=== PATIENT | female | born 1955 | race Hispanic/Latino ===

== ENCOUNTER 2018-01-11 13:19 | Emergency (ER) | payer BC, SELFPAY ==
[2018-01-11 14:10] LABS: #Lymphocytes 0.7 thou/uL (1.20-3.40); #Monocytes 0.1 thou/uL (0.11-0.59); #Neutrophils 6.1 thou/uL (1.40-6.50); %Basophils 0.1 % (0.0-1.0); %Eosinophils 0.3 % (0.0-10.0); %Monocytes 1.4 % (0.0-10.0); %Neutrophils 88.1 % (42.0-75.0); Hemoglobin 14.1 g/dL (12.0-16.0); Mean Corpuscular HGB CONC 35.2 g/dL (32.0-36.0); Mean Corpuscular Hemoglobin 30.8 pg (27.0-31.0); Mean Corpuscular Volume 87.4 fL (78.0-98.0); Mean Platelet Volume 8.4 fL (7.4-10.4); Platelet Count 203 thou/uL (130-400); RBC Distribution Width 12.6 % (11.5-14.5); Red Blood Cell (RBC) Count 4.57 mill/uL (4.20-5.40); White Blood Cell (WBC) Count 6.9 thou/uL (4.8-10.8)
[2018-01-11 14:34] LABS: ALT (SGPT) 25 U/L (8-55); AST (SGOT) 17 U/L (5-34); Albumin 4.3 g/dL (3.4-4.8); Alkaline Phosphatase 71 U/L (40-150); Anion Gap 16 mmol/L (10-20); BUN (Urea Nitrogen) 11 mg/dL (9.8-20.1); Bilirubin, Total 0.9 mg/dL (0.2-1.2); Calc. Creatinine Clearance 0 mL/min (70-130); Calcium 9.4 mg/dL (7.8-10.44); Carbon Dioxide 24 mmol/L (23-31); Chloride 101 mmol/L (98-107); Estimated GFR-MDRD 87; Globulin 3.3 g/dL (2.4-3.5); Glucose 214 mg/dL (80-115); Lipase Less than 4 U/L (8-78); Potassium 3.5 mmol/L (3.5-5.1); Protein, Total 7.6 g/dL (6.0-8.3); Sodium 137 mmol/L (136-145)
[2018-01-11 15:13] LABS: Bilirubin Negative (Negative); Blood, Urine Negative (Negative); Clarity CLEAR (Clear); Glucose, Urine (Dipstick) 250 mg/dL (Negative); Leukocyte Small (Negative); Nitrite Negative (Negative); Protein, Urine (Dipstick) Negative (Neg-Trace); Specific Gravity, Urine 1.017 (1.002-1.036); pH, Urine 6.5 (5.0-9.0)
[2018-01-11 15:14] LABS: Bacteria/HPF None Seen HPF (None Seen); Hyaline Casts/LPF 0-3 HYALINE CAST LPF (0-3 Hyaline); Pathc Cast-AUWi Flag 0.29 (0-2.49); RBC/HPF 0-3 HPF (0-3); Squamous Epithelial 0-3 HPF (0-3); WBC/HPF 0-3 HPF (0-3)
[2018-01-11 15:42] LABS: Troponin I Less than 0.010 ng/mL (< 0.028)
[2018-01-11] MEDS ORDERED: Ondansetron HCl/PF 4 MG/2 ML Vial ONE (15:49)
[2018-01-11] MEDS ORDERED: Morphine 4 MG/ML VIAL ONE (15:49)
--- NOTE | 2018-01-11 17:28 | CT ---
ABDOMEN CT WITHOUT CONTRAST PELVIC CT WITHOUT CONTRAST: Date: 01/11/18 COMPARISON: 08/23/16. HISTORY: Abdominal pain. Pelvic pain. TECHNIQUE: Abdomen and pelvic CT performed without contrast. Enteric contrast administered. Coronal reformatted images submitted for interpretation. FINDINGS: ABDOMEN CT: Lung bases are clear. Limited evaluation of the solid organs due to lack of IV contrast. There is hypoattenuation in the spleen, incompletely evaluated, with an attenuation coefficient of 35 Hounsfield units, measuring 2.8 x 2.5 cm. Lesion currently measures 2.5 x 2.2 cm. This area of hypoa ttenuation was present on the previous examination. Hypodensity in the right hepatic lobe is also unc hanged and has an attenuation coefficient of -1 Hounsfield units, compatible with hepatic cysts. Pancreas unremarkable. Gallbladder appears to be surgically absent. Exophytic hypodense emanating from the mid pole of the right kidney has an attenuation coefficient of 6 Hounsfield units, compatible with a 2.8 x 3.8 cm cyst. Cluster of nonobstructing calculi in the lo wer pole of the left kidney measuring 7.0 mm. Bilaterally, no obstructive uropathy. No gastrohepatic, retrocrural, or periportal lymphadenopathy. No mesenteric mass, lymphadenopathy, free air, or free fluid. Gastric mucosa, duodenum, and multiple normal caliber small bowel loops are noted. Ileocecal junction is normal. Normal caliber appendix. Scattered fecal material in a nondistended, nondilated colon. Oc casional diverticulum. No diverticulitis. PELVIC CT: Surgically absent uterus. No pelvic mass, lymphadenopathy, free air, or free fluid. Urinary bladder i s unremarkable. No lytic or blastic lesions in the osseous structures. IMPRESSION: 1. No evidence of obstructive uropathy. 2. Hypodensities in the spleen, liver, and kidneys, unchanged. 3. Hypodense lesion in the spleen has increased in size. Nonemergent abdomen MRI is recommended. CODE T. POS: [facility]
== END 2018-01-11 18:07 | disposition home or self-care (01) ==
LOC: ERS 13:19
DX: R11.2 Nausea with vomiting, unspecified (principal); R19.7 Diarrhea, unspecified; E11.9 Type 2 diabetes mellitus without complications; E78.5 Hyperlipidemia, unspecified; I10 Essential (primary) hypertension; F32.9 Major depressive disorder, single episode, unspecified; Z79.84 Long term (current) use of oral hypoglycemic drugs; Z79.899 Other long term (current) drug therapy
CPT/HCPCS: 36415; 74176; 80053; 81003; 81015; 83690; 84484; 85025; 93005; 96374; 96375; J2270; J2405

== ENCOUNTER 2018-03-26 20:47 | Emergency (ER) | payer SELFPAY ==
[2018-03-26] MEDS ORDERED: Ondansetron ODT 8 MG TAB ONE (21:03)
[2018-03-26] MEDS ORDERED: Lidocaine Viscous Sol 2% 15 ml UD Cup ONE (21:04)
[2018-03-26] MEDS ORDERED: Mag-Al 1200 mg/1200 mg/30 ML UDCUP ONE (21:04)
[2018-03-26 21:31] LABS: Bilirubin Negative (Negative); Blood, Urine Negative (Negative); Clarity CLEAR (Clear); Glucose, Urine (Dipstick) >=1000 mg/dL (Negative); Leukocyte Small (Negative); Nitrite Negative (Negative); Protein, Urine (Dipstick) Negative (Neg-Trace); Specific Gravity, Urine 1.036 (1.002-1.036); Urobilinogen 0.2 mg/dL (0.2-1.0); pH, Urine 5.5 (5.0-9.0)
[2018-03-26 21:34] LABS: Bacteria/HPF None Seen HPF (None Seen); Hyaline Casts/LPF 4-6 HYALINE CAST LPF (0-3 Hyaline); Pathc Cast-AUWi Flag 0.29 (0-2.49); Squamous Epithelial 0-3 HPF (0-3); WBC/HPF 21-50 HPF (0-3)
[2018-03-26 21:51] LABS: #Eosinphils 0.1 thou/uL (0.0-0.7); #Lymphocytes 1.1 thou/uL (1.20-3.40); #Monocytes 0.4 thou/uL (0.11-0.59); #Neutrophils 3.4 thou/uL (1.40-6.50); %Basophils 0.2 % (0.0-1.0); %Eosinophils 2.4 % (0.0-10.0); %Lymphocytes 21.8 % (21.0-51.0); %Monocytes 8.1 % (0.0-10.0); %Neutrophils 67.5 % (42.0-75.0); Hemoglobin 12.5 g/dL (12.0-16.0); Mean Corpuscular HGB CONC 33.5 g/dL (32.0-36.0); Mean Corpuscular Hemoglobin 30.2 pg (27.0-31.0); Mean Corpuscular Volume 90.2 fL (78.0-98.0); Mean Platelet Volume 9.5 fL (7.4-10.4); Platelet Count 166 thou/uL (130-400); RBC Distribution Width 12.3 % (11.5-14.5); Red Blood Cell (RBC) Count 4.15 mill/uL (4.20-5.40); White Blood Cell (WBC) Count 5.1 thou/uL (4.8-10.8)
[2018-03-26 22:16] LABS: ALT (SGPT) 21 U/L (8-55); AST (SGOT) 13 U/L (5-34); Albumin 3.6 g/dL (3.4-4.8); Alkaline Phosphatase 71 U/L (40-150); Anion Gap 12 mmol/L (10-20); BUN (Urea Nitrogen) 16 mg/dL (9.8-20.1); Bilirubin, Total 0.3 mg/dL (0.2-1.2); Calc. Creatinine Clearance 0 mL/min (70-130); Calcium 9.2 mg/dL (7.8-10.44); Carbon Dioxide 25 mmol/L (23-31); Chloride 105 mmol/L (98-107); Estimated GFR-MDRD 70; Globulin 2.7 g/dL (2.4-3.5); Glucose 327 mg/dL (80-115); Lipase 13 U/L (8-78); Potassium 3.7 mmol/L (3.5-5.1); Protein, Total 6.3 g/dL (6.0-8.3); Sodium 138 mmol/L (136-145)
== END 2018-03-26 22:25 | disposition home or self-care (01) ==
LOC: ERS 20:47
DX: N39.0 Urinary tract infection, site not specified (principal); R10.13 Epigastric pain; E78.5 Hyperlipidemia, unspecified; I10 Essential (primary) hypertension; F32.9 Major depressive disorder, single episode, unspecified; Z79.4 Long term (current) use of insulin; Z79.899 Other long term (current) drug therapy
CPT/HCPCS: 36415; 80053; 81003; 81015; 83690; 85025; 93005

== ENCOUNTER 2018-05-02 09:34 | Outpatient (CLI) | payer MEDICARE ==
--- NOTE | 2018-05-02 11:55 | MRI ---
MRI OF THE ABDOMEN WITHOUT AND WITH CONTRAST: Comparison: CT abdomen/pelvis 01-11-18, MRI abdomen 02-15-15 Technique: Multiplanar, multisequence MRI images were obtained of the abdomen without and with IV con trast. FINDINGS: There is a lobulated lesion in the spleen demonstrating high T2 signal. This measures 2.8 cm in great est dimension. After the administration of contrast, this demonstrates peripheral rim enhancement wit h eventual fill in. The delayed phase images show this lesion to be hyperintense compared to the rest of the spleen. This lesion is stable compared to the prior MRI and most likely represents a hemangio ma. There is a stable septated cyst in the right lobe of the liver measuring 2.6 cm in greatest dimension . There is a stable cyst in the right kidney measuring 3.9 cm in greatest dimension. There is a tiny subcentimeter lesion along the body of the pancreas measuring approximately 7 mm in size which could represent a small cyst emanating from the pancreas. This could also be artifactual. This was not seen on the prior examination. A small stable cyst is seen in the left kidney measuring approximately 1 c m in size. The adrenal glands are unremarkable. The gallbladder has been removed. No biliary dilatation is seen. No abdominal adenopathy is seen. Mild degenerative changes are seen in the spine. There appears to be a stable hemangioma within the L 1 vertebral body. IMPRESSION: 1. Stable splenic hemangioma. 2. Hepatic cysts. 3. Renal cysts. 4. Small hypodense region adjacent the pancreatic body may represent a small cyst. This could also be artifactual. POS: [facility]
[2018-05-02 13:04] LABS: Estimated GFR-MDRD - POC Greater than 90
== END 2018-05-02 09:35 | disposition home or self-care (01) ==
LOC: MRI 09:34
PROVIDERS: ATTEND Family Medicine
DX: R93.5 Abnormal findings on diagnostic imaging of other abdominal regions, including retroperitoneum (principal); D18.03 Hemangioma of intra-abdominal structures; K76.89 Other specified diseases of liver; N28.1 Cyst of kidney, acquired
CPT/HCPCS: 74183; 82565

== ENCOUNTER 2018-05-16 06:22 | Emergency (ER) | payer MEDICARE ==
[2018-05-16] MEDS ORDERED: Ondansetron PF 4 MG/2 ML Vial ONE (06:43)
[2018-05-16] MEDS ORDERED: Dicyclomine 20 MG TAB ONE (06:43)
[2018-05-16] MEDS ORDERED: Pantoprazole 40 MG VIAL ONE (06:43)
[2018-05-16 06:44] LABS: #Eosinphils 0.1 thou/uL (0.0-0.7); #Lymphocytes 0.8 thou/uL (1.20-3.40); #Monocytes 0.4 thou/uL (0.11-0.59); #Neutrophils 5.6 thou/uL (1.40-6.50); %Eosinophils 1.6 % (0.0-10.0); %Lymphocytes 11.9 % (21.0-51.0); %Monocytes 5.9 % (0.0-10.0); %Neutrophils 80.6 % (42.0-75.0); Hemoglobin 13.8 g/dL (12.0-16.0); Mean Corpuscular HGB CONC 34.4 g/dL (32.0-36.0); Mean Corpuscular Hemoglobin 30.2 pg (27.0-31.0); Mean Corpuscular Volume 87.7 fL (78.0-98.0); Mean Platelet Volume 9.5 fL (7.4-10.4); Platelet Count 198 thou/uL (130-400); RBC Distribution Width 12.2 % (11.5-14.5); Red Blood Cell (RBC) Count 4.59 mill/uL (4.20-5.40)
[2018-05-16 07:06] LABS: ALT (SGPT) 18 U/L (8-55); AST (SGOT) 17 U/L (5-34); Albumin 3.9 g/dL (3.4-4.8); Alkaline Phosphatase 109 U/L (40-150); Anion Gap 13 mmol/L (10-20); BUN (Urea Nitrogen) 14 mg/dL (9.8-20.1); Calc. Creatinine Clearance 0 mL/min (70-130); Calcium 9.7 mg/dL (7.8-10.44); Carbon Dioxide 26 mmol/L (23-31); Chloride 101 mmol/L (98-107); Estimated GFR-MDRD 83; Globulin 3.6 g/dL (2.4-3.5); Glucose 305 mg/dL (80-115); Lipase Less than 4 U/L (8-78); Potassium 3.2 mmol/L (3.5-5.1); Protein, Total 7.5 g/dL (6.0-8.3); Sodium 137 mmol/L (136-145)
--- NOTE | 2018-05-16 07:47 | RAD ---
PORTABLE CHEST 1 VIEW: Date: 05/16/18 Time: 0701 hours HISTORY: Chest pain. FINDINGS: The heart size is normal. The aorta is tortuous. The lungs are well expanded without focal areas of c onsolidation, pneumothoraces, or pleural effusions. IMPRESSION: No radiographic evidence of acute cardiopulmonary process. POS: [facility]
[2018-05-16] MEDS ORDERED: Ketorolac Tromethamine 30 MG/ML VIAL ONE (08:44)
[2018-05-16 10:16] LABS: Bilirubin Negative (Negative); Blood, Urine Negative (Negative); Clarity CLEAR (Clear); Glucose, Urine (Dipstick) >=1000 mg/dL (Negative); Leukocyte Negative (Negative); Nitrite Negative (Negative); Protein, Urine (Dipstick) Negative (Neg-Trace); Specific Gravity, Urine 1.031 (1.002-1.036); Urobilinogen 0.2 mg/dL (0.2-1.0); pH, Urine 6.5 (5.0-9.0)
--- NOTE | 2018-05-20 17:16 | EKG ---
Test Reason : Blood Pressure : / mmHG Vent. Rate : 085 BPM Atrial Rate : 085 BPM P-R Int : 136 ms QRS Dur : 070 ms QT Int : 370 ms P-R-T Axes : 027 -04 028 degrees QTc Int : 440 ms Normal sinus rhythm Normal ECG Confirmed by ROCÍO TATE ([id number]), editorial specialist BELÉN RAMOS ([id number]) on 05/20/2018 5:16:07 PM Referred By: BEBETO Confirmed By:ROCÍO TATE
== END 2018-05-16 10:59 | disposition home or self-care (01) ==
LOC: ERS 06:22
DX: R10.9 Unspecified abdominal pain (principal); E11.9 Type 2 diabetes mellitus without complications; Z79.4 Long term (current) use of insulin; E78.5 Hyperlipidemia, unspecified; I10 Essential (primary) hypertension; F32.9 Major depressive disorder, single episode, unspecified; Z79.899 Other long term (current) drug therapy; Z79.84 Long term (current) use of oral hypoglycemic drugs
CPT/HCPCS: 71045; 80053; 81003; 83605; 83690; 84484; 85025; 87086; 87804; 93005; 96361; 96374; 96375; C9113; J1885; J2405

== ENCOUNTER 2018-05-31 19:55 | Emergency (ER) | payer MEDICARE ==
[2018-05-31 20:46] LABS: #Eosinphils 0.1 thou/uL (0.0-0.7); #Monocytes 0.4 thou/uL (0.11-0.59); #Neutrophils 7.3 thou/uL (1.40-6.50); %Basophils 0.3 % (0.0-1.0); %Eosinophils 0.8 % (0.0-10.0); %Lymphocytes 11.4 % (21.0-51.0); %Monocytes 4.9 % (0.0-10.0); %Neutrophils 82.5 % (42.0-75.0); Hemoglobin 14.2 g/dL (12.0-16.0); Mean Corpuscular HGB CONC 33.5 g/dL (32.0-36.0); Mean Corpuscular Hemoglobin 29.5 pg (27.0-31.0); Mean Corpuscular Volume 88.1 fL (78.0-98.0); Mean Platelet Volume 9.6 fL (7.4-10.4); Platelet Count 205 thou/uL (130-400); RBC Distribution Width 12.4 % (11.5-14.5); White Blood Cell (WBC) Count 8.8 thou/uL (4.8-10.8)
[2018-05-31 21:06] LABS: ALT (SGPT) 25 U/L (8-55); AST (SGOT) 18 U/L (5-34); Albumin 4.1 g/dL (3.4-4.8); Alkaline Phosphatase 104 U/L (40-150); Anion Gap 18 mmol/L (10-20); BUN (Urea Nitrogen) 10 mg/dL (9.8-20.1); Bilirubin, Total 0.9 mg/dL (0.2-1.2); Calc. Creatinine Clearance 0 mL/min (70-130); Calcium 9.9 mg/dL (7.8-10.44); Carbon Dioxide 24 mmol/L (23-31); Chloride 98 mmol/L (98-107); Estimated GFR-MDRD 73; Globulin 3.3 g/dL (2.4-3.5); Glucose 310 mg/dL (80-115); Potassium 3.5 mmol/L (3.5-5.1); Protein, Total 7.4 g/dL (6.0-8.3); Sodium 136 mmol/L (136-145)
--- NOTE | 2018-05-31 21:51 | RAD ---
ACUTE ABDOMINAL SERIES: 05/31/18 PROVIDED CLINICAL HISTORY: Vomiting and constipation. FINDINGS: Comparison chest radiograph 05/16/18. The cardiac and mediastinal silhouette is within normal limits. Vascular calcification involves the a ortic arch. No focal consolidation, pleural fluid or pneumothorax apparent. Stable right mid lung zon e parenchymal scarring. No evidence for pneumoperitoneum. Nonspecific bowel gas pattern. Cholecystectomy clips right upper qu adrant. Inferior pole left renal calculi. IMPRESSION: 1. No evidence for an acute cardiopulmonary process. 2. Nonspecific bowel gas pattern. 3. Left renal calculi. POS: [facility]
[2018-05-31 22:33] LABS: Bilirubin Negative (Negative); Blood, Urine Negative (Negative); Glucose, Urine (Dipstick) >=1000 mg/dL (Negative); Leukocyte Negative (Negative); Nitrite Negative (Negative); Protein, Urine (Dipstick) Negative (Neg-Trace); Specific Gravity, Urine 1.015 (1.005-1.030); Urobilinogen 0.2 mg/dL (0.2-1.0)
[2018-05-31 22:34] LABS: Clarity Clear (Clear)
== END 2018-05-31 22:51 | disposition home or self-care (01) ==
LOC: ERS 19:55
DX: K59.00 Constipation, unspecified (principal); E11.9 Type 2 diabetes mellitus without complications; E78.5 Hyperlipidemia, unspecified; I10 Essential (primary) hypertension; F32.9 Major depressive disorder, single episode, unspecified; Z79.899 Other long term (current) drug therapy; Z79.84 Long term (current) use of oral hypoglycemic drugs
CPT/HCPCS: 36415; 74022; 80053; 81003; 85025

== ENCOUNTER 2018-07-03 07:16 | Outpatient (CLI) | payer MEDICARE ==
--- NOTE | 2018-07-03 13:38 | NM ---
RADIONUCLIDE GASTRIC EMPTYING SCAN: Date: 07/03/18 HISTORY: Abnormal weight loss, constipation, nausea, vomiting, and abdominal pain. RADIOPHARMACEUTICAL: 2.1 mCi technetium-99m sulfur colloid administered orally in scrambled eggs. FINDINGS: There is 22% emptying of the ingested gastric contents at 1 hour, 23% emptying at 2 hours, 28% emptyi ng at 3 hours, and 54% emptying at 4 hours. The calculated gastric emptying halftime measures 231 minutes. IMPRESSION: Delayed gastric emptying. POS: C
== END 2018-07-03 07:17 | disposition home or self-care (01) ==
LOC: NM 07:16
PROVIDERS: ATTEND Internal Medicine Gastroenterology
DX: R10.13 Epigastric pain (principal); R63.4 Abnormal weight loss
CPT/HCPCS: 78264; A9541

== ENCOUNTER 2018-07-08 06:49 | Emergency (ER) | payer MEDICARE ==
[2018-07-08] MEDS ORDERED: Ketorolac Tromethamine 30 MG/ML VIAL ONE (07:37)
== END 2018-07-08 08:02 | disposition home or self-care (01) ==
LOC: ERS 06:49
DX: M54.31 Sciatica, right side (principal); E11.9 Type 2 diabetes mellitus without complications; E78.5 Hyperlipidemia, unspecified; I10 Essential (primary) hypertension; Z79.4 Long term (current) use of insulin; Z79.899 Other long term (current) drug therapy
CPT/HCPCS: 96372; J1885

== ENCOUNTER 2018-08-27 11:44 | Emergency (ER) | payer MEDICARE ==
[2018-08-27] MEDS ORDERED: Metoclopramide HCl 10 MG/2 ML VIAL ONE (12:23)
--- NOTE | 2018-08-27 12:46 | RAD ---
FRadiograph chest one view Radiograph abdomen 2 views: 08/27/2018 HISTORY: 63-year-old female with generalized abdominal pain with nausea and vomiting. COMPARISON: 05/31/2018 FINDINGS: No pulmonary edema or consolidation. No cardiomegaly. No pneumothorax or pneumoperitoneum. Cholecyste ctomy clips. Normal bowel gas pattern. Less volume of stool currently compared to previous. No other significant interval change. Small left renal calculi, 2 adjacent to each other. IMPRESSION: 1. No acute findings. 2. Status post cholecystectomy. 3. Left nephrolithiasis.
[2018-08-27 12:55] LABS: #Lymphocytes 1.1 thou/uL (1.20-3.40); #Monocytes 0.3 thou/uL (0.11-0.59); #Neutrophils 4.8 thou/uL (1.40-6.50); %Basophils 0.2 % (0.0-1.0); %Eosinophils 0.8 % (0.0-10.0); %Lymphocytes 17.8 % (21.0-51.0); %Monocytes 4.5 % (0.0-10.0); %Neutrophils 76.7 % (42.0-75.0); Hemoglobin 13.8 g/dL (12.0-16.0); Mean Corpuscular HGB CONC 33.1 g/dL (32.0-36.0); Mean Corpuscular Hemoglobin 29.6 pg (27.0-31.0); Mean Corpuscular Volume 89.6 fL (78.0-98.0); Mean Platelet Volume 9.4 fL (7.4-10.4); Platelet Count 191 thou/uL (130-400); Red Blood Cell (RBC) Count 4.64 mill/uL (4.20-5.40); White Blood Cell (WBC) Count 6.2 thou/uL (4.8-10.8)
[2018-08-27] MEDS ORDERED: Ondansetron PF 4 MG/2 ML Vial ONE ×2 (12:58→12:59)
[2018-08-27] MEDS ORDERED: diphenhydrAMINE 50 MG/ML VIAL ONE (13:05)
[2018-08-27 13:08] LABS: ALT (SGPT) 24 U/L (8-55); AST (SGOT) 17 U/L (5-34); Albumin 4.3 g/dL (3.4-4.8); Alkaline Phosphatase 87 U/L (40-150); Anion Gap 12 mmol/L (10-20); BUN (Urea Nitrogen) 15 mg/dL (9.8-20.1); Bilirubin, Total 0.8 mg/dL (0.2-1.2); Calc. Creatinine Clearance 0 mL/min (70-130); Calcium 9.6 mg/dL (7.8-10.44); Carbon Dioxide 26 mmol/L (23-31); Chloride 101 mmol/L (98-107); Estimated GFR-MDRD 75; Glucose 336 mg/dL (80-115); Lipase 4 U/L (8-78); Potassium 3.3 mmol/L (3.5-5.1); Protein, Total 7.3 g/dL (6.0-8.3); Sodium 136 mmol/L (136-145)
== END 2018-08-27 14:11 | disposition home or self-care (01) ==
LOC: ERS 11:44
DX: E11.43 Type 2 diabetes mellitus with diabetic autonomic (poly)neuropathy (principal); K31.84 Gastroparesis; I10 Essential (primary) hypertension; Z79.4 Long term (current) use of insulin; Z79.899 Other long term (current) drug therapy
CPT/HCPCS: 74022; 80053; 83690; 84484; 85025; 93005; 96361; 96374; 96375; J1200; J2405; J2765

== ENCOUNTER 2018-08-28 03:56 | Emergency (ER) | payer MEDICARE ==
[2018-08-28] MEDS ORDERED: Haloperidol Lactate 5 MG/ML VIAL ONE (04:58)
[2018-08-28] MEDS ORDERED: Pantoprazole 40 MG VIAL ONE (04:58)
[2018-08-28] MEDS ORDERED: Dicyclomine 20 MG TAB ONE (04:58)
[2018-08-28 05:50] LABS: Bilirubin Negative (Negative); Blood, Urine Negative (Negative); Clarity CLEAR (Clear); Glucose, Urine (Dipstick) 500 mg/dL (Negative); Leukocyte Trace (Negative); Nitrite Negative (Negative); Protein, Urine (Dipstick) Negative (Neg-Trace); Specific Gravity, Urine 1.014 (1.002-1.036); Urobilinogen 0.2 mg/dL (0.2-1.0)
[2018-08-28 05:53] LABS: Bacteria/HPF None Seen HPF (None Seen); Hyaline Casts/LPF 0-3 HYALINE CAST LPF (0-3 Hyaline); Pathc Cast-AUWi Flag 0.13 (0-2.49); Squamous Epithelial 0-3 HPF (0-3); WBC/HPF 0-3 HPF (0-3)
[2018-08-28 06:06] LABS: #Eosinphils 0.1 thou/uL (0.0-0.7); #Monocytes 0.3 thou/uL (0.11-0.59); #Neutrophils 3.5 thou/uL (1.40-6.50); %Basophils 0.3 % (0.0-1.0); %Eosinophils 1.1 % (0.0-10.0); %Lymphocytes 20.8 % (21.0-51.0); %Monocytes 6.9 % (0.0-10.0); Hemoglobin 12.4 g/dL (12.0-16.0); Mean Corpuscular HGB CONC 33.2 g/dL (32.0-36.0); Mean Corpuscular Hemoglobin 29.7 pg (27.0-31.0); Mean Corpuscular Volume 89.2 fL (78.0-98.0); Mean Platelet Volume 9.3 fL (7.4-10.4); Platelet Count 165 thou/uL (130-400); Red Blood Cell (RBC) Count 4.18 mill/uL (4.20-5.40); White Blood Cell (WBC) Count 4.9 thou/uL (4.8-10.8)
[2018-08-28 06:29] LABS: ALT (SGPT) 21 U/L (8-55); AST (SGOT) 13 U/L (5-34); Albumin 3.9 g/dL (3.4-4.8); Alkaline Phosphatase 72 U/L (40-150); Anion Gap 12 mmol/L (10-20); BUN (Urea Nitrogen) 9 mg/dL (9.8-20.1); Bilirubin, Total 0.9 mg/dL (0.2-1.2); Calc. Creatinine Clearance 0 mL/min (70-130); Carbon Dioxide 23 mmol/L (23-31); Chloride 105 mmol/L (98-107); Estimated GFR-MDRD 79; Globulin 2.6 g/dL (2.4-3.5); Glucose 233 mg/dL (80-115); Lipase 4 U/L (8-78); Potassium 3.1 mmol/L (3.5-5.1); Protein, Total 6.5 g/dL (6.0-8.3); Sodium 137 mmol/L (136-145)
--- NOTE | 2018-08-28 08:35 | CT ---
CT ABDOMEN AND PELVIS WITHOUT IV CONTRAST: Date: 08/28/18 INDICATION: History of epigastric abdominal pain that is now severe since . COMPARISON: CT of the abdomen without contrast dated 01/11/18. MRI of abdomen dated 05/02/18. FINDINGS: The lack of IV contrast slightly limits image detail. Lung bases are clear. The hepatic and renal cysts are stable. Left-sided nephrolithiasis is stable. S plenic hemangioma is stable. Unopacified pancreas and adrenal glands are unremarkable appearing. Unopacified large and small bowel are within normal limits. There are multiple small calcifications within the left gonadal vein. No free fluid is evident. There is diffuse osteopenia. There is scattered degenerative and osteoarthritic change. There is a dali ny hemangioma within the right L1 vertebra. IMPRESSION: No definite acute CT abnormality. POS: [facility]
== END 2018-08-28 07:39 | disposition home or self-care (01) ==
LOC: ERS 03:56
DX: E11.43 Type 2 diabetes mellitus with diabetic autonomic (poly)neuropathy (principal); K31.84 Gastroparesis; E78.5 Hyperlipidemia, unspecified; I10 Essential (primary) hypertension; Z79.4 Long term (current) use of insulin; Z79.899 Other long term (current) drug therapy; Z79.84 Long term (current) use of oral hypoglycemic drugs
CPT/HCPCS: 36415; 74176; 80053; 81003; 81015; 83690; 85025; 93005; 96361; 96374; 96375; C9113; J1630

== ENCOUNTER 2019-01-30 07:49 | Emergency (ER) | payer MEDICARE ==
--- NOTE | 2019-01-30 09:24 | CT ---
CT LUMBAR SPINE WITHOUT CONTRAST: Date: 01/30/19 Multiplanar reconstructions. INDICATION: Back pain. Right leg pain. FINDINGS: Lumbar vertebra maintain normal height and alignment. There is no evidence of spondylolisthesis. No c ompression or fracture. Degenerative disc changes are prominent at L4-5 with vacuum phenomenon and di sc narrowing. At L1-2, no significant disc bulge. No central canal or foraminal stenosis. At L2-3, there is mild diffuse disc bulge. Mild to moderate facet hypertrophy. Mild central canal jacqueline nosis. At L3-4, mild diffuse disc bulge flattens the thecal sac. Mild to moderate facet hypertrophy. Mild ce ntral canal stenosis. At L4-5, degenerative disc changes as noted above. Mild diffuse disc bulge. Moderate facet hypertroph y. Mild to moderate central canal stenosis. Left foraminal stenosis secondary to disc bulge and hyper trophic change. At L5-S1, there is mild disc bulge. No significant central canal or foraminal stenosis. IMPRESSION: Degenerative disc changes are most prominent at the L4-5 level. See description at each level above. POS: [facility]
--- NOTE | 2019-01-30 09:27 | CT ---
CT PELVIS WITHOUT IV CONTRAST: Date: 01/30/19 INDICATION: Emergency room examination for right leg pain extending from the hip to the knee for 2-3 days with a history of sciatica. FINDINGS: There is an intramuscular lipoma involving the left iliacus extending down the anterior left leg, lydia ng the course of the tendon, measuring approximately 5.4 x 13.0 cm. There are scattered vascular calcifications. Unopacified large and small bowel are unremarkable appea ring. The reproductive structures are surgically absent. There is a normal appendix in the right lowe r quadrant. There are fat-containing inguinal hernias bilaterally. There is diffuse osteopenia. No displaced fracture is grossly evident. There is moderate degenerative change of both SI joints. There is mild degenerative change of both hips. IMPRESSION: 1. No acute displaced fracture involving the pelvis. 2. 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 3. Other chronic findings as above. POS: [facility]
[2019-01-30] MEDS ORDERED: Diazepam 5 MG TAB ONE (09:37)
== END 2019-01-30 09:50 | disposition home or self-care (01) ==
LOC: ERS 07:49
DX: M51.36 Other intervertebral disc degeneration, lumbar region (principal); E11.9 Type 2 diabetes mellitus without complications; I10 Essential (primary) hypertension; Z79.899 Other long term (current) drug therapy
CPT/HCPCS: 72131; 72192

== ENCOUNTER 2019-05-04 10:05 | Emergency (ER) | payer MEDICARE ==
[2019-05-04] MEDS ORDERED: Ondansetron ODT 8 MG TAB ONE (11:16)
[2019-05-04] MEDS ORDERED: Ondansetron PF 4 MG/2 ML Vial ONE (11:17)
[2019-05-04 11:34] LABS: #Lymphocytes 0.8 thou/uL (1.20-3.40); #Monocytes 0.4 thou/uL (0.11-0.59); #Neutrophils 6.5 thou/uL (1.40-6.50); %Basophils 0.2 % (0.0-1.0); %Eosinophils 0.1 % (0.0-10.0); %Lymphocytes 10.3 % (21.0-51.0); %Monocytes 5.6 % (0.0-10.0); %Neutrophils 83.8 % (42.0-75.0); Hemoglobin 12.6 g/dL (12.0-16.0); Mean Corpuscular HGB CONC 32.5 g/dL (32.0-36.0); Mean Corpuscular Hemoglobin 28.6 pg (27.0-31.0); Mean Corpuscular Volume 87.9 fL (78.0-98.0); Mean Platelet Volume 9.5 fL (7.4-10.4); Platelet Count 224 thou/uL (130-400); RBC Distribution Width 12.3 % (11.5-14.5); Red Blood Cell (RBC) Count 4.42 mill/uL (4.20-5.40); White Blood Cell (WBC) Count 7.7 thou/uL (4.8-10.8)
--- NOTE | 2019-05-04 11:49 | RAD ---
XR Abdomen 2 View/1 View Cxr History: Nausea and vomiting Comparison: Radiograph abdomen August 2018 Findings: Abnormal nodular density projects over the right upper lobe. Mild rightward curvature of th e thoracic spine. No pneumothorax. No effusion. Low-grade S-shaped scoliosis thoracolumbar spine. Reported surgical clips. There appear to be calcifications projecting over the left and right renal collecting systems. No dilated loops of large or small bowel. Mild degenerative disease of the SI joints. Impression: 1. Abnormal nodular density projecting over the right upper lobe for which nonemergent chest CT recom mended for further evaluation. 2. Bilateral nephrolithiasis. 3. No evidence for bowel obstruction.
[2019-05-04 11:58] LABS: ALT (SGPT) 20 U/L (8-55); AST (SGOT) 18 U/L (5-34); Albumin 4.4 g/dL (3.4-4.8); Alkaline Phosphatase 71 U/L (40-110); Anion Gap 14 mmol/L (10-20); BUN (Urea Nitrogen) 22 mg/dL (9.8-20.1); Bilirubin, Total 1.1 mg/dL (0.2-1.2); CK (CPK) 44 U/L (29-168); Calc. Creatinine Clearance 0 mL/min (70-130); Calcium 9.6 mg/dL (7.8-10.44); Carbon Dioxide 29 mmol/L (23-31); Chloride 99 mmol/L (98-107); Estimated GFR-MDRD 77; Glucose 190 mg/dL (80-115); Protein, Total 7.4 g/dL (6.0-8.3); Sodium 139 mmol/L (136-145)
[2019-05-04 12:50] LABS: Bacteria/HPF 4+ HPF (None Seen); Bilirubin Negative (Negative); Blood, Urine 1+ (Negative); Clarity Turbid (Clear); Glucose, Urine (Dipstick) Normal (Negative); Leukocyte 500 Leu/uL (Negative); Mucous/LPF 1+ LPF (<2+); Nitrite Negative (Negative); Protein, Urine (Dipstick) 50 mg/dL (Neg-Trace); Squamous Epithelial 0-3 HPF (0-3); Urobilinogen 3 mg/dL (Less than 2); WBC/HPF 21-50 HPF (0-3)
== END 2019-05-04 13:12 | disposition home or self-care (01) ==
LOC: ERS 10:05
DX: R11.2 Nausea with vomiting, unspecified (principal); R19.7 Diarrhea, unspecified; R10.9 Unspecified abdominal pain; E11.9 Type 2 diabetes mellitus without complications; E78.5 Hyperlipidemia, unspecified; E78.00 Pure hypercholesterolemia, unspecified; I10 Essential (primary) hypertension; Z79.899 Other long term (current) drug therapy; Z79.4 Long term (current) use of insulin; Z79.84 Long term (current) use of oral hypoglycemic drugs
CPT/HCPCS: 74022; 80053; 81003; 81015; 82550; 84484; 85025; 93005; 96361; 96374; J2405

== ENCOUNTER 2020-02-18 11:58 | Outpatient (CLI) | payer MEDICARE ==
--- NOTE | 2020-02-19 13:59 | MMO ---
Bilateral MAMMO Bilat Screen [facility]. CLINICAL HISTORY: Patient is 64 years old and is seen for screening. The patient has the following family history of breast cancer: sister. The patient has no personal history of cancer. The patient has a history of left needle biopsy more than 10 years ago - benign. VIEWS: The views performed were: bilateral craniocaudal with tomosynthesis and bilateral mediolateral oblique with tomosynthesis. This study has been interpreted with the assistance of computer-aided detection. MAMMOGRAM FINDINGS: There are scattered fibroglandular densities. There are benign appearing calcifications seen in both breasts. There are also vascular calcifications. There are no suspicious masses, suspicious calcifications, or new areas of architectural distortion. IMPRESSION: THERE IS NO MAMMOGRAPHIC EVIDENCE OF MALIGNANCY. A ROUTINE FOLLOW-UP MAMMOGRAM IN 1 YEAR IS RECOMMENDED. THE RESULTS OF THIS EXAM WERE SENT TO THE PATIENT. ACR BI-RADS Category 2 - Benign finding MAMMOGRAPHY NOTE: 1. A negative mammogram report should not delay a biopsy if a dominant of clinically suspicious mass is present. 2. Approximately 10% to 15% of breast cancers are not detected by mammography. 3. Adenosis and dense breasts may obscure an underlying neoplasm. Reported by: TOYA SIMMONS MD Electonically Signed: [id number]
== END 2020-02-18 11:59 | disposition home or self-care (01) ==
LOC: BICMAMMO 11:58
PROVIDERS: ATTEND Nurse Practitioner Family
DX: Z12.31 Encounter for screening mammogram for malignant neoplasm of breast (principal); Z80.3 Family history of malignant neoplasm of breast; Z91.89 Other specified personal risk factors, not elsewhere classified
CPT/HCPCS: 77063; 77067

== ENCOUNTER 2020-05-09 16:05 | Inpatient (IN) | payer MEDICARE ==
[~2020-05-09 16:05] MED LIST: Iopamidol-370 76% 500 ML 1 ML ONE
[2020-05-09 16:52] LABS: Hemoglobin 10.3 g/dL (12.0-16.0); Mean Corpuscular HGB CONC 32.9 g/dL (32.0-36.0); Mean Corpuscular Hemoglobin 26.2 pg (27.0-31.0); Mean Corpuscular Volume 79.8 fL (78.0-98.0); Mean Platelet Volume 9.9 fL (7.4-10.4); Platelet Count 162 thou/uL (130-400); RBC Distribution Width 15.1 % (11.5-14.5); Red Blood Cell (RBC) Count 3.94 mill/uL (4.20-5.40); White Blood Cell (WBC) Count 11.2 thou/uL (4.8-10.8)
--- NOTE | 2020-05-09 16:57 | RAD ---
XR Chest 1 View Portable HISTORY: Shortness of breath COMPARISON: 05/21/2019 FINDINGS: The heart size is normal. The lungs are well expanded without focal areas of consolidation, pneumothorax or pleural effusions. Nodular density in the right midlung is stable. There is scoliosis of the spine. IMPRESSION: No radiographic evidence of acute cardiopulmonary process. RECOMMENDATION: Evaluation of the right lung nodule with CT scan is recommended
[2020-05-09 17:04] LABS: ALT (SGPT) Less than 7 U/L (8-55); AST (SGOT) 8 U/L (5-34); Albumin 2.9 g/dL (3.4-4.8); Alkaline Phosphatase 138 U/L (40-110); Anion Gap 18 mmol/L (10-20); BUN (Urea Nitrogen) 19 mg/dL (9.8-20.1); Bilirubin, Total 0.8 mg/dL (0.2-1.2); Calc. Creatinine Clearance 0 mL/min (70-130); Calcium 8.1 mg/dL (7.8-10.44); Carbon Dioxide 24 mmol/L (23-31); Chloride 89 mmol/L (98-107); Globulin 3.9 g/dL (2.4-3.5); Glucose 522 mg/dL (80-115); Lipase Less than 4 U/L (8-78); Magnesium 1.6 mg/dL (1.6-2.6); Protein, Total 6.8 g/dL (6.0-8.3); Sodium 128 mmol/L (136-145)
[2020-05-09 17:08] LABS: Potassium 2.6 mmol/L (3.5-5.1)
[2020-05-09] MEDS ORDERED: methylPREDNISolone Sod Succ 40 MG VIAL ONE (17:20)
[2020-05-09] MEDS ORDERED: Famotidine/PF 20 mg/2ml Vial ONE (17:20)
[2020-05-09] MEDS ORDERED: Ondansetron PF 4 MG/2 ML Vial ONE (17:20)
[2020-05-09] MEDS ORDERED: diphenhydrAMINE 50 MG/ML VIAL ONE (17:20)
[2020-05-09] MEDS ORDERED: Promethazine HCl 25 MG/ML VIAL ONE (17:20)
[2020-05-09 17:32] LABS: Band 13 % (5-11); Large Platelets SLIGHT; Lymphocytes 2 % (21-51); MDiff Complete? YES; Monocytes 2 % (0-10); Neutrophil 83 % (42-75); Platelet Morphology Comment Appears Adequate; Polychromasia MODERATE = 3-4 cells (100X) (0-2/hpf); Schistocytes SLIGHT = 2-5 cells (100X) (0-1/hpf)
[2020-05-09 18:01] LABS: Bilirubin Negative (Negative); Blood, Urine 3+ (Negative); Clarity Turbid (Clear); Glucose, Urine (Dipstick) Greater than 1000 mg/dL (Negative); Ketone, Urine 10 mg/dL (Negative); Leukocyte 500 Leu/uL (Negative); Nitrite 2+ (Negative); Protein, Urine (Dipstick) 30 mg/dL (Neg-Trace); Specific Gravity, Urine 1.024 (1.002-1.036); Urobilinogen Normal mg/dL (Less than 2); WBC/HPF Greater than 50 HPF (0-3); pH, Urine 5.5 (5.0-9.0)
[2020-05-09 18:03] LABS: Bacteria/HPF 1+ HPF (None Seen)
[2020-05-09] MEDS ORDERED: Potassium Chloride 20 MEQ TAB ONE (18:11)
[2020-05-09] MEDS ORDERED: NS 0.9% w/ 40 MEQ KCL 1,000 ML IV SCH (18:30)
[2020-05-09] MEDS ORDERED: Insulin Regular 300 UNITS/3 ML VIAL ONE (19:06)
[2020-05-09] MEDS ORDERED: cefTRIAXone\\ROCEPHIN 1 GM VIAL ONE (19:06)
[2020-05-09 19:14] LABS: SARS-CoV-2 NAA Rapid Test Not Detected (NotDetected)
--- NOTE | 2020-05-09 19:19 | CT ---
EXAM: CT chest, abdomen, and pelvis with IV contrast: HISTORY: Hyperglycemia and abdominal pain with nausea and vomiting. COMPARISON: CT abdomen and pelvis on 01/27/2016. Patient has prior study study on 08/28/2018, the images are not avai lable for evaluation. FINDINGS: CT THORAX: Lungs: There is a spiculated right upper lobe mass measuring 2.3 cm which corresponds to the chest x- ray abnormality obtained on today's date. This is worrisome for neoplastic process. PET CT scan examination is recommended. There is linear hypodensity which extends laterally from this mass. Dependent bibasilar atelectasis is present. No additional mass is seen, and there is no pulmonary nod ule or pleural effusion. Lymph nodes: No enlarged mediastinal or hilar lymph nodes are seen by CT size criteria. Mediastinum: Vascular calcifications are seen in the coronary arteries and involving the thoracic aor ta. Interstitial very small hiatal hernia. Chest wall: No abnormalities CT ABDOMEN AND PELVIS: Liver: Calcified granuloma is present. Right hepatic lobe cyst is again noted. Gallbladder: Surgically absent.\ Pancreas: Small hypodense cystic lesion body the pancreas measuring 8 mm. Patient does have prior CT abdomen on 08/28/2018, and direct comparison with that study is recommended. This study is currently not available. Spleen:Stable hypodense lesion within the body of the spleen. This was shown to represent a hemangiom a on a prior MRI abdomen in 2016. This lesion is also stable when compared to CT abdomen in 2016. Adrenal glands: Right adrenal nodule measuring 1.4 cm. Left adrenal gland has a normal CT appearance. Kidneys: Stable Bosniak type II right renal cyst with cyst stable in size with persistent thin septat ion noted. Subcentimeter too small to characterize inferior pole left renal hypodense lesion is present which is also stable likely due to cyst. Stable inferior pole nonobstructing left renal calcu magan is noted. Urinary Bladder: Normal CT appearance but does extend just posterior to the level of the pubic symphy sis. Reproductive organs: Evidence of hysterectomy. Bowel: Scattered colonic diverticuli present. Loops of small bowel are normal in caliber. The appendi x is visualized and normal in caliber. Adenopathy:No enlarged lymph nodes are seen by CT size criteria. Peritoneum: No free fluid or fluid collection is seen. No free intraperitoneal gas is identified. Abdominal wall: There are findings likely due to prior hernia repair in the midline supraumbilical lo cation. Osseous structures: Degenerative changes are seen in the spine. No suspicious lytic or sclerotic osse ous lesions are identified. Hemangioma is seen in the L1 vertebral body. IMPRESSION: 1. Right upper lobe mass worrisome for neoplastic process. PET CT scan is recommended for further federico luation. 2. Small hypodense cystic lesion in the body the pancreas measuring 8 mm. Prior study was performed o n 08/28/2018; however, this study is not available for direct comparison at this time to evaluate for stability of this cystic pancreatic lesion. Direct comparison with prior exam is recommended. 3. Right adrenal nodule. This can also be further evaluated when prior CT abdomen becomes available f or direct comparison. 4. Additional findings as above.
[2020-05-09] MEDS ORDERED: Morphine 4 MG/ML VIAL ONE (20:36)
[2020-05-09] MEDS ORDERED: Dextrose 50% Abboject 50 ML SYRINGE SLOW IVP PRN (21:13)
[2020-05-09] MEDS ORDERED: HumaLOG 300 UNITS/3 ML VIAL SC PRN (21:13)
[2020-05-09] MEDS ORDERED: Dextrose 5% in Water 1,000 ML IV PRN (21:13)
[2020-05-09] MEDS ORDERED: Sodium Chloride 0.9% 1,000 ML IV SCH (21:15)
[2020-05-09 21:55] VITALS: BMI 25.8
[2020-05-09 22:54] LABS: Anion Gap 15 mmol/L (10-20); BUN (Urea Nitrogen) 16 mg/dL (9.8-20.1); Calc. Creatinine Clearance 75 mL/min (70-130); Calcium 7.9 mg/dL (7.8-10.44); Carbon Dioxide 24 mmol/L (23-31); Chloride 98 mmol/L (98-107); Glucose 374 mg/dL (80-115); Sodium 134 mmol/L (136-145)
[2020-05-09 22:59] LABS: Potassium 2.8 mmol/L (3.5-5.1)
[2020-05-09] MEDS ORDERED: Promethazine HCl 6.25 MG in Sodium Chloride 0.9% 50 ML IVPB PRN (23:41)
[2020-05-09] MEDS: Ondansetron PF 4 MG/2 ML Vial IVP PRN (23:44)
[2020-05-09] MEDS ORDERED: Potassium Chloride 40 MEQ in Sodium Chloride 0.9% 250 ML 250 ML IVPB SCH (23:59)
[2020-05-10] MEDS ORDERED: Insulin Glargine 15 UNITS in Pre-Filled Syringe 1 EACH SC SCH ×2 (00:15→21:00)
[2020-05-10] MEDS: Morphine 4 MG/ML VIAL SLOW IVP PRN ×5 (01:05→20:50)
--- NOTE | 2020-05-10 02:03 | HP ---
REASON FOR ADMISSION: Abdominal pain, nausea, vomiting. HISTORY OF PRESENT ILLNESS: This is a 65-year-old female patient who presented to the emergency room reporting nausea and vomiting and abdominal pain history going back to the day of her presentation. After being started on Victoza, she developed worsening of her ongoing nausea, vomiting, and abdominal pain that have been going on for the past couple of days as per her . She describes the pain as cramping in nature, localized in the upper abdominal area, mainly in the epigastric area with worsening of her heartburn. She did not have any diarrhea. No fevers. No chills. No dysuria. In the ER, she was found to have a urinary tract infection, also low sodium and low potassium level. As per , she has not been eating much for the past 3 days. PAST MEDICAL HISTORY: 1. Diabetes type 2. 2. Status post cholecystectomy. 3. High cholesterol. 4. GERD. 5. High blood pressure. SOCIAL HISTORY: She never smoked. Does not drink alcohol. FAMILY HISTORY: Negative for premature coronary artery disease. REVIEW OF SYSTEMS: All systems reviewed, except the above mentioned, found to be negative. PHYSICAL EXAMINATION: GENERAL: Awake, alert, oriented. Does report abdominal pain. Does report being nauseous. VITAL SIGNS: Her blood pressure is 168/93, pulse of 101, temperature 99.3, and saturating 100% on room air. HEENT: Head is nontraumatic and normocephalic. Pupils are equal and reactive. Extraocular movements are intact. Nonicteric sclerae. Well-injected conjunctivae. Oral mucosa normal. Nasal mucosa normal. NECK: Supple. No adenopathy. No murmur. Thyroid is not palpable. Trachea is midline. No supraclavicular lymphadenopathy. HEART: S1 and S2 regular. Faint systolic murmur heard. LUNGS: Clear to auscultation bilaterally. No wheezes, rhonchi, or crackles. ABDOMEN: Bowel sounds are positive. Tenderness on palpation of the epigastric area. Overall, the abdomen is soft. EXTREMITIES: No lower extremity edema. No cyanosis noted. NEUROLOGIC: Cranial nerves 2 through 12 within normal limits. Normal motor function. Normal sensory function. Normal reflexes. LABORATORY DATA: Blood work shows WBC of 11.2, hemoglobin of 10.3, platelets of 162, bands of 13, neutrophil count 83%. Sodium 128, potassium 2.6, bicarb 24, glucose 522, alkaline phosphatase 138, ALT less than 7. TSH 0.1731. Urinalysis shows positive nitrites, 500 leukocyte esterase, 11 to 20 rbc, greater than 50 wbc. COVID-19 negative. IMAGING: A CT of the abdomen and pelvis shows: 1. Right upper lobe mass, worrisome for neoplastic process. PET-CT scan is recommended for further evaluation. 2. Small hypodense cystic lesion in the body of the pancreas measuring 8 mm. Prior study was performed in 2019; however, this study is not available for direct comparison at this time to evaluate for stability of this cystic pancreatic lesion. Direct comparison with prior exam is recommended. 3. Right adrenal nodule. This can be further evaluated when prior CT of the abdomen becomes available for direct comparison. Additional finding as above. ASSESSMENT AND PLAN: This is a 65-year-old female patient who is presenting with abdominal pain, found to be hyponatremic, hypokalemic, most likely due to poor oral intake. Also, her diabetes is not well controlled. Her nausea and vomiting got worse after receiving her first dose of Victoza. Not sure whether she has chronic gastroparesis or peptic ulcer disease. Incidentally, she was found to have a lung mass as well as adrenal nodule. These are new findings for her. Gastrointestinal: The patient continues to be nauseous and has abdominal pain, could be peptic ulcer disease, could be gastroparesis, could be due to Victoza. For now, we will keep her n.p.o. We will provide her with IV morphine for pain control, and we will provide her with antiemetics. Hematology: The patient has new anemia. Also finding on CAT scan could indicate a neoplastic process. We will have Hematology assess her. For deep venous thrombosis prophylaxis, she will be on heparin subcutaneously. Renal system, electrolytes: The patient is hyponatremic, hypokalemic, most likely due to dehydration in the setting of poor oral intake. Her corrected sodium to her glucose would be 135. The patient will be on IV fluids. We will recheck her electrolytes later on. She did receive some potassium replacement. Endocrinology: She is diabetic. Her diabetes is uncontrolled. We will administer insulin. We will have her on Lantus. We will stop Victoza. She also has low TSH. We will check T4 and T3 in a.m. For her urinary tract infection, she will be on Rocephin. Awaiting urine culture results. The patient will be admitted to telemetry for closer monitoring. We will also have her on IV Lopressor for blood pressure control. Job ID: [id number]
[2020-05-10 05:03] LABS: ALT (SGPT) 8 U/L (8-55); AST (SGOT) 14 U/L (5-34); Alkaline Phosphatase 133 U/L (40-110); Anion Gap 19 mmol/L (10-20); BUN (Urea Nitrogen) 17 mg/dL (9.8-20.1); Bilirubin, Total 0.5 mg/dL (0.2-1.2); Calc. Creatinine Clearance 79 mL/min (70-130); Calcium 8.2 mg/dL (7.8-10.44); Carbon Dioxide 19 mmol/L (23-31); Chloride 100 mmol/L (98-107); Globulin 3.9 g/dL (2.4-3.5); Glucose 372 mg/dL (80-115); Potassium 3.7 mmol/L (3.5-5.1); Protein, Total 6.9 g/dL (6.0-8.3); Sodium 134 mmol/L (136-145)
[2020-05-10] MEDS: Metoprolol Tartrate 5 MG/5 ML VIAL IVP PRN ×2 (05:17→12:45)
[2020-05-10 05:22] LABS: Free T4 (Free Thyroxine) 1.26 ng/dL (0.70-1.48)
[2020-05-10] MEDS: Ondansetron PF 4 MG/2 ML Vial IVP PRN ×3 (07:02→20:49)
[2020-05-10] MEDS ORDERED: Sodium Chloride 0.9% 10 ML ONE (07:37)
[2020-05-10] MEDS: Pantoprazole 40 MG VIAL IVP SCH ×2 (08:05→20:50)
[2020-05-10] MEDS: Heparin 5,000 UNITS/ML VIAL SC SCH ×3 (08:16→20:50)
[2020-05-10] MEDS ORDERED: FLU VACC QS2020-21(65YR UP)/PF 240 MCG/0.7 ML SYRINGE IM ONE (09:00)
[2020-05-10] MEDS ORDERED: Insulin Glargine 5 UNITS in Pre-Filled Syringe 1 EACH SC SCH (09:00)
[2020-05-10] MEDS ORDERED: Sodium Chloride 0.9% 1,000 ML IV SCH ×2 (09:23→12:45)
[2020-05-10] MEDS ORDERED: Amlodipine 5 MG TAB PO SCH (09:30)
[2020-05-10] MEDS ORDERED: SODIUM CHLORIDE 0.9% IVPB SCH (12:45)
[2020-05-10] MEDS ORDERED: HUMULIN R IVPB SCH (12:45)
[2020-05-10] MEDS: Piperacillin/Tazobactam 3.375 GM in Sodium Chloride 0.9% 100 ML IVPB SCH ×3 (12:47→23:35)
[2020-05-10 13:26] LABS: Hemoglobin 9.9 g/dL (12.0-16.0); Mean Corpuscular HGB CONC 32.8 g/dL (32.0-36.0); Mean Corpuscular Hemoglobin 26.9 pg (27.0-31.0); Mean Platelet Volume 9.5 fL (7.4-10.4); Platelet Count 165 thou/uL (130-400); RBC Distribution Width 15.3 % (11.5-14.5); Red Blood Cell (RBC) Count 3.68 mill/uL (4.20-5.40); White Blood Cell (WBC) Count 14.1 thou/uL (4.8-10.8)
[2020-05-10] MEDS ORDERED: HUMULIN R 100 UNITS in Sodium Chloride 0.9% 100 ML IVPB SCH ×2 (13:45→16:45)
[2020-05-10 13:49] LABS: ALT (SGPT) 8 U/L (8-55); AST (SGOT) 11 U/L (5-34); Albumin 2.9 g/dL (3.4-4.8); Alkaline Phosphatase 127 U/L (40-110); Anion Gap 18 mmol/L (10-20); BUN (Urea Nitrogen) 17 mg/dL (9.8-20.1); Bilirubin, Total 0.4 mg/dL (0.2-1.2); Calc. Creatinine Clearance 82 mL/min (70-130); Calcium 7.9 mg/dL (7.8-10.44); Carbon Dioxide 22 mmol/L (23-31); Chloride 100 mmol/L (98-107); Globulin 3.2 g/dL (2.4-3.5); Glucose 323 mg/dL (80-115); Potassium 3.3 mmol/L (3.5-5.1); Protein, Total 6.1 g/dL (6.0-8.3); Sodium 137 mmol/L (136-145)
--- NOTE | 2020-05-10 14:05 | CON ---
DATE OF CONSULTATION: 05/10/2020 REASON FOR CONSULTATION: Possible lung mass. HISTORY OF PRESENT ILLNESS: Clara is a 65-year-old female, who comes to the hospital with nausea, malaise and abdominal pain going on for several days prior to presentation. She is a type 2 diabetic. As part of the workup, she had a CT of the chest, abdomen and pelvis. It showed a 2 cm right upper lobe lung nodule right along the horizontal fissure. It has a tail reaching to the pleural space. The radiologist read as spiculated, but it does not have much of a spiculated presence on my read. She knows of no abnormal x-rays in the past. She had a chest x-ray back in 2018, but I am unable to compare the films. She is a never smoker. She has no previous history of cancer. PAST MEDICAL HISTORY: 1. Type 2 diabetes mellitus, now insulin requiring. 2. Cholecystectomy. 3. Hyperlipidemia. 4. Gastroesophageal reflux. 5. Hypertension. SOCIAL HISTORY: Never smoked. Does not consume alcohol. FAMILY MEDICAL HISTORY: Unremarkable. REVIEW OF SYSTEMS: 12-point review of systems is otherwise negative including no hemoptysis. PHYSICAL EXAMINATION: VITAL SIGNS: Temperature 97.9, pulse 82, blood pressure 192/93, O2 saturation 96% on room air. HEENT: Unremarkable. NECK: No adenopathy, JVD. LUNGS: Clear. CARDIAC: S1 and S2. Regular. ABDOMEN: Soft and nontender. EXTREMITIES: No clubbing, cyanosis, or edema. LABORATORY DATA: White blood cell count 11.2, hematocrit 31.4, and platelet count 162. Sodium 134, potassium 3.7, chloride 100, CO2 of 19, BUN 17, creatinine 0.8, glucose 372. Anion gap is 15 but actually probably higher because she is hypoalbuminemic. Her urinalysis showed greater than 50 white blood cells. Beta-hydroxybutyrate is 2.5. COVID test negative. Her blood culture is growing Klebsiella pneumonia. I reviewed her CT scan in detail. ASSESSMENT: 1. Right upper lobe lung mass versus focal pneumonia versus scar. 2. DKA, which is mild. RECOMMENDATIONS: I would recommend treating this lady with antibiotics as you are doing with the Zosyn. She should have a PET scan in 3 to 4 weeks after discharge. It is important that her blood sugars be controlled prior to the PET scan as PET scans can be altered based on uncontrolled diabetes. I will get a QuantiFERON test while she is in the hospital. Job ID: [id number]
[2020-05-10] MEDS ORDERED: Potassium Chloride 10 MEQ in Premix Bag 1 BAG IVPB SCH (15:30)
[2020-05-10] MEDS ORDERED: Dextrose 50% Abboject 50 ML SYRINGE SLOW IVP PRN (16:42)
[2020-05-10] MEDS ORDERED: Insulin Regular 300 UNITS/3 ML VIAL IVP SCH (16:45)
[2020-05-10] MEDS ORDERED: Sodium Chloride 0.9% 1,000 ML IV PRN ×4 (16:45)
[2020-05-10] MEDS ORDERED: Dextrose 5 %-0.45 % NaCl 1,000 ML IV PRN (16:45)
[2020-05-10] MEDS ORDERED: NS 0.9% w/ 20 MEQ KCL 1,000 ML/1,000 ML BAG IV PRN ×2 (16:45)
[2020-05-10] MEDS ORDERED: ADD ELECTROLYTE REPLACEMENT SET TO PROFILE FS SCH (16:45)
[2020-05-10] MEDS ORDERED: Dextrose 5% in Water 1,000 ML IV PRN (16:45)
--- NOTE | 2020-05-10 17:25 | PDOC.HOSPP ---
- Subjective Encounter Date: 05/10/20 Encounter Time: 12:45 Subjective: F/u: bacteremia The patient has been having severe abdominal pain, states that it is diffuse. She has been vomiting constantly per nursing and is unable to swallow pills. She did report some dysuria The patient received lantus 15 units last night and blood sugar this am was still > 330. Repeat noon blood sugar is around 300. Repeat beta-hydroxybutyrate trending up BP was 190 this morning, not significantly improved with IV antihypertensive - Objective Vital Signs & Weight: Vital Signs (12 hours) Temp Pulse Resp BP BP Pulse Ox 05/10/20 12:48 82 192/93 H 05/10/20 08:26 97.9 F 82 18 178/86 H 96 05/10/20 08:00 96 05/10/20 06:02 183/88 H Weight Admit Weight 160 lb 4.8 oz Weight 160 lb 4.8 oz I&O: 05/09/20 05/10/20 05/11/20 06:59 06:59 06:59 Output Total 600 Balance -600 Result Diagrams: 05/10/20 13:12 05/10/20 13:12 Additional Labs: Accuchecks 05/10/20 05/10/20 05/10/20 17:05 12:25 05:58 POC Glucose 273 H 301 H 333 H 05/09/20 05/09/20 23:35 20:49 POC Glucose 313 H 387 H Hospitalist ROS - Review of Systems Constitutional: denies: fever, chills - Medication Medications: Active Medications Generic Name Dose Route Start Last Admin Trade Name Freq PRN Reason Stop Dose Admin Heparin Sodium (Porcine) 5,000 units 05/10/20 09:00 05/10/20 15:08 Heparin 5,000 Units/Ml Vial SC 5,000 units TID JOSÉ Administration Piperacillin Sod/Tazobactam 100 mls @ 200 mls/hr 05/10/20 12:00 05/10/20 12:47 Sod 3.375 gm/ Sodium Chloride IVPB 100 mls Q6HR JOSÉ Administration Metoprolol Tartrate 5 mg 05/09/20 21:36 05/10/20 12:45 Metoprolol Tartrate 5 Mg/5 Ml Vial IVP 5 mg Q6H PRN Administration SBP > 140 Morphine Sulfate 2 mg 05/09/20 23:42 05/10/20 12:40 Morphine 4 Mg/Ml Vial SLOW IVP 2 mg Q2H PRN Administration Pain Ondansetron HCl 4 mg 05/09/20 21:16 05/10/20 12:41 Ondansetron Pf 4 Mg/2 Ml Vial IVP 4 mg Q6H PRN Administration Nausea/Vomiting Pantoprazole Sodium 40 mg 05/10/20 09:00 05/10/20 08:05 Pantoprazole 40 Mg Vial IVP 40 mg Q12HR JOSÉ Administration - Exam General Appearance: NAD, awake alert General - other findings: very tearful in severe pain Eye: PERRL, anicteric sclera ENT: normocephalic atraumatic, no oropharyngeal lesions Neck: no JVD Heart: RRR, no murmur, no gallops, no rubs Respiratory: CTAB, no wheezes, no rales, no ronchi Gastrointestinal: non-distended, normal bowel sounds Gastrointestinal - other findings: diffusely tender Extremities: no cyanosis, no clubbing, no edema Skin: normal turgor, no lesions, no rashes Neurological: cranial nerve grossly intact, normal sensation to touch, no focal deficits, no new deficit Musculoskeletal: normal tone, normal strength, no muscle wasting Hosp A/P - Plan Chest Xray: right lung nodule CT abdomen/chest: RUL mass. Hypodense cystic lesion in the body of the pancreas measuring 8 mm. Right adrenal nodule This is a 65 year old female with diabetes who presented to the hospital with abdominal pain, nausea, vomiting after starting victoza DKA - patient had blood sugar 370 with corrected anion gap of 17.5, elevated BHB which is worsening, bicarb 19 and unable to tolerate oral intake - she had no significant improvement with 15 lantus, and BHB worsening, so start on insulin drip and DKA protocol, transfer to [facility] Sepsis secondary to Klebsiella bacteremia and Klebsiella/Enterobacter UTI -WBC 14.1, tachycardic was started on IV ceftriaxone, switch to IV zosyn pending cultures Abdominal pain - likely secondary to UTI and DKA - treatment as mentioned above. ALP is 133, CT abdomen shows surgically absent gallbladder so hold off on ultrasound given normal bilirubin - morphine prn for pain RUL mass spiculated - noted on chest CT. Pulmonary and oncology has been consulted . Likely needs outpatient PET - quantiferon gold test ordered Hypokalemia - potassium 3.3, will replace with potassium Macrocytic anemia - HB 9.9, check folate/B12 tomorrow. Check TSh in the morning Dispo: transfer to [facility]
[2020-05-10] MEDS ORDERED: hydrALAZINE 20 MG/ML VIAL SLOW IVP PRN (17:29)
[2020-05-10] MEDS ORDERED: cefTRIAXone\\ROCEPHIN 1 GM in Sodium Chloride 0.9% 100 ML IVPB SCH (19:00)
[2020-05-10] MEDS: D5 1/2 NS w/20 mEq KCL 1,000 ML IV PRN (20:59)
[2020-05-10] MEDS ORDERED: Insulin Glargine 20 UNITS in Pre-Filled Syringe 1 EACH SC SCH (21:00)
[2020-05-11] MEDS: D5 1/2 NS w/20 mEq KCL 1,000 ML IV PRN ×4 (01:26→11:23)
[2020-05-11 04:16] LABS: Hemoglobin 9.7 g/dL (12.0-16.0); Mean Corpuscular HGB CONC 32.7 g/dL (32.0-36.0); Mean Corpuscular Hemoglobin 26.4 pg (27.0-31.0); Mean Corpuscular Volume 80.8 fL (78.0-98.0); Mean Platelet Volume 9.4 fL (7.4-10.4); Platelet Count 174 thou/uL (130-400); RBC Distribution Width 15.3 % (11.5-14.5); Red Blood Cell (RBC) Count 3.66 mill/uL (4.20-5.40); White Blood Cell (WBC) Count 12.8 thou/uL (4.8-10.8)
[2020-05-11 04:35] LABS: ALT (SGPT) 9 U/L (8-55); AST (SGOT) 11 U/L (5-34); Albumin 2.4 g/dL (3.4-4.8); Alkaline Phosphatase 113 U/L (40-110); Anion Gap 12 mmol/L (10-20); BUN (Urea Nitrogen) 19 mg/dL (9.8-20.1); Bilirubin, Total 0.3 mg/dL (0.2-1.2); Calc. Creatinine Clearance 90 mL/min (70-130); Calcium 7.7 mg/dL (7.8-10.44); Carbon Dioxide 22 mmol/L (23-31); Chloride 103 mmol/L (98-107); Globulin 3.4 g/dL (2.4-3.5); Glucose 193 mg/dL (80-115); Potassium 3.2 mmol/L (3.5-5.1); Protein, Total 5.8 g/dL (6.0-8.3); Sodium 134 mmol/L (136-145)
[2020-05-11] MEDS: Piperacillin/Tazobactam 3.375 GM in Sodium Chloride 0.9% 100 ML IVPB SCH ×3 (05:32→17:20)
[2020-05-11] MEDS: Morphine 4 MG/ML VIAL SLOW IVP PRN ×5 (05:50→23:32)
[2020-05-11] MEDS: Ondansetron PF 4 MG/2 ML Vial IVP PRN ×2 (05:50→11:22)
[2020-05-11] MEDS: Pantoprazole 40 MG VIAL IVP SCH ×2 (09:10→20:39)
[2020-05-11] MEDS: Heparin 5,000 UNITS/ML VIAL SC SCH ×3 (09:10→20:39)
--- NOTE | 2020-05-11 09:35 | PDOC.HOSPP ---
- Subjective Encounter Date: 05/11/20 Encounter Time: 09:34 Subjective: F/u: DKA THe patient appears to be sleeping comfortably but when she wakes up reports persistent abdominal pain. She refuses to take any liquid per nursing. No episode of emesis Her abd pain has improved some. No cough or shortness of breath. At times, she seems to be exaggerating her pain some ?? - Objective Vital Signs & Weight: Vital Signs (12 hours) Temp Pulse Ox 05/11/20 08:00 100 05/11/20 07:39 97.4 F L 05/11/20 04:13 97.2 F L 05/11/20 00:15 97.2 F L Weight Admit Weight 160 lb 4.8 oz Weight 160 lb 4.8 oz Most Recent Monitor Data Heart Rate from ECG 85 NIBP 142/87 NIBP BP-Mean 105 Respiration from ECG 13 SpO2 99 I&O: 05/10/20 05/11/20 05/12/20 06:59 06:59 06:59 Intake Total 3567 Output Total 600 975 Balance -600 2592 Result Diagrams: 05/11/20 03:55 05/11/20 03:55 Additional Labs: Accuchecks 05/11/20 05/11/20 05/11/20 08:44 07:08 05:35 POC Glucose 191 H 171 H 133 H 05/11/20 05/11/20 05/10/20 03:56 01:29 23:36 POC Glucose 171 H 233 H 238 H 05/10/20 05/10/20 05/10/20 22:12 20:11 19:11 POC Glucose 251 H 296 H 299 H 05/10/20 05/10/20 05/10/20 18:05 17:05 12:25 POC Glucose 323 H 273 H 301 H Hospitalist ROS - Review of Systems Constitutional: denies: fever, chills - Medication Medications: Active Medications Generic Name Dose Route Start Last Admin Trade Name Freq PRN Reason Stop Dose Admin Heparin Sodium (Porcine) 5,000 units 05/10/20 09:00 05/11/20 09:10 Heparin 5,000 Units/Ml Vial SC 5,000 units TID JOSÉ Administration Piperacillin Sod/Tazobactam 100 mls @ 200 mls/hr 05/10/20 12:00 05/11/20 05:32 Sod 3.375 gm/ Sodium Chloride IVPB 100 mls Q6HR JOSÉ Administration Insulin Human Regular 100 101 mls @ 0 mls/hr 05/10/20 16:45 05/11/20 05:32 units/ Sodium Chloride IVPB 101 mls INF JOSÉ Administration Protocol As Directed Potassium Chloride/Dextrose/Sod Cl 1,000 mls @ 250 mls/hr 05/10/20 16:45 05/11/20 09:15 D5 1/2 Ns W/20 Meq Kcl IV 1,000 mls INF PRN Administration STEP 4: DKA PROTOCOL Protocol Metoprolol Tartrate 5 mg 05/09/20 21:36 05/10/20 12:45 Metoprolol Tartrate 5 Mg/5 Ml Vial IVP 5 mg Q6H PRN Administration SBP > 140 Morphine Sulfate 2 mg 05/09/20 23:42 05/11/20 09:08 Morphine 4 Mg/Ml Vial SLOW IVP 2 mg Q2H PRN Administration Pain Ondansetron HCl 4 mg 05/09/20 21:16 05/11/20 05:50 Ondansetron Pf 4 Mg/2 Ml Vial IVP 4 mg Q6H PRN Administration Nausea/Vomiting Pantoprazole Sodium 40 mg 05/10/20 09:00 05/11/20 09:10 Pantoprazole 40 Mg Vial IVP 40 mg Q12HR JOSÉ Administration - Exam General Appearance: NAD, awake alert Eye: PERRL, anicteric sclera ENT: normocephalic atraumatic, no oropharyngeal lesions Neck: no JVD Heart: RRR, no murmur, no gallops, no rubs Respiratory: CTAB, no wheezes, no rales, no ronchi Gastrointestinal - other findings: diffuse mild tenderness Extremities: no cyanosis, no clubbing, no edema Skin: normal turgor, no lesions, no rashes Neurological: cranial nerve grossly intact, normal sensation to touch, no weakness Musculoskeletal: normal tone, normal strength, no muscle wasting Hosp A/P - Plan Chest Xray: right lung nodule CT abdomen/chest: RUL mass. Hypodense cystic lesion in the body of the pancreas measuring 8 mm. Right adrenal nodule This is a 65 year old female with diabetes who presented to the hospital with abdominal pain, nausea, vomiting after starting victoza DKA - patient had blood sugar 370 with corrected anion gap of 17.5, elevated 2.5. Started on insulin drip. Repeat Beta hydroxybutyrate normal and anion gap normal - will start lantus 8 units, patient did have one sip of juice - currently she is still not eating adequately Sepsis secondary to Klebsiella bacteremia and Klebsiella/Enterobacter UTI -WBC improving to 12. Continue IV zosyn Abdominal pain - possibly pyelonephritis vs dehydration - DKA has appeared to resolve, but still has persistent pain. Lactic acid 2.3. Administer another bolus. Per radiology, last CT scan showed patent vessels in the abdomen - will obtain GI consult . Continue protonix. Trial of clear liquids as tolerated RUL mass spiculated - noted on chest CT. Pulmonary and oncology has been consulted . Likely needs outpatient PET - quantiferon gold test ordered Possible splenic metastases - noted on CT scan and discussed with radiology. Needs outpatient PET scan Pancreatic cyst - 8 mm, most likely benign, outpatient follow up Hypokalemia - potassium 3.2, will replace with potassium Macrocytic anemia - HB 9.9, B12 normal, folate pending, TSH okay
[2020-05-11] MEDS ORDERED: Potassium Chloride 20 MEQ in Premix Bag 1 BAG IVPB SCH (09:45)
[2020-05-11 10:06] LABS: Lactic Acid 2.3 mmol/L (0.5-2.2)
--- NOTE | 2020-05-11 11:08 | PRG ---
DATE OF SERVICE: 05/11/2020 SUBJECTIVE: Seems to be a little better today. Still, on an insulin drip. OBJECTIVE: VITAL SIGNS: Temperature 97.4, pulse 82, and blood pressure 139/82. HEENT: Unremarkable. NECK: No adenopathy or JVD. CHEST: Fairly clear. CARDIAC: S1, S2. Regular. ABDOMEN: Soft. EXTREMITIES: No edema. LABORATORY DATA: White blood cell count 12.8, hematocrit 29.6, and platelet count 174. Sodium 134, potassium 3.2, chloride 103, CO2 of 22, anion gap down to 9, BUN 19, creatinine 0.7, and glucose 193. ASSESSMENT: 1. Likely resolved diabetic ketoacidosis. 2. Right upper lobe nodule versus mass versus infiltrate. PLAN: As per my note yesterday, she will need an outpatient PET scan in 3 to 4 weeks. Her blood sugar needs to be adequately controlled before the PET scan. Job ID: [id number]
[2020-05-11] MEDS: 1/2 NS w/KCL 20 mEq 1,000 ML IV SCH ×2 (12:39→22:17)
[2020-05-11] MEDS ORDERED: Insulin Glargine 8 UNITS in Pre-Filled Syringe 1 EACH SC SCH (13:00)
[2020-05-11] MEDS ORDERED: Sodium Chloride 0.9% 500 ML IV SCH (13:00)
[2020-05-11 14:59] LABS: Base Excess-Venous 1.3 mmol/L (-2.0 to 3.0); Bicarbonate (HCO3v) 26.9 mmol/L (22.0-28.0); CO2 Tension (PvCO2) 46.1 mmHg (40.0-50.0); Calcium, Ionized 1.04 mmol/L (1.15-1.33); Chloride 90 mmol/L (98-107); Potassium 2.6 mmol/L (3.5-5.1); Sodium 129 mmol/L (138-145); T. Carbon Dioxide 28.3 mmol/L (22.0-28.0); vO2 Saturation-calc 68.3 % (60.0-85.0)
[2020-05-11 18:24] LABS: Anion Gap 12 mmol/L (10-20); BUN (Urea Nitrogen) 13 mg/dL (9.8-20.1); Calc. Creatinine Clearance 88 mL/min (70-130); Calcium 7.6 mg/dL (7.8-10.44); Carbon Dioxide 22 mmol/L (23-31); Chloride 103 mmol/L (98-107); Glucose 222 mg/dL (80-115); Potassium 4.1 mmol/L (3.5-5.1); Sodium 133 mmol/L (136-145)
--- NOTE | 2020-05-11 22:55 | CON ---
DATE OF CONSULTATION: REASON FOR CONSULTATION: Right upper lobe lung mass. HISTORY OF PRESENT ILLNESS: This is a 65-year-old female, admitted on 05/10/20 with nausea, abdominal pain, and malaise. She was found to be in mild diabetic ketoacidosis. She had a CT scan of chest, abdomen and pelvis showing 2 cm mass in right upper lobe along the horizontal fissure, raising the possibility of a neoplastic process. Additionally, there was 8 mm cystic lesion in the body of pancreas and 1.4 cm nodule in the right adrenal gland. The patient's current complaint still is abdominal pain for which she was given morphine today. She admits of weight loss. She denies of cough or hemoptysis. PAST HISTORY: Type 2 diabetes, GERD, dyslipidemia, and hypertension. PAST SURGICAL HISTORY: Cholecystectomy. PERSONAL, FAMILY, AND SOCIAL HISTORY: The patient is a never smoker and does not drink. REVIEW OF THE SYSTEMS: Ten-point system review was done and was negative except for the findings mentioned in the History of Present Illness. PHYSICAL EXAMINATION: GENERAL: The patient is alert and oriented. HEENT: Unremarkable. LYMPHATIC: Lymph nodes not palpable in cervical, supraclavicular, axillary, or inguinal area. CHEST: Clear to percussion and auscultation. HEART: Regular rhythm. S1, S2. ABDOMEN: Soft. No hepatosplenomegaly. BREASTS: Without masses or nipple retraction. EXTREMITIES: Without pedal edema. LAB: CBC shows WBC 11.2, hemoglobin 10.3, platelets 162,000. Differential shows 83% neutrophils, 13 bands, 2 lymphs, 2 monos. Chemistry profile showed serum potassium of 3.2, normal BUN and creatinine. Glucose elevated. Calcium 7.7, albumin 2.4. B12 of 6.1. ASSESSMENT AND RECOMMENDATION: The right upper lobe nodule is suggestive of a neoplastic process. I talked to Dr. Spence, who did not think that this lesion is suitable for transthoracic biopsy because of proximity to blood vessels. For now, I have asked the patient to call my office and make appointment to see me in first part of May. She might be a candidate for navigational bronchoscopic biopsy. The patient is anemic with hemoglobin between 9 and 10 g. We will also initiate workup for anemia. Thanks very much for allowing me to participate in this patient's care. Job ID: [id number] [facility]
[2020-05-11 23:26] LABS: Lactic Acid 1.9 mmol/L (0.5-2.2)
[2020-05-11 23:31] LABS: Anion Gap 12 mmol/L (10-20); BUN (Urea Nitrogen) 12 mg/dL (9.8-20.1); Calc. Creatinine Clearance 94 mL/min (70-130); Calcium 7.4 mg/dL (7.8-10.44); Carbon Dioxide 21 mmol/L (23-31); Chloride 104 mmol/L (98-107); Glucose 194 mg/dL (80-115); Iron 37 ug/dL (50-170); Iron Binding Capacity, Total 168 mcg/dL (265-497); Sodium 133 mmol/L (136-145)
[2020-05-12] MEDS: Piperacillin/Tazobactam 3.375 GM in Sodium Chloride 0.9% 100 ML IVPB SCH ×3 (00:25→12:50)
[2020-05-12 04:19] LABS: Anion Gap 10 mmol/L (10-20); BUN (Urea Nitrogen) 12 mg/dL (9.8-20.1); Calc. Creatinine Clearance 96 mL/min (70-130); Calcium 7.7 mg/dL (7.8-10.44); Carbon Dioxide 23 mmol/L (23-31); Chloride 104 mmol/L (98-107); Glucose 183 mg/dL (80-115); Potassium 4.1 mmol/L (3.5-5.1); Sodium 133 mmol/L (136-145)
[2020-05-12] MEDS: Morphine 4 MG/ML VIAL SLOW IVP PRN (05:39)
[2020-05-12] MEDS: Ondansetron PF 4 MG/2 ML Vial IVP PRN (05:39)
--- NOTE | 2020-05-12 05:46 | CON ---
DATE OF CONSULTATION: 05/11/2020 REASON FOR CONSULTATION: Abdominal pain, nausea, and vomiting. HISTORY OF PRESENT ILLNESS: Ms. Clara Olson is a very pleasant 65-year-old female, admitted to hospital with abdominal pain, nausea, and vomiting over the last 3 days. Since admission, the patient has had abdominal CAT scan and chest CAT scan. The chest CAT scan showed a right upper lobe lesion and was seen by Dr. Johnathan Gibson. Abdominal CAT scan done shows a cystic lesion in the pancreatic body. The patient is known to have diabetes mellitus type 2. She was recently started on Victoza injection. The patient had abdominal pain, nausea, vomiting for a few days before she started taking Victoza. The symptoms got worse after starting Victoza. The patient is unable to keep anything down nausea and vomiting. Abdominal pain varies from anywhere from 5 to 10 on a scale of 1 to 10. She has been getting pain relief. The patient also complained of heartburn off and on, but her symptoms actually worse over last few days since starting Victoza. The patient had seen Dr. Yonatan Linton in the past. She had an EGD and a colonoscopy in the past. She does not know the results. Apparently, an EGD was done for the same reason for abdominal pain, nausea, and vomiting. I could not find any access for the operative report in the [facility]. I believe it was probably done at [facility]. At the present time, she has had morphine and she is actually feeling better. Her nausea is also better today. However, she is not eating very well. Poor appetite. She had some liquids today. The patient has no history of diarrhea. No history of fever or chills. No history of hematochezia or any melena. She also has UTI and on antibiotics at the present time. She denies any dysphagia or odynophagia. No chest pain, dyspnea, orthopnea, or PND, etc. She had no other relevant history. ALLERGIES: IODINE. SOCIAL HISTORY: . She does not smoke or drink alcohol. MEDICAL ILLNESS: 1. Type 2 diabetes mellitus. 2. Status post cholecystectomy in the past. 3. Hyperlipidemia. 4. Chronic acid reflux. 5. Hypertension. SURGERIES: 1. Laparoscopic cholecystectomy. 2. Umbilical hernia repair in the past. FAMILY HISTORY: Strong family history of diabetes and hypertension. Both parents and siblings had diabetes and hypertension. No family history of stroke. No family history of any heart disease. Two cousins, one had throat cancer and another had stomach cancer. Both are . Apparently, this happened this year. MEDICATIONS: List reviewed. SYSTEM REVIEW: 10-point system review. CONSTITUTIONAL: No history of any chronic headache. No TIA. No syncope. HEENT: Head; no chronic headache. Eyes; no diplopia. No impaired vision. Ears; no hearing loss. Nose; no nosebleed. Throat; no sore throat. No dysphagia. NECK: No neck stiffness or any limitation of movement. BREASTS: No breast masses. LUNGS: No chronic coughing, hemoptysis, dyspnea, or fever. CARDIOVASCULAR SYSTEM: No chest pain. No palpitation. No dyspnea, orthopnea, or PND. GI: Abdominal pain, nausea, and vomiting. History of chronic reflux. : No dysuria, but she has history of frequency of urination. No hematuria. NEUROMUSCULAR: Unremarkable. PSYCHIATRY: Unremarkable. PHYSICAL EXAMINATION: GENERAL: Appears comfortable at the present time, but she has received some pain medicine before I went to see her. VITAL SIGNS: She was febrile on admission, but today she is afebrile. Today temperature has come down degrees Fahrenheit, pulse is 76, blood pressure is 160/70. HEENT: Conjunctivae are clear. NECK: Supple. No adenitis or thyromegaly noted. CARDIOVASCULAR SYSTEM: Normal heart sounds. LUNGS: Clear to auscultation. ABDOMEN: Soft. Abdomen is nondistended. Abdomen is minimally tender over the epigastric area on deep palpation. There is no rebound or guarding. No organomegaly. No masses. Bowel sounds are normal. EXTREMITIES: Reveal no edema. LABORATORY DATA: Showed WBC of 11,200, hemoglobin 10.3, platelet count 162,000, bands 13%, neutrophils 63%. Sodium 128, potassium 2.6, chloride normal, bicarb 24, alkaline phosphatase 138, AST is less than 7. TSH is high. Urinalysis shows positive nitrites, positive leukocyte esterase. Abdominal CAT scan showed a cystic lesion in the body of the pancreas. Chest CAT scan shows right upper lobe mass and was seen by Pulmonary Medicine. IMPRESSION: 1. Abdominal pain, nausea, vomiting over the last several days, worse after starting Victoza. The patient's symptoms very well could be due to Victoza. The patient has already received pain medication. 2. Urinary tract infection. 3. Previous cholecystectomy. 4. Previous hernia repair. 5. Diabetes mellitus. 6. Hyperlipidemia. 7. Hypertension. RECOMMENDATIONS: Continue pain medications as before. We will encourage the patient to drink as much as she can. The patient has seen Dr. Yonatan Linton in the past and I want partners to see her tomorrow. In the meantime, would recommend continued supportive care and symptomatic treatment. Job ID: [id number]
[2020-05-12 09:20] LABS: Hemoglobin 10.2 g/dL (12.0-16.0); Mean Corpuscular HGB CONC 32.3 g/dL (32.0-36.0); Mean Corpuscular Volume 80.7 fL (78.0-98.0); Mean Platelet Volume 10.5 fL (7.4-10.4); Platelet Count 204 thou/uL (130-400); RBC Distribution Width 15.8 % (11.5-14.5); Red Blood Cell (RBC) Count 3.92 mill/uL (4.20-5.40); White Blood Cell (WBC) Count 9.2 thou/uL (4.8-10.8)
[2020-05-12] MEDS: 1/2 NS w/KCL 20 mEq 1,000 ML IV SCH (09:32)
[2020-05-12] MEDS: Pantoprazole 40 MG VIAL IVP SCH ×2 (09:33→20:51)
[2020-05-12] MEDS: Heparin 5,000 UNITS/ML VIAL SC SCH ×3 (09:33→20:51)
--- NOTE | 2020-05-12 14:03 | PDOC.HOSPP ---
- Subjective Encounter Date: 05/12/20 Encounter Time: 12:00 Subjective: F/u: abdominal pain The patient states her pain has significantly improved and has only mild pain today. She is just drinking some clear liquid/broth but still has a diminished appetite. No nausea or vomiting She has had no bowel movement yet - Objective Vital Signs & Weight: Vital Signs (12 hours) Temp Pulse Ox 05/12/20 11:22 98.4 F 05/12/20 07:36 98 05/12/20 07:29 98.0 F 05/12/20 03:35 98.7 F Weight Admit Weight 160 lb 4.8 oz Weight 160 lb 4.8 oz Most Recent Monitor Data Heart Rate from ECG 78 NIBP 151/78 NIBP BP-Mean 102 Respiration from ECG 14 SpO2 100 I&O: 05/11/20 05/12/20 05/13/20 06:59 06:59 06:59 Intake Total 3567 3067 Output Total 975 850 Balance 2592 2217 Result Diagrams: 05/12/20 09:08 05/12/20 03:37 Additional Labs: Accuchecks 05/12/20 05/12/20 05/11/20 12:47 05:25 20:31 POC Glucose 243 H 179 H 217 H 05/11/20 05/11/20 05/10/20 17:03 16:49 21:13 POC Glucose 192 H 159 H 262 H Hospitalist ROS - Review of Systems Constitutional: denies: fever, chills - Medication Medications: Active Medications Generic Name Dose Route Start Last Admin Trade Name Freq PRN Reason Stop Dose Admin Heparin Sodium (Porcine) 5,000 units 05/10/20 09:00 05/12/20 09:33 Heparin 5,000 Units/Ml Vial SC 5,000 units TID JOSÉ Administration Metoprolol Tartrate 5 mg 05/09/20 21:36 05/10/20 12:45 Metoprolol Tartrate 5 Mg/5 Ml Vial IVP 5 mg Q6H PRN Administration SBP > 140 Morphine Sulfate 2 mg 05/09/20 23:42 05/12/20 05:39 Morphine 4 Mg/Ml Vial SLOW IVP 2 mg Q2H PRN Administration Pain Ondansetron HCl 4 mg 05/09/20 21:16 05/12/20 05:39 Ondansetron Pf 4 Mg/2 Ml Vial IVP 4 mg Q6H PRN Administration Nausea/Vomiting Pantoprazole Sodium 40 mg 05/10/20 09:00 05/12/20 09:33 Pantoprazole 40 Mg Vial IVP 40 mg Q12HR JOSÉ Administration - Exam General Appearance: NAD, awake alert Eye: PERRL, anicteric sclera ENT: normocephalic atraumatic, no oropharyngeal lesions Neck: no JVD Heart: RRR, no murmur, no gallops, no rubs Respiratory: CTAB, no wheezes, no rales, no ronchi Gastrointestinal: soft, non-tender, non-distended, normal bowel sounds Extremities: no cyanosis, no clubbing, no edema Skin: normal turgor, no lesions, no rashes Neurological: cranial nerve grossly intact, normal sensation to touch, no weakness Hosp A/P - Plan Chest Xray: right lung nodule CT abdomen/chest: RUL mass. Hypodense cystic lesion in the body of the pancreas measuring 8 mm. Right adrenal nodule This is a 65 year old female with diabetes who presented to the hospital with abdominal pain, nausea, vomiting after starting victoza DKA- resolved - off insulin drip and started on clear liquid diet She will be started on lantus 8 units daily. She was only on sliding scale at home - will advance diet to full liquid diet Abdominal pain - possibly DKA versus pyelonephritis? - pain is better today. GI was consulted and they are getting records of patient's last EGD and colonoscopy Sepsis secondary to Klebsiella bacteremia and Klebsiella/Enterobacter UTI -WBC is 9.2. Switch IV zosyn to oral augmentin RUL mass spiculated - noted on chest CT. Pulmonary and oncology has been consulted . Likely needs outpatient PET. Oncology feels she needs to be evaluated in the outpatient setting for consideration of transbronchial biopsy Possible splenic metastases - noted on CT scan and discussed with radiology. Needs outpatient PET scan Pancreatic cyst - 8 mm, most likely benign, outpatient follow up Macrocytic anemia - HB 9.9, B12 normal, folate pending, TSH okay Dispo: transfer to medical floor
[2020-05-12] MEDS ORDERED: Insulin Glargine 8 UNITS in Pre-Filled Syringe 1 EACH SC SCH (14:15)
--- NOTE | 2020-05-12 14:41 | PRG ---
DATE OF SERVICE: 05/12/2020 SUBJECTIVE: Ms. Olson is doing better. She has somewhat of an appetite returned. She is in much less pain in her stomach now had no bleeding. It turns out she had DKA. She has been seen in our office multiple times in the past for abdominal pain. She had been seen initially by Dr. Linton in 2016 showed upper and lower endoscopies. There were few polyps at that time with normal EGD. She ultimately had a CT with questionable splenic lesion and had hemangioma discovered on MRI. She also in 2019 had a gastric emptying scan that showed gastroparesis. She has had no melena, hematochezia, or hematemesis. She has no fever or chills. PRESENT MEDICATIONS: 1. Augmentin. 2. . 3. Hydralazine. 4. Metoprolol. 5. Morphine. 6. Zofran. 7. Protonix. 8. Phenergan. 9. She received some IV insulin, was offered insulin drip. PHYSICAL EXAMINATION: GENERAL: The patient is resting comfortably in bed. VITAL SIGNS: Temperature 97.2. She has been afebrile since admission. Blood pressure is 151/78, pulse of 78. LUNGS: Are clear heart is regular abdomen is. ABDOMEN: Soft and nontender. There is no rebound or guarding. EXTREMITIES: There is no clubbing, cyanosis, or edema. LABORATORY DATA: White count 9.3, hemoglobin 10.3, platelet count 204. to admission labs, hemoglobin was 12 to 14 back in 2019. Sodium 133, potassium 4.1, BUN and creatinine 12/0.65. Iron low at 37, TIBC low at 168, saturation 22, ferritin 147, B12 of 601. Liver functions normal except for alkaline phosphatase 133 on admission. Hemoglobin A1c not checked since 2017. Influenza SARS negative on this admission. ASSESSMENT: 1. Diabetic ketoacidosis, resolved. 2. Epigastric pain with nausea and vomiting likely diabetic ketoacidosis, resolved. 3. Mild chronic anemia of chronic disease with normal folate, B12 and iron stores consistent with anemia of chronic disease. 4. 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 Otherwise, negative MRI of the abdomen in 2016. Upper and lower endoscopies were normal then except for polyps. 5. Prior history of colon polyps. 6. Gastroparesis documented on gastric emptying scan recently. 7. Imaging here concerning for a mass in the right upper lung is going to need to be biopsied. Oncology is looking further into that. 8. A CT scan this admission showed lung lesion with 8 mm hyperdense cystic lesion in the body of the pancreas. RECOMMENDATIONS: 1. Agree with PPI. 2. If the patient has recurrent nausea and vomiting, Reglan. 3. We will hold off on endoscopy for now, but if symptoms return, can consider repeating that. 4. As far as prior history of colon polyps. She will be due for a followup next year. The patient admits she has had H pylori gastritis in the past, which was treated and again if the patient's nausea and vomiting returns, we can consider upper endoscopy this admission, but it seems this was related to acute exacerbation of her gastroparesis in the setting of DKA. We will follow along with you. Job ID: [id number]
[2020-05-12] MEDS: HumaLOG 300 UNITS/3 ML VIAL SC PRN ×2 (16:48→21:03)
[2020-05-12] MEDS: Amoxicillin/Potassium Clav 875 MG TAB PO SCH (20:51)
[2020-05-13 06:08] LABS: Hemoglobin 9.3 g/dL (12.0-16.0); Mean Corpuscular HGB CONC 32.5 g/dL (32.0-36.0); Mean Corpuscular Hemoglobin 25.8 pg (27.0-31.0); Mean Corpuscular Volume 79.4 fL (78.0-98.0); Mean Platelet Volume 8.9 fL (7.4-10.4); Platelet Count 158 thou/uL (130-400); RBC Distribution Width 15.3 % (11.5-14.5); White Blood Cell (WBC) Count 6.8 thou/uL (4.8-10.8)
[2020-05-13 06:28] LABS: Anion Gap 9 mmol/L (10-20); BUN (Urea Nitrogen) 5 mg/dL (9.8-20.1); Calc. Creatinine Clearance 110 mL/min (70-130); Calcium 7.6 mg/dL (7.8-10.44); Carbon Dioxide 27 mmol/L (23-31); Chloride 102 mmol/L (98-107); Glucose 176 mg/dL (80-115); Potassium 3.6 mmol/L (3.5-5.1); Sodium 134 mmol/L (136-145)
[2020-05-13] MEDS: Amoxicillin/Potassium Clav 875 MG TAB PO SCH (09:05)
[2020-05-13] MEDS: Heparin 5,000 UNITS/ML VIAL SC SCH ×2 (09:05→15:58)
[2020-05-13] MEDS: Pantoprazole 40 MG VIAL IVP SCH (10:18)
[2020-05-13] MEDS ORDERED: Lisinopril 20 MG TAB PO SCH ×2 (12:30→21:00)
[2020-05-13] MEDS: HumaLOG 300 UNITS/3 ML VIAL SC PRN ×2 (13:17→16:24)
--- NOTE | 2020-05-13 15:38 | PRG ---
DATE OF SERVICE: 05/13/2020 SUBJECTIVE: The patient feels fine without complaint. She tolerated lunch without nausea or vomiting. She denies having abdominal pain. PHYSICAL EXAMINATION: VITAL SIGNS: Temperature is 98.3, blood pressure 163/90, pulse of 87. GENERAL: She is alert without distress. HEENT: Shows anicteric sclerae. CV: Shows normal S1 and S2. Regular rate and rhythm. CHEST: Shows a breath sounds. ABDOMEN: Soft, mildly protuberant, but nontender. No distention. No tympany. She has active bowel sounds. EXTREMITIES: Show no edema. LABORATORY DATA: Electrolytes within normal range. CO2 of 27, creatinine 0.57, BUN of 5. WBC 6.8, hemoglobin 9.3, and platelet count of 158. ASSESSMENT: 1. Admitting symptoms of epigastric pain, nausea and vomiting have completely resolved. The symptoms are most likely related to her DKA, which has since resolved. 2. Anemia of chronic disease. 3. Gastroparesis. 4. Right upper lung mass. 5. Pancreatic cyst on CT. PLAN: 1. The patient can be discharged from GI standpoint. 2. Outpatient followup in GI clinic in 2 to 3 months. Given the size of the cystic lesion in the pancreas, less than a cm, the patient would likely not need any evaluation other than followup CT or MRCP in one year. 3. GI will sign off for now, please call if needed. Job ID: [id number] MTDD
[2020-05-13 16:57] VITALS: BP 137/84; TEMP 98.1
--- NOTE | 2020-05-13 17:14 | PDOC.DS.DS ---
Provider - Provider Date of Admission: 05/09/20 19:49 Date of Discharge: 05/13/20 Admitting Provider: Chalo Marroquin DO Consultations: Gastroentrology (Dr. Ascencio), Oncology (Dr. Michelle Lassiter), Pulmonary (Dr. Johnathan Gibson) Primary Care Physician: [facility] Hospital Course - Hospital Course Hospital Course: Discharge Diagnoses: 1.Sepsis secondary to Klebsiella bacteremia/pyelonephritis 2. DKA 3. Abdominal pain likelyfrom DKA 4. History of colon polyps 5. Folate deficiency anemia 6. Hyponatremia 7. Pancreatic cystic lesion 8. Splenic lesion - possibly metastases Brief HPI: This 59-year-old female presented to the emergency room with a blood sugar of 500 and feeling sick since yesterday. She also had some abdominal pain, nausea or vomiting. Patient was recently started on Victoza for her diabetes. She did have a UA that was turbid with 500 leukocyte esterase and 2+ nitrite. White blood cell count was 14.1 temp was 100.1. She was admitted for possible pyelonephritis, given IV ceftriaxone and admitted for further work-up. Hospital Course: Sepsis secondary to Klebsiella bacteremia/pyelonephritis: Patient's cultures on 05/09 tested positive for Klebsiella pneumonia. Urine cultures also grew Klebsiella pneumonia. The patient was initially started on IV Zosyn. She was eventually switched to oral Augmentin when she was able to tolerate a regular diet. She will be discharged with 10 more days of Augmentin to complete a 14- day course of antibiotics. #DKA #Abdominal pain: The patient had a blood sugar over 300 with a bicarb of 19 and a hydroxybutyrate of 1.98. She was started on Lantus 15 units, but the following morning her blood sugar increased and her beta hydroxybutyrate increased further to 2.55. She was transferred to the [facility] and started on an insulin drip. Her DKA resolved, but she did have some persistent abdominal pain and a diminished appetite, therefore GI was consulted. zdhortly afterwards, her abdominal pain improved, so GI decided to hold off on endoscopy. She was started on Lantus 8 units subcutaneous nightly. Her blood sugars were adequately controlled with this. She will be discharged with Lantus and a sliding scale. Her Victoza will be discontinued. RUL spiculated mass: This was noted on her CT scan of the chest. Oncology was consulted and recommended following up in May for possible transbronchial breast biopsy. Pulmonary was consulted performed QuantiFERON gold test which is pending. CT also showed a possible splenic metastases. The patient needs an outpatient PET scan. Folic acid deficiency anemia: Patient had hemoglobin 9.3 and MCV 79.4. Vitamin B12 was 601. Folate level was low at 5. TSH was 4.17 but free T4 was normal. The patient was discharged with folic acid supplementation. Ferritin level was normal. Hypertension: the patient's blood pressure increased to 166 and she was resumed on her home lisinopril 20 mg bid on discharge. Pertinent Studies: CT chest/abdomen/pelvis 05/09: Right upper lobe mass worrisome for neoplastic process. PET CT scan is recommended. Small hypodense cystic lesion in the body of the pancreas measuring 8 mm. Right adrenal nodule. Chest Xray 05/09: Nodular density in the right midlung. - Labs Lab Results: 05/13/20 05:50 05/13/20 05:50 Abnormal Lab Results - Last 48 hrs 05/11/20 03:55: Folate 6.30 L 05/11/20 17:55: Sodium 133 L, Carbon Dioxide 22 L, Calcium 7.6 L 05/11/20 23:00: Folate 5.10 L 05/11/20 23:01: Sodium 133 L, Carbon Dioxide 21 L, Calcium 7.4 L, Iron 37 L, TIBC 168 L 05/12/20 03:37: Sodium 133 L, Calcium 7.7 L 05/12/20 09:08: RBC 3.92 L, Hgb 10.2 L, Hct 31.6 L, MCH 26.0 L, RDW 15.8 H, MPV 10.5 H 05/13/20 05:50: Sodium 134 L, Anion Gap 9 L, BUN 5 L, Creatinine 0.57 L, Calcium 7.6 L 05/13/20 05:50: RBC 3.60 L, Hgb 9.3 L, Hct 28.6 L, MCH 25.8 L, RDW 15.3 H Microbiology - Entire Visit 05/09/20 16:50 Venous blood - Right Hand Blood Culture - Final Klebsiella pneumoniae ssp pneu 05/09/20 16:50 Venous blood - Right Arm Blood Culture - Final Klebsiella pneumoniae ssp pneu 05/09/20 17:40 Urine clean catch Urine Culture - Final Klebsiella pneumoniae ssp pneu - Physical Exam Vitals: Vital Signs (12 hours) Temp Pulse Resp BP BP Pulse Ox 05/13/20 16:20 98.1 F 98 18 137/84 05/13/20 09:00 97 05/13/20 07:37 98.3 F 87 20 163/90 H 97 05/13/20 05:47 98.7 F 87 20 166/89 H 98 Weight Admit Weight 160 lb 4.8 oz Weight 160 lb 4.8 oz Most Recent Monitor Data Heart Rate from ECG 88 NIBP 158/80 NIBP BP-Mean 106 Respiration from ECG 22 SpO2 100 Physical Exam: The patient was seen and examined on the day of discharge. General: Patient is alert regarding x3Eye: PERRL, anicteric sclera ENT: normocephalic atraumatic, no oropharyngeal lesions Neck: no JVD Heart: RRR, no murmur, no gallops, no rubs Respiratory: CTAB, no wheezes, no rales, no ronchi Gastrointestinal: soft, non-tender, non-distended, normal bowel sounds Extremities: no cyanosis, no clubbing, no edema Skin: normal turgor, no lesions, no rashes Neurological: cranial nerve grossly intact, normal sensation to touch, no weakness Problem - Discharge Plan Plan of Treatment: The patient needs outpatietn PET scan and further workup of her lung mass. Consider increasing lantus dose at discretion of PCP if blood sugars are uncont rolled. - Time spent with Patient (mins): 35 Plan - Discharge Medications Prescriptions: Amoxicillin/Potassium Clav [Augmentin] 875 mg PO Q12HR #22 tab Folic Acid 1 mg PO DAILY #30 tablet HumaLOG [HumaLOG Vial] 3 unit SC TID-WM PRN #90 vial PRN Reason: Hyperglycemia Insulin Glargine [Lantus Vial] 8 units SC HS 30 Days #1 vial Home Medications: Medication Instructions Recorded Confirmed Type Gabapentin 300 mg PO BID 05/10/20 05/10/20 History Lisinopril 20 mg PO BID 05/10/20 05/10/20 History Amoxicillin/Potassium Clav 875 mg PO Q12HR #22 tab 05/13/20 Rx [Augmentin] Folic Acid 1 mg PO DAILY #30 tablet 05/13/20 Rx HumaLOG [HumaLOG Vial] 3 unit SC TID-WM PRN #90 vial 05/13/20 Rx Insulin Glargine [Lantus Vial] 8 units SC HS 30 Days #1 vial 05/13/20 Rx Allergies: Iodinated Contrast Media [Iodinated Contrast- Oral and IV Dye] Allergy (Mild, Verified 05/09/20 22:12) Hives - Discharge Instructions Activity:: Activity as Tolerated Nourishment:: Diabetic Diet - Follow up Plan Referrals: [facility] [Primary Care Provider] - 7 Days Disposition: HOME Quality - Care Measures CORE MEASURES:: N/A
[2020-05-13] MEDS ORDERED: Insulin Glargine 8 UNITS in Pre-Filled Syringe 1 EACH SC SCH (21:00)
[2020-05-14 12:13] LABS: A/G Ratio 0.7 (0.7-1.7); Alpha 1 0.3 g/dL (0.0-0.4); Alpha 2 0.7 g/dL (0.4-1.0); Beta 0.8 g/dL (0.7-1.3); Globulin, Total 2.8 g/dL (2.2-3.9); M-Spike Not Observed g/dL (Not Observed); Protein Electrophoresis Intrp Note: (.)
[2020-05-14 18:09] LABS: QuantiFERON-TB Gold Plus Negative (Negative)
== END 2020-05-13 16:38 | disposition home or self-care (01) | DRG 871 ==
LOC: ERS 16:05 → 2NO 19:49 → IMCU/EMU 05-10 17:08 → T4-A 05-12 22:42
PROVIDERS: ADMIT Family Medicine; ATTEND Family Medicine
DX: A41.59 Other Gram-negative sepsis (principal); E11.00 Type 2 diabetes mellitus with hyperosmolarity without nonketotic hyperglycemic-hyperosmolar coma (NKHHC); N12 Tubulo-interstitial nephritis, not specified as acute or chronic; E87.1 Hypo-osmolality and hyponatremia; K86.2 Cyst of pancreas; D52.9 Folate deficiency anemia, unspecified; Z20.828 Contact with and (suspected) exposure to other viral communicable diseases; K86.9 Disease of pancreas, unspecified; E87.6 Hypokalemia; E78.00 Pure hypercholesterolemia, unspecified; E27.8 Other specified disorders of adrenal gland; E86.0 Dehydration; I10 Essential (primary) hypertension; R91.8 Other nonspecific abnormal finding of lung field; D63.8 Anemia in other chronic diseases classified elsewhere; K31.84 Gastroparesis; E11.43 Type 2 diabetes mellitus with diabetic autonomic (poly)neuropathy; Z79.4 Long term (current) use of insulin; Z90.49 Acquired absence of other specified parts of digestive tract; Z90.710 Acquired absence of both cervix and uterus; Z91.041 Radiographic dye allergy status; Z88.1 Allergy status to other antibiotic agents; Z79.899 Other long term (current) drug therapy
CPT/HCPCS: 0240U; 36415; 36416; 71045; 71260; 74177; 80048; 80053; 81003; 81015; 82010; 82330; 82607; 82728; 82746; 82803; 83540; 83550; 83605; 83690; 83735; 83930; 84165; 84439; 84443; 84481; 85025; 85027; 85046; 86480; 87040; 87077; 87086; 87149; 87186; 94760; 96365; 96366; 96367; 96368; 96375; C9113; J0696; J1200; J1644; J1815; J2270; J2405; J2543; J2550; J2920; J3480; J3490; J7050; Q9967; S0028

== ENCOUNTER 2020-09-20 11:21 | Inpatient (IN) | payer MEDICARE ==
[~2020-09-20 11:21] MED LIST changes: +Heparin 1,000 UNITS/ML VIAL ONE; -Iopamidol-370 76% 500 ML 1 ML ONE
[2020-09-20 12:18] LABS: Hemoglobin 9.1 g/dL (12.0-16.0); Mean Corpuscular HGB CONC 32.1 g/dL (32.0-36.0); Mean Corpuscular Hemoglobin 24.3 pg (27.0-31.0); Mean Corpuscular Volume 75.8 fL (78.0-98.0); Mean Platelet Volume 9.7 fL (7.4-10.4); Platelet Count 170 thou/uL (130-400); RBC Distribution Width 15.4 % (11.5-14.5); Red Blood Cell (RBC) Count 3.73 mill/uL (4.20-5.40); White Blood Cell (WBC) Count 14.5 thou/uL (4.8-10.8)
[2020-09-20 12:23] LABS: INR-International Normal Ratio 1.1; Prothrombin Time 14.8 sec (12.0-14.7)
[2020-09-20 12:38] LABS: Anisocytosis SLIGHT = 6-15 cells (100X) (0-5/hpf); Band 15 % (5-11); Hypochromia SLIGHT = 6-15 cells (100X) (0-5/hpf); Lymphocytes 2 % (21-51); MDiff Complete? YES; Microcytosis SLIGHT = 6-15 cells (100X) (0-5/hpf); Monocytes 2 % (0-10); Neutrophil 81 % (42-75); Platelet Morphology Comment Appears Adequate; Polychromasia SLIGHT = 2-3 cells (100X) (0-2/hpf)
[2020-09-20] MEDS ORDERED: cefTRIAXone\\ROCEPHIN 1 GM VIAL ONE ×2 (12:40→12:51)
[2020-09-20] MEDS ORDERED: Acetaminophen 500 MG TAB ONE ×2 (12:41→12:51)
[2020-09-20] MEDS ORDERED: Ondansetron PF 4 MG/2 ML Vial ONE (12:41)
[2020-09-20] MEDS ORDERED: Azithromycin 500 MG VIAL ONE (12:51)
[2020-09-20 13:53] LABS: ALT (SGPT) 8 U/L (8-55); AST (SGOT) 13 U/L (5-34); Albumin 3.2 g/dL (3.4-4.8); Alkaline Phosphatase 118 U/L (40-110); Anion Gap 14 mmol/L (10-20); BUN (Urea Nitrogen) 18 mg/dL (9.8-20.1); Bilirubin, Total 0.9 mg/dL (0.2-1.2); Calc. Creatinine Clearance 0 mL/min (70-130); Calcium 8.2 mg/dL (7.8-10.44); Carbon Dioxide 23 mmol/L (23-31); Chloride 102 mmol/L (98-107); Globulin 3.7 g/dL (2.4-3.5); Glucose 152 mg/dL (80-115); Potassium 3.2 mmol/L (3.5-5.1); Protein, Total 6.9 g/dL (5.8-8.1); Sodium 136 mmol/L (136-145)
[2020-09-20] MEDS ORDERED: Ondansetron ODT 4 MG TAB SL PRN (17:15)
[2020-09-20] MEDS: Acetaminophen 325 MG TAB PO PRN ×2 (17:23→21:59)
[2020-09-20] MEDS: Ondansetron PF 4 MG/2 ML Vial IVP PRN (20:02)
[2020-09-20] MEDS ORDERED: Morphine 4 MG/ML VIAL SLOW IVP SCH (20:15)
[2020-09-20 22:22] LABS: Actual Bicarbonate (HCO3a) 20.7 mEq/L (22-28); Base Excess (BEa) -2.4 mEq/L (-2.0 to +3.0); CO2 Tension 29.3 mmHg (35.0-45.0); Calcium, Ionized (arterial) 1.06 mmol/L (1.12-1.30); Carboxyhemoglobin (COHb) 0.2 gm% (0.0-3.0); Hemoglobin (Hb) 9.7 g/dL (12.0-16.0); Potassium - ABG Lab 3.68 mmol/L (3.70-5.30); pH, Arterial 7.47 (7.35-7.45)
[2020-09-20 22:42] LABS: #Monocytes 0.9 thou/uL (0.11-0.59); #Neutrophils 14.6 thou/uL (1.40-6.50); %Basophils 0.2 % (0.0-1.0); %Eosinophils 0.1 % (0.0-10.0); %Lymphocytes 5.9 % (21.0-51.0); %Monocytes 5.6 % (0.0-10.0); %Neutrophils 88.3 % (42.0-75.0); Hemoglobin 8.8 g/dL (12.0-16.0); Mean Corpuscular HGB CONC 32.2 g/dL (32.0-36.0); Mean Corpuscular Hemoglobin 24.5 pg (27.0-31.0); Mean Corpuscular Volume 76.1 fL (78.0-98.0); Mean Platelet Volume 9.7 fL (7.4-10.4); Platelet Count 155 thou/uL (130-400); RBC Distribution Width 15.6 % (11.5-14.5); Red Blood Cell (RBC) Count 3.59 mill/uL (4.20-5.40); White Blood Cell (WBC) Count 16.5 thou/uL (4.8-10.8)
[2020-09-20 22:58] LABS: Lactic Acid 2.9 mmol/L (0.5-2.2)
[2020-09-20] MEDS ORDERED: Cefepime 2 GM in Sodium Chloride 0.9% 100 ML IVPB SCH (23:00)
[2020-09-20 23:03] LABS: ALT (SGPT) 8 U/L (8-55); AST (SGOT) 15 U/L (5-34); Albumin 3.1 g/dL (3.4-4.8); Alkaline Phosphatase 119 U/L (40-110); Anion Gap 16 mmol/L (10-20); BUN (Urea Nitrogen) 17 mg/dL (9.8-20.1); Bilirubin, Total 0.8 mg/dL (0.2-1.2); Calc. Creatinine Clearance 80 mL/min (70-130); Calcium 8.3 mg/dL (7.8-10.44); Carbon Dioxide 19 mmol/L (23-31); Chloride 102 mmol/L (98-107); Globulin 4.1 g/dL (2.4-3.5); Glucose 172 mg/dL (80-115); Potassium 3.6 mmol/L (3.5-5.1); Protein, Total 7.2 g/dL (5.8-8.1); Sodium 133 mmol/L (136-145)
[2020-09-20] MEDS ORDERED: Vancomycin HCl 1.5 GM in Sodium Chloride 0.9% 250 ML 300 ML IVPB SCH (23:15)
[2020-09-20] MEDS: Piperacillin/Tazobactam 3.375 GM in Sodium Chloride 0.9% 100 ML IVPB SCH (23:26)
[2020-09-20 23:31] LABS: CKMB 1.2 ng/mL (0-6.6)
[2020-09-20] MEDS ORDERED: Sodium Chloride 0.9% 500 ML IVPB SCH (23:45)
[2020-09-21 00:49] LABS: Bacteria/HPF 3+ HPF (None Seen); Bilirubin Negative (Negative); Blood, Urine 3+ (Negative); Clarity Turbid (Clear); Glucose, Urine (Dipstick) Normal (Negative); Ketone, Urine Negative (Negative); Leukocyte 500 Leu/uL (Negative); Nitrite 1+ (Negative); Protein, Urine (Dipstick) 100 mg/dL (Neg-Trace); Specific Gravity, Urine 1.018 (1.002-1.036); Squamous Epithelial None Seen HPF (0-3); WBC/HPF Greater than 50 HPF (0-3)
[2020-09-21 00:50] LABS: Urine Culture Reflex Yes Yes
[2020-09-21 01:45] LABS: SARS-CoV-2 NAA Rapid Test DETECTED (NotDetected)
[2020-09-21 02:24] LABS: #Lymphocytes 0.7 thou/uL (1.20-3.40); #Monocytes 0.8 thou/uL (0.11-0.59); #Neutrophils 14.6 thou/uL (1.40-6.50); %Eosinophils 0.1 % (0.0-10.0); %Lymphocytes 4.3 % (21.0-51.0); %Neutrophils 90.6 % (42.0-75.0); Hemoglobin 7.7 g/dL (12.0-16.0); Mean Corpuscular HGB CONC 32.2 g/dL (32.0-36.0); Mean Corpuscular Hemoglobin 24.4 pg (27.0-31.0); Mean Corpuscular Volume 75.8 fL (78.0-98.0); Mean Platelet Volume 9.5 fL (7.4-10.4); Platelet Count 151 thou/uL (130-400); RBC Distribution Width 15.5 % (11.5-14.5); Red Blood Cell (RBC) Count 3.18 mill/uL (4.20-5.40); White Blood Cell (WBC) Count 16.1 thou/uL (4.8-10.8)
[2020-09-21 02:48] LABS: Troponin I 0.801 ng/mL (< 0.028)
[2020-09-21 02:49] LABS: Anion Gap 11 mmol/L (10-20); BUN (Urea Nitrogen) 19 mg/dL (9.8-20.1); Calc. Creatinine Clearance 81 mL/min (70-130); Calcium 7.8 mg/dL (7.8-10.44); Carbon Dioxide 23 mmol/L (23-31); Chloride 104 mmol/L (98-107); Glucose 151 mg/dL (80-115); Potassium 3.1 mmol/L (3.5-5.1); Sodium 135 mmol/L (136-145)
[2020-09-21] MEDS: Acetaminophen 325 MG TAB PO PRN ×2 (03:25→11:36)
[2020-09-21] MEDS: Piperacillin/Tazobactam 3.375 GM in Sodium Chloride 0.9% 100 ML IVPB SCH ×4 (05:30→23:43)
[2020-09-21 05:58] LABS: Critical Call Chem Troponin I RESULT DECREASING; Troponin I 0.597 ng/mL (< 0.028)
[2020-09-21] MEDS ORDERED: Enoxaparin Sodium 40 MG/0.4 ML SYRINGE SC SCH ×3 (09:00→21:00)
[2020-09-21] MEDS ORDERED: Potassium Chloride 20 MEQ TAB PO SCH (09:45)
[2020-09-21] MEDS ORDERED: Dexamethasone 4 mg/ml Vial SLOW IVP SCH (10:00)
[2020-09-21] MEDS: Vancomycin 1 GM in Premix Bag 1 BAG IVPB SCH ×2 (10:09→20:58)
[2020-09-21] MEDS: Ondansetron PF 4 MG/2 ML Vial IVP PRN ×2 (10:15→20:58)
[2020-09-21] MEDS ORDERED: Fioricet 325/50/40 mg Tablet PO PRN (11:30)
[2020-09-21] MEDS ORDERED: Dextrose 5% in Water 1,000 ML IV PRN (11:31)
[2020-09-21] MEDS ORDERED: Dextrose 50% Abboject 50 ML SYRINGE SLOW IVP PRN (11:31)
[2020-09-21] MEDS ORDERED: Azithromycin 500 MG in Sodium Chloride 0.9% 250 ML 250 ML IVPB SCH (13:00)
[2020-09-21] MEDS: Scopolamine 1.5 mg/72 hour Patch TD SCH (13:13)
[2020-09-21] MEDS ORDERED: cefTRIAXone\\ROCEPHIN 2 GM in Sodium Chloride 0.9% 100 ML IVPB SCH (14:00)
[2020-09-21] MEDS ORDERED: Promethazine HCl 12.5 MG in Sodium Chloride 0.9% 50 ML IVPB SCH ×2 (17:15→22:30)
[2020-09-21] MEDS: Enoxaparin Sodium 60 MG/0.6 ML SYRINGE SC SCH (20:59)
[2020-09-22] MEDS: Piperacillin/Tazobactam 3.375 GM in Sodium Chloride 0.9% 100 ML IVPB SCH ×4 (05:12→22:23)
[2020-09-22] MEDS: Ondansetron PF 4 MG/2 ML Vial IVP PRN (05:45)
[2020-09-22 06:05] LABS: #Lymphocytes 1.1 thou/uL (1.20-3.40); #Monocytes 1.3 thou/uL (0.11-0.59); #Neutrophils 16.1 thou/uL (1.40-6.50); %Eosinophils 0.1 % (0.0-10.0); %Lymphocytes 5.7 % (21.0-51.0); %Neutrophils 87.2 % (42.0-75.0); Hemoglobin 9.2 g/dL (12.0-16.0); Mean Corpuscular HGB CONC 31.5 g/dL (32.0-36.0); Mean Corpuscular Hemoglobin 24.4 pg (27.0-31.0); Mean Corpuscular Volume 77.3 fL (78.0-98.0); Mean Platelet Volume 9.2 fL (7.4-10.4); Platelet Count 173 thou/uL (130-400); Red Blood Cell (RBC) Count 3.77 mill/uL (4.20-5.40); White Blood Cell (WBC) Count 18.5 thou/uL (4.8-10.8)
[2020-09-22 06:24] LABS: Anion Gap 10 mmol/L (10-20); BUN (Urea Nitrogen) 20 mg/dL (9.8-20.1); Calc. Creatinine Clearance 88 mL/min (70-130); Calcium 8.4 mg/dL (7.8-10.44); Carbon Dioxide 25 mmol/L (23-31); Chloride 100 mmol/L (98-107); Glucose 191 mg/dL (80-115); Potassium 3.4 mmol/L (3.5-5.1); Sodium 132 mmol/L (136-145)
[2020-09-22] MEDS: Dexamethasone 4 mg/ml Vial SLOW IVP SCH (07:46)
[2020-09-22] MEDS: Enoxaparin Sodium 60 MG/0.6 ML SYRINGE SC SCH ×2 (07:48→20:06)
[2020-09-22] MEDS ORDERED: Dexamethasone 20 MG/5 ML VIAL SLOW IVP SCH (09:00)
[2020-09-22] MEDS ORDERED: Nitroglycerin 0.4 MG TAB (25 Tab Bottle) ONE (09:11)
[2020-09-22 09:40] LABS: Vancomycin, Trough 13.8 ug/mL
[2020-09-22] MEDS ORDERED: Ketorolac Tromethamine 30 MG/ML VIAL IVP SCH (09:45)
[2020-09-22] MEDS ORDERED: Pantoprazole 40 MG VIAL IVP SCH ×2 (10:00)
[2020-09-22] MEDS: Pantoprazole 40 MG VIAL IVP SCH ×2 (10:58→20:07)
[2020-09-22 11:00] LABS: Puncture Site RRA
[2020-09-22] MEDS: Promethazine HCl 12.5 MG in Sodium Chloride 0.9% 50 ML IVPB PRN (13:10)
[2020-09-22] MEDS ORDERED: Nitroglycerin 0.4 MG TAB (25 Tab Bottle) SL PRN (15:58)
[2020-09-22] MEDS: HumaLOG 300 UNITS/3 ML VIAL SC PRN (17:59)
[2020-09-22] MEDS: Sodium Chloride 0.9% 1,000 ML IV SCH (18:44)
[2020-09-22] MEDS: Acetaminophen 325 MG TAB PO PRN (20:39)
[2020-09-23] MEDS: Acetaminophen 325 MG TAB PO PRN (02:42)
[2020-09-23] MEDS: Piperacillin/Tazobactam 3.375 GM in Sodium Chloride 0.9% 100 ML IVPB SCH ×4 (04:05→23:00)
[2020-09-23] MEDS: hydrALAZINE 20 MG/ML VIAL SLOW IVP PRN (04:05)
[2020-09-23] MEDS ORDERED: Morphine 4 MG/ML VIAL SLOW IVP SCH (05:00)
[2020-09-23 05:28] LABS: #Eosinphils 0.1 thou/uL (0.0-0.7); #Lymphocytes 1.3 thou/uL (1.20-3.40); #Monocytes 1.2 thou/uL (0.11-0.59); #Neutrophils 11.5 thou/uL (1.40-6.50); %Eosinophils 0.5 % (0.0-10.0); %Lymphocytes 9.5 % (21.0-51.0); %Monocytes 8.2 % (0.0-10.0); %Neutrophils 81.9 % (42.0-75.0); Hemoglobin 10.2 g/dL (12.0-16.0); Mean Corpuscular HGB CONC 32.1 g/dL (32.0-36.0); Mean Corpuscular Hemoglobin 25.1 pg (27.0-31.0); Mean Platelet Volume 9.6 fL (7.4-10.4); Platelet Count 236 thou/uL (130-400); Red Blood Cell (RBC) Count 4.07 mill/uL (4.20-5.40); White Blood Cell (WBC) Count 14.1 thou/uL (4.8-10.8)
[2020-09-23 05:49] LABS: Anion Gap 15 mmol/L (10-20); BUN (Urea Nitrogen) 22 mg/dL (9.8-20.1); Calc. Creatinine Clearance 91 mL/min (70-130); Calcium 8.6 mg/dL (7.8-10.44); Carbon Dioxide 21 mmol/L (23-31); Chloride 101 mmol/L (98-107); Glucose 149 mg/dL (80-115); Potassium 3.7 mmol/L (3.5-5.1); Sodium 133 mmol/L (136-145)
[2020-09-23] MEDS: Pantoprazole 40 MG VIAL IVP SCH ×2 (07:52→21:02)
[2020-09-23] MEDS: Enoxaparin Sodium 60 MG/0.6 ML SYRINGE SC SCH (07:52)
[2020-09-23] MEDS: Dexamethasone 4 mg/ml Vial SLOW IVP SCH (07:54)
[2020-09-23] MEDS: Sodium Chloride 0.9% 1,000 ML IV SCH ×2 (07:56→23:00)
[2020-09-23] MEDS ORDERED: Diltiazem 125 MG in Sodium Chloride 0.9% 100 ML IVPB SCH (10:00)
[2020-09-23] MEDS: Promethazine HCl 12.5 MG in Sodium Chloride 0.9% 50 ML IVPB PRN ×2 (11:43→23:31)
[2020-09-23] MEDS: Morphine 4 MG/ML VIAL SLOW IVP PRN (17:34)
[2020-09-23] MEDS: HumaLOG 300 UNITS/3 ML VIAL SC PRN (18:47)
[2020-09-23] MEDS: Enoxaparin Sodium 80 MG/0.8 ML SYRINGE SC SCH (21:02)
[2020-09-23] MEDS: Metoprolol Tartrate 25 MG TAB PO SCH (21:02)
[2020-09-24] MEDS: Morphine 4 MG/ML VIAL SLOW IVP PRN ×3 (03:00→19:52)
[2020-09-24] MEDS: hydrALAZINE 20 MG/ML VIAL SLOW IVP PRN ×2 (03:55→11:15)
[2020-09-24] MEDS: Piperacillin/Tazobactam 3.375 GM in Sodium Chloride 0.9% 100 ML IVPB SCH ×4 (03:56→22:45)
[2020-09-24 05:00] LABS: #Eosinphils 0.1 thou/uL (0.0-0.7); #Monocytes 0.9 thou/uL (0.11-0.59); #Neutrophils 7.8 thou/uL (1.40-6.50); %Basophils 0.3 % (0.0-1.0); %Eosinophils 1.3 % (0.0-10.0); %Lymphocytes 10.4 % (21.0-51.0); %Monocytes 8.7 % (0.0-10.0); %Neutrophils 79.4 % (42.0-75.0); Hemoglobin 9.8 g/dL (12.0-16.0); Mean Corpuscular HGB CONC 30.9 g/dL (32.0-36.0); Mean Corpuscular Hemoglobin 24.2 pg (27.0-31.0); Mean Corpuscular Volume 78.3 fL (78.0-98.0); Mean Platelet Volume 9.4 fL (7.4-10.4); Platelet Count 247 thou/uL (130-400); RBC Distribution Width 17.7 % (11.5-14.5); Red Blood Cell (RBC) Count 4.03 mill/uL (4.20-5.40); White Blood Cell (WBC) Count 9.8 thou/uL (4.8-10.8)
[2020-09-24 05:43] LABS: Anion Gap 10 mmol/L (10-20); BUN (Urea Nitrogen) 21 mg/dL (9.8-20.1); Calc. Creatinine Clearance 97 mL/min (70-130); Calcium 8.3 mg/dL (7.8-10.44); Carbon Dioxide 24 mmol/L (23-31); Chloride 103 mmol/L (98-107); Glucose 167 mg/dL (80-115); Potassium 3.5 mmol/L (3.5-5.1); Sodium 133 mmol/L (136-145)
[2020-09-24] MEDS ORDERED: Heparin 10,000 UNITS/ 10 ML VIAL ONE (06:46)
[2020-09-24] MEDS ORDERED: Isoproterenol 0.2 MG/1 ML AMP ONE (06:46)
[2020-09-24] MEDS ORDERED: Heparin 0 ML ONE (06:46)
[2020-09-24] MEDS ORDERED: Heparin 25,000 units/D5W 0 ML ONE (06:47)
[2020-09-24] MEDS: Enoxaparin Sodium 80 MG/0.8 ML SYRINGE SC SCH ×2 (09:14→19:51)
[2020-09-24] MEDS: Pantoprazole 40 MG VIAL IVP SCH ×2 (09:14→19:52)
[2020-09-24] MEDS: Metoprolol Tartrate 25 MG TAB PO SCH (09:15)
[2020-09-24] MEDS: Promethazine HCl 12.5 MG in Sodium Chloride 0.9% 50 ML IVPB PRN (09:15)
[2020-09-24] MEDS: Scopolamine 1.5 mg/72 hour Patch TD SCH (11:15)
[2020-09-24] MEDS ORDERED: Metoprolol Tartrate 25 MG TAB PO SCH (14:15)
[2020-09-24] MEDS: Sodium Chloride 0.9% 1,000 ML IV SCH (15:35)
[2020-09-24] MEDS: Acetaminophen 325 MG TAB PO PRN (16:33)
[2020-09-24] MEDS: Metoprolol Tartrate 50 MG TAB PO SCH (19:52)
[2020-09-24] MEDS: HumaLOG 300 UNITS/3 ML VIAL SC PRN (20:02)
[2020-09-25] MEDS ORDERED: predniSONE 50 MG TAB PO SCH (02:30)
[2020-09-25] MEDS: Morphine 4 MG/ML VIAL SLOW IVP PRN ×2 (03:36→09:41)
[2020-09-25] MEDS: Piperacillin/Tazobactam 3.375 GM in Sodium Chloride 0.9% 100 ML IVPB SCH ×4 (04:39→23:53)
[2020-09-25] MEDS: Promethazine HCl 12.5 MG in Sodium Chloride 0.9% 50 ML IVPB PRN (05:12)
[2020-09-25] MEDS: HumaLOG 300 UNITS/3 ML VIAL SC PRN ×4 (06:39→20:46)
[2020-09-25] MEDS: Enoxaparin Sodium 80 MG/0.8 ML SYRINGE SC SCH ×2 (08:32→20:41)
[2020-09-25] MEDS: Metoprolol Tartrate 50 MG TAB PO SCH ×2 (08:32→20:43)
[2020-09-25] MEDS: Sodium Chloride 0.9% 1,000 ML IV SCH ×2 (08:32→17:14)
[2020-09-25] MEDS: predniSONE 50 MG TAB PO SCH ×2 (08:32→14:28)
[2020-09-25] MEDS: Pantoprazole 40 MG VIAL IVP SCH ×2 (08:32→20:44)
[2020-09-25] MEDS ORDERED: Amlodipine 10 MG TAB PO SCH (10:15)
[2020-09-25] MEDS ORDERED: Iopamidol-370 76% 500 ML 1 ML ONE (11:27)
[2020-09-25] MEDS: hydrALAZINE 20 MG/ML VIAL SLOW IVP PRN (11:47)
[2020-09-25] MEDS ORDERED: diphenhydrAMINE 50 MG CAP PO SCH ×2 (13:30→14:30)
[2020-09-25] MEDS ORDERED: Metoprolol Tartrate 25 MG TAB PO SCH (14:30)
[2020-09-25] MEDS: Gabapentin 300 MG CAP PO SCH (20:42)
[2020-09-26] MEDS: Piperacillin/Tazobactam 3.375 GM in Sodium Chloride 0.9% 100 ML IVPB SCH ×4 (05:25→23:40)
[2020-09-26 05:56] LABS: #Eosinphils 0.1 thou/uL (0.0-0.7); #Lymphocytes 0.8 thou/uL (1.20-3.40); #Monocytes 0.5 thou/uL (0.11-0.59); #Neutrophils 5.7 thou/uL (1.40-6.50); %Basophils 0.1 % (0.0-1.0); %Eosinophils 1.1 % (0.0-10.0); %Lymphocytes 10.8 % (21.0-51.0); %Monocytes 7.7 % (0.0-10.0); %Neutrophils 80.3 % (42.0-75.0); Hemoglobin 8.8 g/dL (12.0-16.0); Mean Corpuscular HGB CONC 31.4 g/dL (32.0-36.0); Mean Corpuscular Hemoglobin 24.6 pg (27.0-31.0); Mean Corpuscular Volume 78.4 fL (78.0-98.0); Mean Platelet Volume 9.5 fL (7.4-10.4); Platelet Count 226 thou/uL (130-400); Red Blood Cell (RBC) Count 3.59 mill/uL (4.20-5.40); White Blood Cell (WBC) Count 7.1 thou/uL (4.8-10.8)
[2020-09-26 06:14] LABS: Anion Gap 9 mmol/L (10-20); BUN (Urea Nitrogen) 19 mg/dL (9.8-20.1); Calc. Creatinine Clearance 88 mL/min (70-130); Calcium 8.2 mg/dL (7.8-10.44); Carbon Dioxide 23 mmol/L (23-31); Chloride 105 mmol/L (98-107); Glucose 208 mg/dL (80-115); Potassium 3.2 mmol/L (3.5-5.1); Sodium 134 mmol/L (136-145)
[2020-09-26] MEDS: HumaLOG 300 UNITS/3 ML VIAL SC PRN ×4 (06:26→21:49)
[2020-09-26] MEDS: Sodium Chloride 0.9% 1,000 ML IV SCH ×2 (09:02→23:41)
[2020-09-26] MEDS: Pantoprazole 40 MG VIAL IVP SCH ×2 (09:03→21:43)
[2020-09-26] MEDS: Enoxaparin Sodium 80 MG/0.8 ML SYRINGE SC SCH ×2 (09:03→21:42)
[2020-09-26] MEDS: Metoprolol Tartrate 50 MG TAB PO SCH ×2 (09:04→21:41)
[2020-09-26] MEDS: Gabapentin 300 MG CAP PO SCH ×2 (09:04→21:41)
[2020-09-26] MEDS: Amlodipine 10 MG TAB PO SCH (09:04)
[2020-09-26] MEDS: Promethazine HCl 12.5 MG in Sodium Chloride 0.9% 50 ML IVPB PRN ×2 (09:15→16:22)
[2020-09-26] MEDS: Morphine 4 MG/ML VIAL SLOW IVP PRN (09:16)
[2020-09-26] MEDS ORDERED: Potassium Chloride 20 MEQ TAB PO SCH (11:00)
[2020-09-27 04:47] LABS: #Eosinphils 0.3 thou/uL (0.0-0.7); #Lymphocytes 1.2 thou/uL (1.20-3.40); #Monocytes 0.6 thou/uL (0.11-0.59); #Neutrophils 6.6 thou/uL (1.40-6.50); %Basophils 0.1 % (0.0-1.0); %Eosinophils 3.1 % (0.0-10.0); %Lymphocytes 13.2 % (21.0-51.0); %Monocytes 7.1 % (0.0-10.0); %Neutrophils 76.5 % (42.0-75.0); Hemoglobin 8.9 g/dL (12.0-16.0); Mean Corpuscular HGB CONC 30.9 g/dL (32.0-36.0); Mean Corpuscular Hemoglobin 24.4 pg (27.0-31.0); Mean Corpuscular Volume 79.2 fL (78.0-98.0); Mean Platelet Volume 9.7 fL (7.4-10.4); Platelet Count 234 thou/uL (130-400); RBC Distribution Width 18.5 % (11.5-14.5); Red Blood Cell (RBC) Count 3.65 mill/uL (4.20-5.40); White Blood Cell (WBC) Count 8.7 thou/uL (4.8-10.8)
[2020-09-27 05:00] LABS: Anion Gap 10 mmol/L (10-20); BUN (Urea Nitrogen) 20 mg/dL (9.8-20.1); Calc. Creatinine Clearance 80 mL/min (70-130); Calcium 8.5 mg/dL (7.8-10.44); Carbon Dioxide 25 mmol/L (23-31); Chloride 105 mmol/L (98-107); Glucose 239 mg/dL (80-115); Potassium 3.6 mmol/L (3.5-5.1); Sodium 136 mmol/L (136-145)
[2020-09-27] MEDS: Piperacillin/Tazobactam 3.375 GM in Sodium Chloride 0.9% 100 ML IVPB SCH ×4 (05:09→22:38)
[2020-09-27] MEDS: HumaLOG 300 UNITS/3 ML VIAL SC PRN ×4 (05:56→22:39)
[2020-09-27] MEDS ORDERED: Furosemide 40 MG/4 ML VIAL SLOW IVP SCH (08:30)
[2020-09-27] MEDS: Metoprolol Tartrate 50 MG TAB PO SCH ×2 (09:46→20:24)
[2020-09-27] MEDS: Gabapentin 300 MG CAP PO SCH ×2 (09:47→20:26)
[2020-09-27] MEDS: Enoxaparin Sodium 80 MG/0.8 ML SYRINGE SC SCH ×2 (09:47→20:27)
[2020-09-27] MEDS: Amlodipine 10 MG TAB PO SCH (09:47)
[2020-09-27] MEDS: Pantoprazole 40 MG VIAL IVP SCH ×2 (09:48→20:28)
[2020-09-27] MEDS: Morphine 4 MG/ML VIAL SLOW IVP PRN (10:03)
[2020-09-27] MEDS: Scopolamine 1.5 mg/72 hour Patch TD SCH (12:06)
[2020-09-27] MEDS ORDERED: Lantus 1000 UNITS/10 ML VIAL SC SCH (21:00)
[2020-09-28] MEDS: Loperamide HCl 2 MG CAP PO PRN (00:11)
[2020-09-28 04:48] LABS: #Eosinphils 0.2 thou/uL (0.0-0.7); #Monocytes 0.6 thou/uL (0.11-0.59); #Neutrophils 9.3 thou/uL (1.40-6.50); %Basophils 0.2 % (0.0-1.0); %Eosinophils 1.4 % (0.0-10.0); %Monocytes 5.7 % (0.0-10.0); %Neutrophils 83.7 % (42.0-75.0); Hemoglobin 8.1 g/dL (12.0-16.0); Mean Corpuscular HGB CONC 30.8 g/dL (32.0-36.0); Mean Corpuscular Hemoglobin 24.4 pg (27.0-31.0); Mean Corpuscular Volume 79.1 fL (78.0-98.0); Mean Platelet Volume 9.9 fL (7.4-10.4); Platelet Count 185 thou/uL (130-400); Red Blood Cell (RBC) Count 3.32 mill/uL (4.20-5.40); White Blood Cell (WBC) Count 11.1 thou/uL (4.8-10.8)
[2020-09-28 05:01] LABS: Anion Gap 9 mmol/L (10-20); BUN (Urea Nitrogen) 16 mg/dL (9.8-20.1); Calc. Creatinine Clearance 78 mL/min (70-130); Calcium 7.9 mg/dL (7.8-10.44); Carbon Dioxide 24 mmol/L (23-31); Chloride 104 mmol/L (98-107); Glucose 308 mg/dL (80-115); Potassium 3.4 mmol/L (3.5-5.1); Sodium 134 mmol/L (136-145)
[2020-09-28] MEDS: Piperacillin/Tazobactam 3.375 GM in Sodium Chloride 0.9% 100 ML IVPB SCH ×3 (05:13→21:22)
[2020-09-28] MEDS: HumaLOG 300 UNITS/3 ML VIAL SC PRN ×4 (05:14→21:24)
[2020-09-28] MEDS: Metoprolol Tartrate 50 MG TAB PO SCH ×2 (07:52→21:22)
[2020-09-28] MEDS: Amlodipine 10 MG TAB PO SCH (07:53)
[2020-09-28] MEDS: Gabapentin 300 MG CAP PO SCH ×2 (07:53→21:23)
[2020-09-28] MEDS: Pantoprazole 40 MG VIAL IVP SCH ×2 (07:56→21:23)
[2020-09-28] MEDS: Enoxaparin Sodium 80 MG/0.8 ML SYRINGE SC SCH ×2 (07:56→21:22)
[2020-09-28] MEDS ORDERED: Dexamethasone 4 mg/ml Vial SLOW IVP SCH (09:00)
[2020-09-28] MEDS ORDERED: Magnevist 469MG/ML 20 ML VIAL ONE (09:01)
[2020-09-28] MEDS ORDERED: HumaLOG 300 UNITS/3 ML VIAL SC SCH (17:15)
[2020-09-28] MEDS: Lantus 1000 UNITS/10 ML VIAL SC SCH (18:13)
[2020-09-28] MEDS ORDERED: Amoxicillin/Potassium Clav 875 MG TAB PO SCH (21:00)
[2020-09-28] MEDS ORDERED: Lantus 1000 UNITS/10 ML VIAL SC SCH (21:00)
[2020-09-29] MEDS: Piperacillin/Tazobactam 3.375 GM in Sodium Chloride 0.9% 100 ML IVPB SCH ×3 (03:57→15:22)
[2020-09-29 05:13] LABS: #Eosinphils 0.1 thou/uL (0.0-0.7); #Monocytes 0.5 thou/uL (0.11-0.59); #Neutrophils 6.5 thou/uL (1.40-6.50); %Eosinophils 1.4 % (0.0-10.0); %Monocytes 5.8 % (0.0-10.0); %Neutrophils 80.7 % (42.0-75.0); Hemoglobin 7.9 g/dL (12.0-16.0); Mean Corpuscular HGB CONC 31.4 g/dL (32.0-36.0); Mean Corpuscular Volume 79.6 fL (78.0-98.0); Mean Platelet Volume 10.4 fL (7.4-10.4); Platelet Count 178 thou/uL (130-400); RBC Distribution Width 19.7 % (11.5-14.5); Red Blood Cell (RBC) Count 3.16 mill/uL (4.20-5.40)
[2020-09-29 05:39] LABS: Anion Gap 11 mmol/L (10-20); BUN (Urea Nitrogen) 14 mg/dL (9.8-20.1); Calc. Creatinine Clearance 70 mL/min (70-130); Calcium 8.1 mg/dL (7.8-10.44); Carbon Dioxide 25 mmol/L (23-31); Chloride 103 mmol/L (98-107); Glucose 366 mg/dL (80-115); Potassium 3.8 mmol/L (3.5-5.1); Sodium 135 mmol/L (136-145)
[2020-09-29] MEDS: HumaLOG 300 UNITS/3 ML VIAL SC PRN ×3 (06:04→19:42)
[2020-09-29] MEDS ORDERED: Dexamethasone 4 MG TAB PO SCH (08:00)
[2020-09-29] MEDS: Amlodipine 10 MG TAB PO SCH (08:01)
[2020-09-29] MEDS: Gabapentin 300 MG CAP PO SCH ×2 (08:04→19:58)
[2020-09-29] MEDS: Metoprolol Tartrate 50 MG TAB PO SCH ×2 (08:05→19:59)
[2020-09-29] MEDS: Pantoprazole 40 MG VIAL IVP SCH ×2 (08:08→19:59)
[2020-09-29] MEDS: Lantus 1000 UNITS/10 ML VIAL SC SCH (08:11)
[2020-09-29] MEDS: Enoxaparin Sodium 80 MG/0.8 ML SYRINGE SC SCH ×2 (13:24→19:57)
[2020-09-29] MEDS ORDERED: cefTRIAXone\\ROCEPHIN 2 GM in Sodium Chloride 0.9% 100 ML IVPB SCH (16:00)
[2020-09-29] MEDS: cefTRIAXone\\ROCEPHIN 2 GM in Sodium Chloride 0.9% 100 ML IVPB SCH (19:57)
[2020-09-29] MEDS: Acetaminophen 325 MG TAB PO PRN (19:58)
[2020-09-29] MEDS ORDERED: Lantus 1000 UNITS/10 ML VIAL SC SCH (21:00)
[2020-09-29] MEDS: Morphine 4 MG/ML VIAL SLOW IVP PRN (22:30)
[2020-09-30] MEDS: Acetaminophen 325 MG TAB PO PRN (03:42)
[2020-09-30] MEDS: Morphine 4 MG/ML VIAL SLOW IVP PRN ×2 (04:27→10:47)
[2020-09-30 05:32] LABS: #Eosinphils 0.2 thou/uL (0.0-0.7); #Monocytes 0.5 thou/uL (0.11-0.59); #Neutrophils 6.8 thou/uL (1.40-6.50); %Eosinophils 2.2 % (0.0-10.0); %Lymphocytes 11.3 % (21.0-51.0); %Monocytes 5.8 % (0.0-10.0); %Neutrophils 80.8 % (42.0-75.0); Hemoglobin 8.2 g/dL (12.0-16.0); Mean Corpuscular Hemoglobin 24.9 pg (27.0-31.0); Mean Corpuscular Volume 80.2 fL (78.0-98.0); Mean Platelet Volume 10.4 fL (7.4-10.4); Platelet Count 200 thou/uL (130-400); RBC Distribution Width 19.8 % (11.5-14.5); Red Blood Cell (RBC) Count 3.28 mill/uL (4.20-5.40); White Blood Cell (WBC) Count 8.4 thou/uL (4.8-10.8)
[2020-09-30 05:55] LABS: Anion Gap 10 mmol/L (10-20); BUN (Urea Nitrogen) 15 mg/dL (9.8-20.1); Calc. Creatinine Clearance 75 mL/min (70-130); Calcium 8.1 mg/dL (7.8-10.44); Carbon Dioxide 25 mmol/L (23-31); Chloride 102 mmol/L (98-107); Glucose 299 mg/dL (80-115); Potassium 3.5 mmol/L (3.5-5.1); Sodium 133 mmol/L (136-145)
[2020-09-30] MEDS ORDERED: Morphine 4 MG/ML VIAL ONE (10:38)
[2020-09-30] MEDS ORDERED: Fentanyl 100 MCG/2 ML VIAL ONE (11:09)
[2020-09-30] MEDS ORDERED: PROPOFOL 200 MG/20 ML VIAL ONE (11:39)
[2020-09-30] MEDS ORDERED: Ketamine 50 MG/ML (10ML VIAL) ONE (11:57)
[2020-09-30] MEDS ORDERED: Lidocaine 4% PF 5 ML AMP NEB SCH (12:15)
[2020-09-30] MEDS: Metoprolol Tartrate 50 MG TAB PO SCH ×2 (17:39→21:16)
[2020-09-30] MEDS: Pantoprazole 40 MG VIAL IVP SCH ×2 (17:39→21:18)
[2020-09-30] MEDS: Amlodipine 10 MG TAB PO SCH (17:55)
[2020-09-30] MEDS: Enoxaparin Sodium 80 MG/0.8 ML SYRINGE SC SCH ×2 (17:55→21:12)
[2020-09-30] MEDS: Gabapentin 300 MG CAP PO SCH ×2 (17:55→21:14)
[2020-09-30] MEDS: cefTRIAXone\\ROCEPHIN 2 GM in Sodium Chloride 0.9% 100 ML IVPB SCH (17:57)
[2020-09-30] MEDS: Scopolamine 1.5 mg/72 hour Patch TD SCH (17:58)
[2020-09-30] MEDS: HumaLOG 300 UNITS/3 ML VIAL SC PRN ×2 (18:00→21:34)
[2020-09-30] MEDS: Lantus 1000 UNITS/10 ML VIAL SC SCH (18:16)
[2020-09-30] MEDS ORDERED: oxyCODONE/Acetaminophen 5 mg/325 mg Tablet PO PRN (19:32)
[2020-09-30] MEDS ORDERED: Lantus 1000 UNITS/10 ML VIAL SC SCH (21:00)
[2020-09-30] MEDS: HYDROcodone/Acetaminophen 5/325 mg Tablet PO PRN (21:18)
[2020-09-30] MEDS: Fentanyl 100 MCG/2 ML VIAL SLOW IVP PRN (21:19)
[2020-09-30] MEDS ORDERED: Sodium Chloride 0.9% 500 ML IV SCH ×2 (22:45→23:59)
[2020-10-01] MEDS ORDERED: Sodium Chloride 0.9% 1,000 ML IV SCH ×3 (01:30→11:00)
[2020-10-01] MEDS ORDERED: Piperacillin/Tazobactam 4.5 GM in Sodium Chloride 0.9% 100 ML IVPB SCH (03:00)
[2020-10-01] MEDS ORDERED: Vancomycin 1.5 GRAM/300 ML BAG 1.5 GM in Premix Bag 1 BAG IVPB SCH ×2 (03:30→15:00)
[2020-10-01 03:36] LABS: ALT (SGPT) 9 U/L (8-55); AST (SGOT) 10 U/L (5-34); Alkaline Phosphatase 46 U/L (40-110); Anion Gap 13 mmol/L (10-20); BUN (Urea Nitrogen) 14 mg/dL (9.8-20.1); Bilirubin, Total 0.4 mg/dL (0.2-1.2); Calc. Creatinine Clearance 83 mL/min (70-130); Calcium 7.1 mg/dL (7.8-10.44); Carbon Dioxide 21 mmol/L (23-31); Chloride 106 mmol/L (98-107); Globulin 2.3 g/dL (2.4-3.5); Glucose 222 mg/dL (80-115); Potassium 3.8 mmol/L (3.5-5.1); Protein, Total 4.3 g/dL (5.8-8.1); Sodium 136 mmol/L (136-145)
[2020-10-01 04:47] LABS: Mean Corpuscular HGB CONC 31.1 g/dL (32.0-36.0); Mean Corpuscular Hemoglobin 25.4 pg (27.0-31.0); Mean Corpuscular Volume 81.6 fL (78.0-98.0); Mean Platelet Volume 9.8 fL (7.4-10.4); Platelet Count 235 thou/uL (130-400); RBC Distribution Width 20.9 % (11.5-14.5); Red Blood Cell (RBC) Count 1.99 mill/uL (4.20-5.40); White Blood Cell (WBC) Count 22.6 thou/uL (4.8-10.8)
[2020-10-01 04:56] LABS: MDiff Complete? YES
[2020-10-01 04:57] LABS: Anisocytosis SLIGHT = 6-15 cells (100X) (0-5/hpf); Band 4 % (5-11); Lymphocytes 6 % (21-51); Microcytosis SLIGHT = 6-15 cells (100X) (0-5/hpf); Monocytes 3 % (0-10); Myelocyte 1 % (0-0); Neutrophil 86 % (42-75); Polychromasia SLIGHT = 2-3 cells (100X) (0-2/hpf)
[2020-10-01] MEDS: HumaLOG 300 UNITS/3 ML VIAL SC PRN ×4 (06:35→21:05)
[2020-10-01 06:40] LABS: INR-International Normal Ratio 1.4; PTT 43.4 sec (22.9-36.1); Prothrombin Time 17.3 sec (12.0-14.7)
[2020-10-01 06:58] LABS: Hemoglobin 5.8 g/dL (12.0-16.0)
[2020-10-01 07:38] LABS: Lactic Acid 4.7 mmol/L (0.5-2.2)
[2020-10-01] MEDS: Morphine 4 MG/ML VIAL SLOW IVP PRN ×3 (09:09→19:20)
[2020-10-01] MEDS: Pantoprazole 40 MG VIAL IVP SCH ×2 (09:10→21:04)
[2020-10-01] MEDS: Lantus 1000 UNITS/10 ML VIAL SC SCH ×2 (09:25→21:16)
[2020-10-01] MEDS: Gabapentin 300 MG CAP PO SCH ×2 (09:26→21:04)
[2020-10-01 09:57] LABS: Mean Corpuscular HGB CONC 32.5 g/dL (32.0-36.0); Mean Corpuscular Hemoglobin 28.1 pg (27.0-31.0); Mean Corpuscular Volume 86.6 fL (78.0-98.0); Mean Platelet Volume 9.7 fL (7.4-10.4); Platelet Count 213 thou/uL (130-400); RBC Distribution Width 18.4 % (11.5-14.5); Red Blood Cell (RBC) Count 2.86 mill/uL (4.20-5.40); White Blood Cell (WBC) Count 27.4 thou/uL (4.8-10.8)
[2020-10-01 10:24] LABS: Band 12 % (5-11); Lymphocytes 7 % (21-51); MDiff Complete? YES; Monocytes 1 % (0-10); Neutrophil 80 % (42-75)
[2020-10-01 10:28] LABS: Lactic Acid 5.9 mmol/L (0.5-2.2)
[2020-10-01] MEDS: Piperacillin/Tazobactam 4.5 GM in Sodium Chloride 0.9% 100 ML IVPB SCH ×2 (11:05→19:48)
[2020-10-01] MEDS: Norepinephrine 8 MG/0.9% NS 250 ML IVPB SCH ×2 (11:06→17:58)
[2020-10-01] MEDS ORDERED: Dextrose 5% in Water 1,000 ML IV PRN (14:14)
[2020-10-01] MEDS ORDERED: Dextrose 50% Abboject 50 ML SYRINGE SLOW IVP PRN (14:14)
[2020-10-01 14:33] LABS: Actual Bicarbonate (HCO3a) 14.6 mEq/L (22-28); Base Excess (BEa) -8.6 mEq/L (-2.0 to +3.0); Calcium, Ionized (arterial) 0.96 mmol/L (1.12-1.30); Carboxyhemoglobin (COHb) 0.7 gm% (0.0-3.0); Hemoglobin (Hb) 10.7 g/dL (12.0-16.0); O2 Tension (PaO2), arterial 74.8 mmHg (> 80.0)
[2020-10-01 14:36] LABS: ALV-art Gradient 45.055 mmHg (0-20); CO2 Tension 23.9 mmHg (35.0-45.0); Puncture Site RBA
[2020-10-01 16:39] LABS: Mean Corpuscular HGB CONC 32.6 g/dL (32.0-36.0); Mean Corpuscular Hemoglobin 28.9 pg (27.0-31.0); Mean Corpuscular Volume 88.6 fL (78.0-98.0); Mean Platelet Volume 9.4 fL (7.4-10.4); Platelet Count 139 thou/uL (130-400); Red Blood Cell (RBC) Count 2.77 mill/uL (4.20-5.40)
[2020-10-01 16:58] LABS: Lactic Acid 5.8 mmol/L (0.5-2.2)
[2020-10-01] MEDS: cefTRIAXone\\ROCEPHIN 2 GM in Sodium Chloride 0.9% 100 ML IVPB SCH (17:52)
[2020-10-01] MEDS: Ondansetron PF 4 MG/2 ML Vial IVP PRN (18:36)
[2020-10-02] MEDS: Morphine 4 MG/ML VIAL SLOW IVP PRN (04:34)
[2020-10-02 05:42] LABS: Hemoglobin 8.9 g/dL (12.0-16.0); Mean Corpuscular HGB CONC 32.9 g/dL (32.0-36.0); Mean Corpuscular Hemoglobin 28.7 pg (27.0-31.0); Mean Corpuscular Volume 87.2 fL (78.0-98.0); Mean Platelet Volume 9.4 fL (7.4-10.4); Platelet Count 143 thou/uL (130-400); RBC Distribution Width 16.1 % (11.5-14.5); Red Blood Cell (RBC) Count 3.09 mill/uL (4.20-5.40); White Blood Cell (WBC) Count 20.4 thou/uL (4.8-10.8)
[2020-10-02] MEDS: Norepinephrine 8 MG/0.9% NS 250 ML IVPB SCH (07:04)
[2020-10-02 09:05] LABS: Hemoglobin 8.3 g/dL (12.0-16.0); Mean Corpuscular HGB CONC 33.9 g/dL (32.0-36.0); Mean Corpuscular Hemoglobin 29.3 pg (27.0-31.0); Mean Corpuscular Volume 86.3 fL (78.0-98.0); Platelet Count 123 thou/uL (130-400); RBC Distribution Width 16.3 % (11.5-14.5); Red Blood Cell (RBC) Count 2.83 mill/uL (4.20-5.40); White Blood Cell (WBC) Count 19.7 thou/uL (4.8-10.8)
[2020-10-02] MEDS: Gabapentin 300 MG CAP PO SCH ×2 (09:12→23:38)
[2020-10-02] MEDS: Pantoprazole 40 MG VIAL IVP SCH ×2 (09:13→22:01)
[2020-10-02 09:23] LABS: Lactic Acid 0.8 mmol/L (0.5-2.2)
[2020-10-02 09:37] LABS: Anion Gap 15 mmol/L (10-20); BUN (Urea Nitrogen) 23 mg/dL (9.8-20.1); Calc. Creatinine Clearance 65 mL/min (70-130); Calcium 7.3 mg/dL (7.8-10.44); Carbon Dioxide 19 mmol/L (23-31); Chloride 106 mmol/L (98-107); Glucose 244 mg/dL (80-115); Potassium 3.7 mmol/L (3.5-5.1); Sodium 136 mmol/L (136-145)
[2020-10-02] MEDS: Lantus 1000 UNITS/10 ML VIAL SC SCH ×2 (09:57)
[2020-10-02] MEDS: HumaLOG 300 UNITS/3 ML VIAL SC PRN ×2 (11:13→16:02)
[2020-10-02] MEDS: HYDROcodone/Acetaminophen 5/325 mg Tablet PO PRN (12:29)
[2020-10-02] MEDS: Fentanyl 100 MCG/2 ML VIAL SLOW IVP PRN ×3 (13:06→21:20)
[2020-10-02] MEDS ORDERED: Iopamidol-370 76% 500 ML 1 ML ONE (15:05)
[2020-10-02 18:01] LABS: Hemoglobin 7.3 g/dL (12.0-16.0); Mean Corpuscular HGB CONC 34.1 g/dL (32.0-36.0); Mean Corpuscular Hemoglobin 29.7 pg (27.0-31.0); Mean Corpuscular Volume 87.1 fL (78.0-98.0); Mean Platelet Volume 9.1 fL (7.4-10.4); Platelet Count 97 thou/uL (130-400); RBC Distribution Width 16.6 % (11.5-14.5); Red Blood Cell (RBC) Count 2.45 mill/uL (4.20-5.40); White Blood Cell (WBC) Count 13.6 thou/uL (4.8-10.8)
[2020-10-02] MEDS: Sodium Chloride 0.9% 1,000 ML IV SCH (18:09)
[2020-10-02] MEDS: cefTRIAXone\\ROCEPHIN 2 GM in Sodium Chloride 0.9% 100 ML IVPB SCH (18:11)
[2020-10-02 18:27] LABS: Anion Gap 10 mmol/L (10-20); BUN (Urea Nitrogen) 22 mg/dL (9.8-20.1); Calc. Creatinine Clearance 76 mL/min (70-130); Calcium 7.4 mg/dL (7.8-10.44); Carbon Dioxide 23 mmol/L (23-31); Chloride 105 mmol/L (98-107); Glucose 222 mg/dL (80-115); Potassium 3.4 mmol/L (3.5-5.1); Sodium 135 mmol/L (136-145)
[2020-10-02] MEDS ORDERED: predniSONE 50 MG TAB PO SCH (19:00)
[2020-10-02] MEDS ORDERED: Potassium Chloride 20 MEQ TAB PO SCH (19:15)
[2020-10-02] MEDS ORDERED: Electrolyte Replacement Protocol FS PRN (19:15)
[2020-10-02] MEDS ORDERED: diphenhydrAMINE 50 MG/ML VIAL IVP SCH (21:30)
[2020-10-02] MEDS ORDERED: methylPREDNISolone Sod Succ/PF 125 MG/2 ML VIAL IVP SCH (21:30)
[2020-10-02] MEDS ORDERED: Famotidine/PF 20 mg/2ml Vial IVPB SCH (21:30)
[2020-10-03] MEDS: Lantus 1000 UNITS/10 ML VIAL SC SCH ×3 (00:32→20:33)
[2020-10-03] MEDS ORDERED: predniSONE 50 MG TAB PO SCH ×2 (01:00→07:00)
[2020-10-03 04:41] LABS: Anion Gap 10 mmol/L (10-20); BUN (Urea Nitrogen) 19 mg/dL (9.8-20.1); Calc. Creatinine Clearance 99 mL/min (70-130); Calcium 7.8 mg/dL (7.8-10.44); Carbon Dioxide 24 mmol/L (23-31); Chloride 106 mmol/L (98-107); Glucose 199 mg/dL (80-115); Potassium 3.9 mmol/L (3.5-5.1); Sodium 136 mmol/L (136-145)
[2020-10-03 04:51] LABS: #Lymphocytes 0.5 thou/uL (1.20-3.40); #Monocytes 0.2 thou/uL (0.11-0.59); #Neutrophils 14.8 thou/uL (1.40-6.50); %Basophils 0.1 % (0.0-1.0); %Eosinophils 0.3 % (0.0-10.0); %Monocytes 1.4 % (0.0-10.0); %Neutrophils 95.2 % (42.0-75.0); Hemoglobin 9.4 g/dL (12.0-16.0); Mean Corpuscular HGB CONC 33.7 g/dL (32.0-36.0); Mean Corpuscular Hemoglobin 30.1 pg (27.0-31.0); Mean Corpuscular Volume 89.5 fL (78.0-98.0); Mean Platelet Volume 9.3 fL (7.4-10.4); Platelet Count 104 thou/uL (130-400); RBC Distribution Width 17.2 % (11.5-14.5); White Blood Cell (WBC) Count 15.5 thou/uL (4.8-10.8)
[2020-10-03] MEDS: Fentanyl 100 MCG/2 ML VIAL SLOW IVP PRN ×2 (05:33→15:10)
[2020-10-03] MEDS: HumaLOG 300 UNITS/3 ML VIAL SC PRN ×4 (06:42→20:32)
[2020-10-03] MEDS ORDERED: diphenhydrAMINE 50 MG/ML VIAL IVP SCH (07:00)
[2020-10-03] MEDS: Sodium Chloride 0.9% 1,000 ML IV SCH ×2 (08:00→23:21)
[2020-10-03] MEDS: HYDROcodone/Acetaminophen 5/325 mg Tablet PO PRN (09:09)
[2020-10-03] MEDS: Pantoprazole 40 MG VIAL IVP SCH ×2 (09:10→20:08)
[2020-10-03] MEDS: Metoprolol Tartrate 25 MG TAB PO SCH ×2 (09:10→20:07)
[2020-10-03] MEDS: Gabapentin 300 MG CAP PO SCH ×2 (09:10→20:07)
[2020-10-03] MEDS: cefTRIAXone\\ROCEPHIN 2 GM in Sodium Chloride 0.9% 100 ML IVPB SCH (17:36)
[2020-10-04 04:38] LABS: #Lymphocytes 0.8 thou/uL (1.20-3.40); #Neutrophils 10.6 thou/uL (1.40-6.50); %Basophils 0.2 % (0.0-1.0); %Eosinophils 0.3 % (0.0-10.0); %Lymphocytes 6.6 % (21.0-51.0); %Monocytes 8.3 % (0.0-10.0); %Neutrophils 84.7 % (42.0-75.0); Hemoglobin 8.9 g/dL (12.0-16.0); Mean Corpuscular HGB CONC 32.4 g/dL (32.0-36.0); Mean Corpuscular Hemoglobin 29.5 pg (27.0-31.0); Mean Corpuscular Volume 90.9 fL (78.0-98.0); Mean Platelet Volume 8.5 fL (7.4-10.4); Platelet Count 128 thou/uL (130-400); RBC Distribution Width 17.7 % (11.5-14.5); Red Blood Cell (RBC) Count 3.01 mill/uL (4.20-5.40); White Blood Cell (WBC) Count 12.5 thou/uL (4.8-10.8)
[2020-10-04 05:04] LABS: Anion Gap 11 mmol/L (10-20); BUN (Urea Nitrogen) 18 mg/dL (9.8-20.1); Calc. Creatinine Clearance 109 mL/min (70-130); Calcium 7.7 mg/dL (7.8-10.44); Carbon Dioxide 23 mmol/L (23-31); Chloride 107 mmol/L (98-107); Glucose 162 mg/dL (80-115); Sodium 137 mmol/L (136-145)
[2020-10-04] MEDS: HYDROcodone/Acetaminophen 5/325 mg Tablet PO PRN ×2 (06:19→14:49)
[2020-10-04] MEDS: Gabapentin 300 MG CAP PO SCH ×2 (09:27→20:16)
[2020-10-04] MEDS: Metoprolol Tartrate 25 MG TAB PO SCH (09:27)
[2020-10-04] MEDS: Lantus 1000 UNITS/10 ML VIAL SC SCH ×2 (09:27→20:05)
[2020-10-04] MEDS: Sodium Chloride 0.9% 1,000 ML IV SCH (09:27)
[2020-10-04] MEDS: Pantoprazole 40 MG VIAL IVP SCH (09:28)
[2020-10-04] MEDS: HumaLOG 300 UNITS/3 ML VIAL SC PRN ×2 (11:16→17:14)
[2020-10-04] MEDS: cefTRIAXone\\ROCEPHIN 2 GM in Sodium Chloride 0.9% 100 ML IVPB SCH (17:15)
[2020-10-04] MEDS ORDERED: Furosemide 20 MG/2 ML VIAL SLOW IVP SCH (18:00)
[2020-10-04] MEDS: Metoprolol Tartrate 50 MG TAB PO SCH (20:16)
[2020-10-05] MEDS: HYDROcodone/Acetaminophen 5/325 mg Tablet PO PRN ×3 (00:41→21:15)
[2020-10-05 04:47] LABS: #Basophils 0.1 thou/uL (0.0-0.2); #Eosinphils 0.3 thou/uL (0.0-0.7); #Monocytes 0.7 thou/uL (0.11-0.59); #Neutrophils 8.4 thou/uL (1.40-6.50); %Basophils 0.5 % (0.0-1.0); %Eosinophils 3.1 % (0.0-10.0); %Lymphocytes 9.4 % (21.0-51.0); %Monocytes 6.9 % (0.0-10.0); %Neutrophils 80.1 % (42.0-75.0); Hemoglobin 9.2 g/dL (12.0-16.0); Mean Corpuscular HGB CONC 32.8 g/dL (32.0-36.0); Mean Corpuscular Volume 91.3 fL (78.0-98.0); Mean Platelet Volume 8.3 fL (7.4-10.4); Platelet Count 149 thou/uL (130-400); RBC Distribution Width 17.9 % (11.5-14.5); Red Blood Cell (RBC) Count 3.07 mill/uL (4.20-5.40); White Blood Cell (WBC) Count 10.5 thou/uL (4.8-10.8)
[2020-10-05 05:06] LABS: Anion Gap 9 mmol/L (10-20); BUN (Urea Nitrogen) 15 mg/dL (9.8-20.1); Calc. Creatinine Clearance 125 mL/min (70-130); Calcium 7.7 mg/dL (7.8-10.44); Carbon Dioxide 25 mmol/L (23-31); Chloride 106 mmol/L (98-107); Glucose 123 mg/dL (80-115); Potassium 3.8 mmol/L (3.5-5.1); Sodium 136 mmol/L (136-145)
[2020-10-05] MEDS: Gabapentin 300 MG CAP PO SCH ×2 (09:29→21:16)
[2020-10-05] MEDS: Metoprolol Tartrate 50 MG TAB PO SCH ×2 (09:29→21:16)
[2020-10-05] MEDS: Lantus 1000 UNITS/10 ML VIAL SC SCH ×2 (09:29→21:13)
[2020-10-05] MEDS ORDERED: Furosemide 20 MG/2 ML VIAL SLOW IVP SCH (10:00)
[2020-10-05] MEDS ORDERED: Potassium Chloride 20 MEQ TAB PO SCH (10:00)
[2020-10-05] MEDS: Senokot S 8.6-50 MG TAB PO SCH ×3 (12:39→21:16)
[2020-10-05] MEDS ORDERED: Ketorolac Tromethamine 30 MG/ML VIAL IVP SCH (14:00)
[2020-10-05] MEDS: cefTRIAXone\\ROCEPHIN 2 GM in Sodium Chloride 0.9% 100 ML IVPB SCH (17:36)
[2020-10-05] MEDS: HumaLOG 300 UNITS/3 ML VIAL SC PRN (17:36)
[2020-10-06 05:09] LABS: #Eosinphils 0.3 thou/uL (0.0-0.7); #Lymphocytes 0.9 thou/uL (1.20-3.40); #Monocytes 0.7 thou/uL (0.11-0.59); #Neutrophils 6.5 thou/uL (1.40-6.50); %Basophils 0.2 % (0.0-1.0); %Eosinophils 4.1 % (0.0-10.0); %Lymphocytes 10.1 % (21.0-51.0); %Monocytes 8.7 % (0.0-10.0); Hemoglobin 9.5 g/dL (12.0-16.0); Mean Corpuscular HGB CONC 33.3 g/dL (32.0-36.0); Mean Corpuscular Hemoglobin 30.8 pg (27.0-31.0); Mean Corpuscular Volume 92.4 fL (78.0-98.0); Mean Platelet Volume 8.2 fL (7.4-10.4); Platelet Count 150 thou/uL (130-400); RBC Distribution Width 17.8 % (11.5-14.5); Red Blood Cell (RBC) Count 3.08 mill/uL (4.20-5.40); White Blood Cell (WBC) Count 8.5 thou/uL (4.8-10.8)
[2020-10-06 05:26] LABS: Anion Gap 8 mmol/L (10-20); BUN (Urea Nitrogen) 13 mg/dL (9.8-20.1); Calc. Creatinine Clearance 119 mL/min (70-130); Calcium 7.8 mg/dL (7.8-10.44); Carbon Dioxide 28 mmol/L (23-31); Chloride 105 mmol/L (98-107); Glucose 139 mg/dL (80-115); Potassium 3.9 mmol/L (3.5-5.1); Sodium 137 mmol/L (136-145)
[2020-10-06] MEDS: HYDROcodone/Acetaminophen 5/325 mg Tablet PO PRN ×2 (08:04→20:16)
[2020-10-06] MEDS: Lantus 1000 UNITS/10 ML VIAL SC SCH ×2 (08:05→20:41)
[2020-10-06] MEDS: Senokot S 8.6-50 MG TAB PO SCH ×2 (08:05→20:12)
[2020-10-06] MEDS: Furosemide 20 MG TAB PO SCH (08:05)
[2020-10-06] MEDS: Metoprolol Tartrate 50 MG TAB PO SCH ×2 (08:05→20:14)
[2020-10-06] MEDS: Gabapentin 300 MG CAP PO SCH ×2 (08:05→20:13)
[2020-10-06] MEDS: HumaLOG 300 UNITS/3 ML VIAL SC PRN (11:14)
[2020-10-06] MEDS ORDERED: Nystatin Powder 15 GM BOT TOP SCH (13:45)
[2020-10-06 15:11] VITALS: BMI 36.1
[2020-10-06] MEDS: cefTRIAXone\\ROCEPHIN 2 GM in Sodium Chloride 0.9% 100 ML IVPB SCH (17:13)
[2020-10-06] MEDS: Fentanyl 100 MCG/2 ML VIAL SLOW IVP PRN (20:39)
[2020-10-07] MEDS: HYDROcodone/Acetaminophen 5/325 mg Tablet PO PRN ×3 (01:45→18:06)
[2020-10-07 05:03] LABS: #Eosinphils 0.3 thou/uL (0.0-0.7); #Lymphocytes 0.8 thou/uL (1.20-3.40); #Monocytes 0.7 thou/uL (0.11-0.59); #Neutrophils 9.5 thou/uL (1.40-6.50); %Eosinophils 2.4 % (0.0-10.0); %Lymphocytes 7.3 % (21.0-51.0); %Monocytes 6.2 % (0.0-10.0); %Neutrophils 84.1 % (42.0-75.0); Mean Corpuscular Hemoglobin 29.6 pg (27.0-31.0); Mean Corpuscular Volume 92.3 fL (78.0-98.0); Mean Platelet Volume 8.1 fL (7.4-10.4); Platelet Count 165 thou/uL (130-400); RBC Distribution Width 18.1 % (11.5-14.5); White Blood Cell (WBC) Count 11.3 thou/uL (4.8-10.8)
[2020-10-07 05:24] LABS: Anion Gap 11 mmol/L (10-20); BUN (Urea Nitrogen) 11 mg/dL (9.8-20.1); Calc. Creatinine Clearance 144 mL/min (70-130); Calcium 8.1 mg/dL (7.8-10.44); Carbon Dioxide 27 mmol/L (23-31); Chloride 102 mmol/L (98-107); Glucose 79 mg/dL (80-115); Potassium 3.9 mmol/L (3.5-5.1); Sodium 136 mmol/L (136-145)
[2020-10-07] MEDS: Metoprolol Tartrate 50 MG TAB PO SCH ×2 (09:27→20:48)
[2020-10-07] MEDS: Furosemide 20 MG TAB PO SCH (09:27)
[2020-10-07] MEDS: Senokot S 8.6-50 MG TAB PO SCH ×2 (09:28→20:50)
[2020-10-07] MEDS: Gabapentin 300 MG CAP PO SCH ×2 (09:28→20:49)
[2020-10-07] MEDS: Nystatin Powder 15 GM BOT TOP SCH (09:29)
[2020-10-07] MEDS ORDERED: Potassium Chloride 10 MEQ TAB PO SCH (09:30)
[2020-10-07] MEDS ORDERED: Furosemide 20 MG TAB PO SCH (09:30)
[2020-10-07] MEDS: Lantus 1000 UNITS/10 ML VIAL SC SCH ×2 (09:30→20:47)
[2020-10-07] MEDS: Loperamide HCl 2 MG CAP PO PRN (16:28)
[2020-10-07] MEDS: cefTRIAXone\\ROCEPHIN 2 GM in Sodium Chloride 0.9% 100 ML IVPB SCH (18:06)
[2020-10-07] MEDS: Fentanyl 100 MCG/2 ML VIAL SLOW IVP PRN (20:47)
[2020-10-08] MEDS: HYDROcodone/Acetaminophen 5/325 mg Tablet PO PRN ×4 (03:08→22:05)
[2020-10-08 04:31] LABS: #Eosinphils 0.4 thou/uL (0.0-0.7); #Monocytes 0.6 thou/uL (0.11-0.59); #Neutrophils 8.6 thou/uL (1.40-6.50); %Eosinophils 3.4 % (0.0-10.0); %Lymphocytes 9.7 % (21.0-51.0); %Monocytes 5.7 % (0.0-10.0); %Neutrophils 81.2 % (42.0-75.0); Hemoglobin 9.7 g/dL (12.0-16.0); Mean Corpuscular HGB CONC 30.3 g/dL (32.0-36.0); Mean Corpuscular Hemoglobin 28.1 pg (27.0-31.0); Mean Corpuscular Volume 92.8 fL (78.0-98.0); Mean Platelet Volume 8.2 fL (7.4-10.4); Platelet Count 180 thou/uL (130-400); RBC Distribution Width 18.3 % (11.5-14.5); Red Blood Cell (RBC) Count 3.44 mill/uL (4.20-5.40); White Blood Cell (WBC) Count 10.6 thou/uL (4.8-10.8)
[2020-10-08 04:52] LABS: Anion Gap 10 mmol/L (10-20); BUN (Urea Nitrogen) 14 mg/dL (9.8-20.1); Calc. Creatinine Clearance 121 mL/min (70-130); Calcium 8.3 mg/dL (7.8-10.44); Carbon Dioxide 30 mmol/L (23-31); Chloride 101 mmol/L (98-107); Glucose 99 mg/dL (80-115); Sodium 137 mmol/L (136-145)
[2020-10-08] MEDS ORDERED: Fentanyl 100 MCG/2 ML VIAL ONE ×2 (06:39→07:29)
[2020-10-08] MEDS ORDERED: Propofol 1,000 MG/100 ML VIAL IV ONE (06:39)
[2020-10-08] MEDS ORDERED: Lidocaine 1% (PF) 30 ML VIAL ONE (06:39)
[2020-10-08] MEDS ORDERED: EPINEPHrine 1 MG/ML AMP ONE (06:53)
[2020-10-08] MEDS ORDERED: PHENYLEPHRINE-NS 100 MCG/ML 10 ML SYRINGE ONE (07:49)
[2020-10-08] MEDS ORDERED: Lidocaine 1% PF 5 ML VIAL ONE (07:49)
[2020-10-08] MEDS ORDERED: Dexamethasone 20 MG/5 ML VIAL ONE (07:49)
[2020-10-08] MEDS ORDERED: Rocuronium Bromide 10 MG/ML (10ML VIAL) ONE (07:49)
[2020-10-08] MEDS ORDERED: Glycopyrrolate 0.2 MG/ML 5 ML SYRINGE ONE (07:49)
[2020-10-08] MEDS ORDERED: Ondansetron PF 4 MG/2 ML Vial ONE (07:49)
[2020-10-08] MEDS ORDERED: ePHEDrine Sulfate 50 MG/10 ML VIAL ONE (07:49)
[2020-10-08] MEDS ORDERED: PROPOFOL 200 MG/20 ML VIAL ONE (07:49)
[2020-10-08] MEDS: Furosemide 40 MG TAB PO SCH (09:47)
[2020-10-08] MEDS: Potassium Chloride 10 MEQ TAB PO SCH (09:47)
[2020-10-08] MEDS: Metoprolol Tartrate 50 MG TAB PO SCH ×2 (09:48→22:05)
[2020-10-08] MEDS: Gabapentin 300 MG CAP PO SCH ×2 (09:48→22:06)
[2020-10-08] MEDS: Senokot S 8.6-50 MG TAB PO SCH ×2 (09:49→22:06)
[2020-10-08] MEDS: Nystatin Powder 15 GM BOT TOP SCH (09:49)
[2020-10-08] MEDS: Lantus 1000 UNITS/10 ML VIAL SC SCH ×2 (09:49→22:11)
[2020-10-08] MEDS: HumaLOG 300 UNITS/3 ML VIAL SC PRN ×3 (12:22→22:13)
[2020-10-08] MEDS: Acetaminophen 325 MG TAB PO PRN (12:29)
[2020-10-08] MEDS: cefTRIAXone\\ROCEPHIN 2 GM in Sodium Chloride 0.9% 100 ML IVPB SCH (17:01)
[2020-10-09] MEDS: Ondansetron PF 4 MG/2 ML Vial IVP PRN (01:28)
[2020-10-09 04:39] LABS: #Eosinphils 0.1 thou/uL (0.0-0.7); #Lymphocytes 0.7 thou/uL (1.20-3.40); #Monocytes 0.6 thou/uL (0.11-0.59); #Neutrophils 7.1 thou/uL (1.40-6.50); %Basophils 0.1 % (0.0-1.0); %Eosinophils 0.7 % (0.0-10.0); %Lymphocytes 8.1 % (21.0-51.0); %Monocytes 6.6 % (0.0-10.0); %Neutrophils 84.5 % (42.0-75.0); Hemoglobin 9.2 g/dL (12.0-16.0); Mean Corpuscular HGB CONC 31.6 g/dL (32.0-36.0); Mean Corpuscular Hemoglobin 29.2 pg (27.0-31.0); Mean Corpuscular Volume 92.5 fL (78.0-98.0); Mean Platelet Volume 7.9 fL (7.4-10.4); Platelet Count 188 thou/uL (130-400); Red Blood Cell (RBC) Count 3.16 mill/uL (4.20-5.40); White Blood Cell (WBC) Count 8.5 thou/uL (4.8-10.8)
[2020-10-09 05:01] LABS: Anion Gap 8 mmol/L (10-20); BUN (Urea Nitrogen) 17 mg/dL (9.8-20.1); Calc. Creatinine Clearance 118 mL/min (70-130); Calcium 8.2 mg/dL (7.8-10.44); Carbon Dioxide 31 mmol/L (23-31); Chloride 100 mmol/L (98-107); Glucose 170 mg/dL (80-115); Potassium 4.2 mmol/L (3.5-5.1); Sodium 135 mmol/L (136-145)
[2020-10-09] MEDS: HYDROcodone/Acetaminophen 5/325 mg Tablet PO PRN ×2 (05:39→16:40)
[2020-10-09] MEDS: Gabapentin 300 MG CAP PO SCH ×2 (08:53→20:09)
[2020-10-09] MEDS: Potassium Chloride 10 MEQ TAB PO SCH (08:53)
[2020-10-09] MEDS: Metoprolol Tartrate 50 MG TAB PO SCH ×2 (08:54→20:09)
[2020-10-09] MEDS: Furosemide 40 MG TAB PO SCH (08:54)
[2020-10-09] MEDS: Lantus 1000 UNITS/10 ML VIAL SC SCH ×2 (08:55→20:53)
[2020-10-09] MEDS: Senokot S 8.6-50 MG TAB PO SCH ×2 (08:57→20:09)
[2020-10-09] MEDS: Nystatin Powder 15 GM BOT TOP SCH (08:57)
[2020-10-09] MEDS: cefTRIAXone\\ROCEPHIN 2 GM in Sodium Chloride 0.9% 100 ML IVPB SCH (16:50)
[2020-10-09] MEDS: Fentanyl 100 MCG/2 ML VIAL SLOW IVP PRN (20:08)
[2020-10-10] MEDS: Fentanyl 100 MCG/2 ML VIAL SLOW IVP PRN ×2 (03:08→08:59)
[2020-10-10] MEDS: Senokot S 8.6-50 MG TAB PO SCH (08:56)
[2020-10-10] MEDS: Furosemide 40 MG TAB PO SCH (08:56)
[2020-10-10] MEDS: Potassium Chloride 10 MEQ TAB PO SCH (08:56)
[2020-10-10] MEDS: Metoprolol Tartrate 50 MG TAB PO SCH (08:57)
[2020-10-10] MEDS: Gabapentin 300 MG CAP PO SCH (08:57)
[2020-10-10] MEDS: Nystatin Powder 15 GM BOT TOP SCH (08:59)
[2020-10-10] MEDS: Lantus 1000 UNITS/10 ML VIAL SC SCH (09:02)
[2020-10-10] MEDS ORDERED: Saccharomyces boulardii 250 MG CAP PO SCH (11:45)
[2020-10-10] MEDS: HYDROcodone/Acetaminophen 5/325 mg Tablet PO PRN (11:54)
[2020-10-10] MEDS: HumaLOG 300 UNITS/3 ML VIAL SC PRN ×2 (11:55→16:48)
[2020-10-10 15:25] VITALS: TEMP 98.8
[2020-10-10 15:47] VITALS: BP 144/69
[2020-10-10] MEDS ORDERED: Fentanyl 100 MCG/2 ML VIAL SLOW IVP PRN (17:49)
[2020-10-10] MEDS ORDERED: cefTRIAXone\\ROCEPHIN 2 GM in Sodium Chloride 0.9% 100 ML IVPB SCH (18:00)
[2020-10-11] MEDS ORDERED: Saccharomyces boulardii 250 MG CAP PO SCH (09:00)
== END 2020-10-10 19:40 | disposition home health service (06) | DRG 853 ==
LOC: ERS 11:21 → T4-A 14:49 → 2NO 23:30 → 2SW 09-21 03:19 → CCU 10-01 04:01 → 2NO 10-03 09:01
PROVIDERS: ADMIT Family Medicine; ATTEND Family Medicine
PROC: 02HV33Z Insertion of Infusion Device into Superior Vena Cava, Percutaneous Approach (ICD-10-PCS; principal; 2020-09-20)
PROC: 8E0ZXY6 Isolation (ICD-10-PCS; 2020-09-20)
PROC: 30233N1 Transfusion of Nonautologous Red Blood Cells into Peripheral Vein, Percutaneous Approach (ICD-10-PCS; 2020-09-21)
PROC: B24BZZ4 Ultrasonography of Heart with Aorta, Transesophageal (ICD-10-PCS; 2020-09-30)
PROC: 30233K1 Transfusion of Nonautologous Frozen Plasma into Peripheral Vein, Percutaneous Approach (ICD-10-PCS; 2020-10-01)
PROC: 3E033XZ Introduction of Vasopressor into Peripheral Vein, Percutaneous Approach (ICD-10-PCS; 2020-10-01)
PROC: 02HV33Z Insertion of Infusion Device into Superior Vena Cava, Percutaneous Approach (ICD-10-PCS; 2020-10-06)
PROC: 0BBC8ZX Excision of Right Upper Lung Lobe, Via Natural or Artificial Opening Endoscopic, Diagnostic (ICD-10-PCS; 2020-10-08)
PROC: 0BDC8ZX Extraction of Right Upper Lung Lobe, Via Natural or Artificial Opening Endoscopic, Diagnostic (ICD-10-PCS; 2020-10-08)
PROC: 0B9C8ZZ Drainage of Right Upper Lung Lobe, Via Natural or Artificial Opening Endoscopic (ICD-10-PCS; 2020-10-08)
DX: A40.1 Sepsis due to streptococcus, group B (principal); K66.1 Hemoperitoneum; J96.01 Acute respiratory failure with hypoxia; U07.1 COVID-19; J12.82 Pneumonia due to coronavirus disease 2019; R57.8 Other shock; I33.0 Acute and subacute infective endocarditis; D62 Acute posthemorrhagic anemia; N39.0 Urinary tract infection, site not specified; I47.1 Supraventricular tachycardia; N17.9 Acute kidney failure, unspecified; K86.2 Cyst of pancreas; C34.11 Malignant neoplasm of upper lobe, right bronchus or lung; Z51.5 Encounter for palliative care; B96.1 Klebsiella pneumoniae [K. pneumoniae] as the cause of diseases classified elsewhere; I10 Essential (primary) hypertension; I48.0 Paroxysmal atrial fibrillation; E87.6 Hypokalemia; E11.65 Type 2 diabetes mellitus with hyperglycemia; D18.09 Hemangioma of other sites; K76.89 Other specified diseases of liver; N28.1 Cyst of kidney, acquired; E27.9 Disorder of adrenal gland, unspecified; I08.1 Rheumatic disorders of both mitral and tricuspid valves; E78.5 Hyperlipidemia, unspecified; Z79.4 Long term (current) use of insulin; Z91.041 Radiographic dye allergy status; Z90.49 Acquired absence of other specified parts of digestive tract
CPT/HCPCS: 36415; 36416; 36430; 36569; 36600; 70450; 71045; 71260; 74018; 74176; 74177; 74183; 76000; 80048; 80053; 80202; 81001; 82553; 82805; 83605; 83880; 84145; 84484; 85025; 85027; 85610; 85730; 86140; 86850; 86900; 86901; 87040; 87077; 87086; 87149; 87186; 88112; 88305; 93005; 93010; 93306; 93312; 94640; 96365; 96375; A9579; C1751; C9113; J0171; J0360; J0456; J0696; J1100; J1200; J1644; J1650; J1815; J1885; J1940; J2001; J2270; J2405; J2543; J2550; J2704; J2930; J3010; J3370; J3490; J7030; J7050; J7512; J7620; J8540; P9016; P9059; Q9967; S0028; U0002

== ENCOUNTER 2020-11-02 11:09 | Emergency (ER) | payer MEDICARE ==
[2020-11-02] MEDS ORDERED: Fentanyl 100 MCG/2 ML VIAL ONE (12:49)
== END 2020-11-02 14:37 | disposition home or self-care (01) ==
LOC: ERS 11:09
DX: B02.9 Zoster without complications (principal); Z79.899 Other long term (current) drug therapy; Z79.4 Long term (current) use of insulin; E11.9 Type 2 diabetes mellitus without complications; E78.5 Hyperlipidemia, unspecified; E78.00 Pure hypercholesterolemia, unspecified; I10 Essential (primary) hypertension
CPT/HCPCS: 94760; 96374; J3010

== ENCOUNTER 2020-11-06 07:44 | Outpatient (CLI) | payer MEDICARE | END 2020-11-06 07:45 | disposition home or self-care (01) | LOC: PET 07:44 | PROVIDERS: ATTEND Internal Medicine Hematology & Oncology | DX: C34.11 Malignant neoplasm of upper lobe, right bronchus or lung (principal); C79.31 Secondary malignant neoplasm of brain; K66.1 Hemoperitoneum; R91.8 Other nonspecific abnormal finding of lung field | CPT/HCPCS: 70553; 78815; A9552 ==

== ENCOUNTER 2021-01-28 12:29 | Emergency (ER) | payer MEDICARE ==
[2021-01-28 13:29] LABS: #Eosinphils 0.1 thou/uL (0.0-0.7); #Lymphocytes 0.9 thou/uL (1.20-3.40); #Monocytes 0.7 thou/uL (0.11-0.59); #Neutrophils 7.3 thou/uL (1.40-6.50); %Eosinophils 0.8 % (0.0-10.0); %Lymphocytes 9.6 % (21.0-51.0); %Neutrophils 81.7 % (42.0-75.0); Mean Corpuscular HGB CONC 33.8 g/dL (32.0-36.0); Mean Corpuscular Hemoglobin 31.2 pg (27.0-31.0); Mean Corpuscular Volume 92.3 fL (78.0-98.0); Mean Platelet Volume 8.4 fL (7.4-10.4); Platelet Count 157 thou/uL (130-400); Red Blood Cell (RBC) Count 3.84 mill/uL (4.20-5.40); White Blood Cell (WBC) Count 8.9 thou/uL (4.8-10.8)
[2021-01-28] MEDS ORDERED: Atropine Sulfate 1 mg/10 ml Syringe ONE (13:43)
[2021-01-28 14:08] LABS: ALT (SGPT) 7 U/L (8-55); AST (SGOT) 9 U/L (5-34); Albumin 3.7 g/dL (3.4-4.8); Alkaline Phosphatase 70 U/L (40-110); Anion Gap 9 mmol/L (10-20); BUN (Urea Nitrogen) 13 mg/dL (9.8-20.1); Bilirubin, Total 1.2 mg/dL (0.2-1.2); Calc. Creatinine Clearance 0 mL/min (70-130); Calcium 9.4 mg/dL (7.8-10.44); Carbon Dioxide 28 mmol/L (23-31); Chloride 99 mmol/L (98-107); Globulin 3.1 g/dL (2.4-3.5); Glucose 145 mg/dL (80-115); Lipase 9 U/L (8-78); Potassium 4.1 mmol/L (3.5-5.1); Protein, Total 6.8 g/dL (5.8-8.1); Sodium 132 mmol/L (136-145)
[2021-01-28] MEDS ORDERED: Ondansetron PF 4 MG/2 ML Vial ONE (14:08)
[2021-01-28] MEDS ORDERED: traMADol HCl 50 MG TAB ONE (14:08)
[2021-01-28] MEDS ORDERED: cefTRIAXone\\ROCEPHIN 1 GM VIAL ONE (14:08)
[2021-01-28 14:38] LABS: Bilirubin Negative (Negative); Blood, Urine 1+ (Negative); Clarity Clear (Clear); Glucose, Urine (Dipstick) Normal (Negative); Ketone, Urine Negative (Negative); Leukocyte 500 Leu/uL (Negative); Nitrite Negative (Negative); Protein, Urine (Dipstick) 30 mg/dL (Neg-Trace); Specific Gravity, Urine 1.014 (1.002-1.036); Squamous Epithelial 0-3 HPF (0-3); pH, Urine 7.5 (5.0-9.0)
[2021-01-28 14:54] LABS: Bacteria/HPF Rare-Few HPF (None Seen); Transitional Epithelial 0-3 HPF (None Seen)
[2021-01-28] MEDS ORDERED: Metoclopramide HCl 10 MG/2 ML VIAL ONE (15:13)
== END 2021-01-28 17:41 | disposition home or self-care (01) ==
LOC: ERS 12:29
DX: N39.0 Urinary tract infection, site not specified (principal); M89.9 Disorder of bone, unspecified; E11.9 Type 2 diabetes mellitus without complications; E78.5 Hyperlipidemia, unspecified; E78.00 Pure hypercholesterolemia, unspecified; I10 Essential (primary) hypertension
CPT/HCPCS: 36415; 74176; 80053; 81003; 81015; 83690; 84484; 85025; 87040; 87086; 93005; 96365; 96367; 96375; J0461; J0696; J2405; J2765

== ENCOUNTER 2021-02-19 13:31 | Emergency (ER) | payer MEDICARE ==
[2021-02-19] MEDS ORDERED: Morphine 4 MG/ML VIAL ONE (14:22)
[2021-02-19] MEDS ORDERED: Ondansetron PF 4 MG/2 ML Vial ONE (14:22)
[2021-02-19 14:39] LABS: #Eosinphils 0.1 thou/uL (0.0-0.7); #Lymphocytes 0.9 thou/uL (1.20-3.40); #Monocytes 0.4 thou/uL (0.11-0.59); #Neutrophils 5.7 thou/uL (1.40-6.50); %Basophils 0.1 % (0.0-1.0); %Eosinophils 1.3 % (0.0-10.0); %Lymphocytes 12.5 % (21.0-51.0); %Monocytes 6.1 % (0.0-10.0); Hemoglobin 11.3 g/dL (12.0-16.0); Mean Corpuscular HGB CONC 32.9 g/dL (32.0-36.0); Mean Corpuscular Hemoglobin 30.5 pg (27.0-31.0); Mean Corpuscular Volume 92.6 fL (78.0-98.0); Mean Platelet Volume 8.3 fL (7.4-10.4); Platelet Count 117 thou/uL (130-400); RBC Distribution Width 13.3 % (11.5-14.5); White Blood Cell (WBC) Count 7.1 thou/uL (4.8-10.8)
[2021-02-19 14:58] LABS: ALT (SGPT) 10 U/L (8-55); AST (SGOT) 12 U/L (5-34); Albumin 3.4 g/dL (3.4-4.8); Alkaline Phosphatase 55 U/L (40-110); Anion Gap 12 mmol/L (10-20); BUN (Urea Nitrogen) 13 mg/dL (9.8-20.1); Bilirubin, Total 0.9 mg/dL (0.2-1.2); CRP (Inflammatory) Less than 0.50 mg/dL (= or < 0.5); Calc. Creatinine Clearance 0 mL/min (70-130); Calcium 8.7 mg/dL (7.8-10.44); Carbon Dioxide 31 mmol/L (23-31); Chloride 97 mmol/L (98-107); Globulin 2.6 g/dL (2.4-3.5); Glucose 107 mg/dL (80-115); Sodium 137 mmol/L (136-145)
[2021-02-19 15:05] LABS: Platelet Morphology Comment Appears Decreased; RBC Morphology Normal
[2021-02-19 15:12] LABS: Potassium 2.8 mmol/L (3.5-5.1)
[2021-02-19] MEDS ORDERED: Potassium Chloride 20 MEQ TAB ONE (15:18)
[2021-02-19] MEDS ORDERED: Famotidine/PF 20 mg/2ml Vial ONE (15:18)
[2021-02-19] MEDS ORDERED: diphenhydrAMINE 50 MG/ML VIAL ONE (15:18)
[2021-02-19] MEDS ORDERED: methylPREDNISolone Sod Succ/PF 125 MG/2 ML VIAL ONE (15:18)
[2021-02-19 16:34] LABS: Bilirubin Negative (Negative); Blood, Urine Negative (Negative); Clarity Clear (Clear); Glucose, Urine (Dipstick) Normal (Negative); Ketone, Urine Negative (Negative); Leukocyte Negative Leu/uL (Negative); Nitrite Negative (Negative); Protein, Urine (Dipstick) Negative (Neg-Trace); Specific Gravity, Urine 1.006 (1.002-1.036); Urobilinogen Normal mg/dL (Less than 2)
== END 2021-02-19 17:41 | disposition home or self-care (01) ==
LOC: ERS 13:31
DX: R07.89 Other chest pain (principal); E11.9 Type 2 diabetes mellitus without complications; Z79.4 Long term (current) use of insulin; E78.5 Hyperlipidemia, unspecified; E78.00 Pure hypercholesterolemia, unspecified; I10 Essential (primary) hypertension; R10.9 Unspecified abdominal pain
CPT/HCPCS: 36415; 51701; 71045; 71260; 74177; 80053; 81003; 83880; 84484; 85025; 86140; 93005; 96374; 96375; J1200; J2270; J2405; J2930; S0028

== ENCOUNTER 2021-03-08 13:58 | Emergency (ER) | payer MEDICARE ==
[~2021-03-08 13:58] MED LIST changes: -Heparin 1,000 UNITS/ML VIAL ONE; +Iopamidol-370 76% 500 ML 1 ML ONE
[2021-03-08 15:10] LABS: #Lymphocytes 0.8 thou/uL (1.20-3.40); #Monocytes 0.3 thou/uL (0.11-0.59); #Neutrophils 5.3 thou/uL (1.40-6.50); %Basophils 0.4 % (0.0-1.0); %Eosinophils 0.4 % (0.0-10.0); %Lymphocytes 12.8 % (21.0-51.0); %Monocytes 5.3 % (0.0-10.0); %Neutrophils 81.2 % (42.0-75.0); Mean Corpuscular HGB CONC 34.4 g/dL (32.0-36.0); Mean Corpuscular Hemoglobin 31.8 pg (27.0-31.0); Mean Corpuscular Volume 92.2 fL (78.0-98.0); Mean Platelet Volume 7.7 fL (7.4-10.4); Platelet Count 140 thou/uL (130-400); RBC Distribution Width 13.9 % (11.5-14.5); Red Blood Cell (RBC) Count 3.78 mill/uL (4.20-5.40); White Blood Cell (WBC) Count 6.5 thou/uL (4.8-10.8)
[2021-03-08] MEDS ORDERED: Ondansetron PF 4 MG/2 ML Vial ONE (15:14)
[2021-03-08] MEDS ORDERED: Morphine 4 MG/ML VIAL ONE ×2 (15:15→16:33)
[2021-03-08 15:30] LABS: ALT (SGPT) 15 U/L (8-55); AST (SGOT) 11 U/L (5-34); Albumin 3.8 g/dL (3.4-4.8); Alkaline Phosphatase 76 U/L (40-110); Anion Gap 15 mmol/L (10-20); BUN (Urea Nitrogen) 10 mg/dL (9.8-20.1); Calc. Creatinine Clearance 0 mL/min (70-130); Calcium 9.5 mg/dL (7.8-10.44); Carbon Dioxide 27 mmol/L (23-31); Chloride 100 mmol/L (98-107); Globulin 2.9 g/dL (2.4-3.5); Glucose 157 mg/dL (80-115); Potassium 3.1 mmol/L (3.5-5.1); Protein, Total 6.7 g/dL (5.8-8.1); Sodium 139 mmol/L (136-145)
[2021-03-08] MEDS ORDERED: methylPREDNISolone Sod Succ/PF 125 MG/2 ML VIAL ONE (16:23)
[2021-03-08] MEDS ORDERED: diphenhydrAMINE 50 MG/ML VIAL ONE (16:24)
[2021-03-08] MEDS ORDERED: Famotidine/PF 20 mg/2ml Vial ONE (16:25)
== END 2021-03-08 18:30 | disposition home or self-care (01) ==
LOC: ERS 13:58
DX: K29.70 Gastritis, unspecified, without bleeding (principal); Z79.899 Other long term (current) drug therapy; Z79.891 Long term (current) use of opiate analgesic; Z79.84 Long term (current) use of oral hypoglycemic drugs; E11.9 Type 2 diabetes mellitus without complications; E78.5 Hyperlipidemia, unspecified; E78.00 Pure hypercholesterolemia, unspecified; I10 Essential (primary) hypertension
CPT/HCPCS: 71260; 74177; 80053; 85025; 96374; 96375; 96376; J1200; J2270; J2405; J2930; Q9967; S0028

== ENCOUNTER 2021-03-19 11:08 | Outpatient (CLI) | payer MEDICARE | END 2021-03-19 11:09 | disposition home or self-care (01) | LOC: PET 11:08 | PROVIDERS: ATTEND Internal Medicine Hematology & Oncology | DX: C34.11 Malignant neoplasm of upper lobe, right bronchus or lung (principal) | CPT/HCPCS: 78815; A9552 ==

== ENCOUNTER 2021-06-18 08:45 | Outpatient (CLI) | payer MEDICARE | END 2021-06-18 08:46 | disposition home or self-care (01) | LOC: PET 08:45 | PROVIDERS: ATTEND Internal Medicine Hematology & Oncology | DX: C34.11 Malignant neoplasm of upper lobe, right bronchus or lung (principal) | CPT/HCPCS: 78815; A9552 ==

== ENCOUNTER 2021-07-22 10:35 | Outpatient (CLI) | payer MEDICARE ==
[~2021-07-22 10:35] MED LIST changes: -Iopamidol-370 76% 500 ML 1 ML ONE; +Magnevist 469MG/ML 20 ML VIAL ONE
== END 2021-07-22 10:36 | disposition home or self-care (01) ==
LOC: MRI 10:35
PROVIDERS: ATTEND Radiology Radiation Oncology
DX: C79.31 Secondary malignant neoplasm of brain (principal); H74.8X3 Other specified disorders of middle ear and mastoid, bilateral; Z92.3 Personal history of irradiation
CPT/HCPCS: 70553; A9579

== ENCOUNTER 2021-10-06 10:15 | Outpatient (CLI) | payer MEDICARE | END 2021-10-06 10:16 | disposition home or self-care (01) | LOC: PET 10:15 | PROVIDERS: ATTEND Internal Medicine Hematology & Oncology | DX: C34.11 Malignant neoplasm of upper lobe, right bronchus or lung (principal) | CPT/HCPCS: 78815; A9552 ==

== ENCOUNTER 2021-11-24 09:41 | Outpatient (CLI) | payer MEDICARE | END 2021-11-24 09:42 | disposition home or self-care (01) | LOC: SCSMRI 09:41 | PROVIDERS: ATTEND Radiology Radiation Oncology | DX: C34.90 Malignant neoplasm of unspecified part of unspecified bronchus or lung (principal); C79.31 Secondary malignant neoplasm of brain | CPT/HCPCS: 70553 ==

== ENCOUNTER 2021-11-30 19:27 | Emergency (ER) | payer MEDICARE ==
[~2021-11-30 19:27] MED LIST changes: +Iopamidol-370 76% 500 ML 1 ML ONE; -Magnevist 469MG/ML 20 ML VIAL ONE
[2021-11-30 19:58] LABS: Hemoglobin 11.1 g/dL (12.0-16.0); Mean Corpuscular Hemoglobin 30.8 pg (27.0-31.0); Mean Corpuscular Volume 93.4 fL (78.0-98.0); Red Blood Cell (RBC) Count 3.59 mill/uL (4.20-5.40); White Blood Cell (WBC) Count 4.3 thou/uL (4.8-10.8)
[2021-11-30] MEDS ORDERED: Morphine 4 MG/ML VIAL ONE (20:20)
[2021-11-30 20:21] LABS: ALT (SGPT) 8 U/L (8-55); AST (SGOT) 14 U/L (5-34); Alkaline Phosphatase 60 U/L (40-110); Anion Gap 18 mmol/L (10-20); BUN (Urea Nitrogen) 18 mg/dL (9.8-20.1); Bilirubin, Total 1.3 mg/dL (0.2-1.2); Calc. Creatinine Clearance 0 mL/min (70-130); Calcium 9.4 mg/dL (7.8-10.44); Carbon Dioxide 22 mmol/L (23-31); Chloride 100 mmol/L (98-107); Estimated GFR 94; Globulin 2.7 g/dL (2.4-3.5); Glucose 119 mg/dL (80-115); Lipase Less than 4 U/L (8-78); Potassium 3.1 mmol/L (3.5-5.1); Protein, Total 6.7 g/dL (5.8-8.1); Sodium 137 mmol/L (136-145)
[2021-11-30 20:34] LABS: #Lymphocytes 0.4 thou/uL (1.20-3.40); #Monocytes 0.2 thou/uL (0.11-0.59); #Neutrophils 3.7 thou/uL (1.40-6.50); %Eosinophils 0.1 % (0.0-10.0); %Lymphocytes 9.6 % (21.0-51.0); %Monocytes 4.7 % (0.0-10.0); %Neutrophils 85.6 % (42.0-75.0); Mean Platelet Volume 9.4 fL (7.4-10.4); Platelet Count 77 thou/uL (130-400); Platelet Morphology Comment Appears Decreased; RBC Morphology Normal
[2021-11-30] MEDS ORDERED: diphenhydrAMINE 50 MG/ML VIAL ONE (21:05)
[2021-11-30] MEDS ORDERED: Famotidine/PF 20 mg/2ml Vial ONE (21:05)
[2021-11-30] MEDS ORDERED: methylPREDNISolone Sod Succ/PF 125 MG/2 ML VIAL ONE (21:05)
[2021-11-30 23:29] LABS: Bilirubin Negative (Negative); Blood, Urine 3+ (Negative); Clarity Turbid (Clear); Glucose, Urine (Dipstick) Normal (Negative); Ketone, Urine 40 mg/dL (Negative); Leukocyte 500 Leu/uL (Negative); Nitrite Negative (Negative); Protein, Urine (Dipstick) 30 mg/dL (Neg-Trace); Specific Gravity, Urine 1.012 (1.002-1.036); Urobilinogen Normal mg/dL (Less than 2); pH, Urine 6.5 (5.0-9.0)
[2021-11-30 23:36] LABS: Bacteria/HPF 1+ HPF (None Seen)
[2021-12-01] MEDS ORDERED: Lidocaine Viscous Sol 2% 15 ml UD Cup ONE (00:44)
[2021-12-01] MEDS ORDERED: Mag-Al 1200 mg/1200 mg/30 ML UDCUP ONE (00:44)
== END 2021-12-01 03:28 | disposition home or self-care (01) ==
LOC: ERS 19:27
DX: N13.2 Hydronephrosis with renal and ureteral calculous obstruction (principal); E11.9 Type 2 diabetes mellitus without complications; E78.5 Hyperlipidemia, unspecified; I10 Essential (primary) hypertension; Z79.899 Other long term (current) drug therapy; C34.11 Malignant neoplasm of upper lobe, right bronchus or lung
CPT/HCPCS: 36415; 71045; 71275; 74174; 80053; 81003; 81015; 82550; 83605; 83690; 83880; 84484; 85025; 93005; 96374; 96375; J1200; J2270; J2930; Q9967; S0028

== ENCOUNTER 2022-03-13 12:49 | Inpatient (IN) | payer MEDICARE ==
[2022-03-13] MEDS ORDERED: Morphine 4 MG/ML VIAL ONE (13:26)
[2022-03-13] MEDS ORDERED: Ondansetron PF 4 MG/2 ML Vial ONE (13:26)
[2022-03-13 13:40] LABS: #Eosinphils 0.1 thou/uL (0.0-0.7); #Lymphocytes 0.6 thou/uL (1.20-3.40); #Monocytes 0.5 thou/uL (0.11-0.59); #Neutrophils 6.4 thou/uL (1.40-6.50); %Basophils 0.4 % (0.0-1.0); %Eosinophils 1.2 % (0.0-10.0); %Lymphocytes 8.3 % (21.0-51.0); %Monocytes 6.1 % (0.0-10.0); Hemoglobin 11.4 g/dL (12.0-16.0); Mean Corpuscular HGB CONC 31.7 g/dL (32.0-36.0); Mean Corpuscular Hemoglobin 30.7 pg (27.0-31.0); Mean Corpuscular Volume 96.8 fL (78.0-98.0); Mean Platelet Volume 9.9 fL (7.4-10.4); Platelet Count 68 thou/uL (130-400); RBC Distribution Width 12.9 % (11.5-14.5); White Blood Cell (WBC) Count 7.6 thou/uL (4.8-10.8)
[2022-03-13 14:00] LABS: ALT (SGPT) 19 U/L (8-55); AST (SGOT) 14 U/L (5-34); Albumin 3.9 g/dL (3.4-4.8); Alkaline Phosphatase 107 U/L (40-110); Anion Gap 12 mmol/L (10-20); BUN (Urea Nitrogen) 14 mg/dL (9.8-20.1); Bilirubin, Total 0.7 mg/dL (0.2-1.2); CK (CPK) 77 U/L (29-168); Calc. Creatinine Clearance 0 mL/min (70-130); Calcium 9.1 mg/dL (7.8-10.44); Carbon Dioxide 24 mmol/L (23-31); Chloride 104 mmol/L (98-107); Estimated GFR 64; Globulin 2.4 g/dL (2.4-3.5); Glucose 188 mg/dL (80-115); Lipase 10 U/L (8-78); Potassium 3.3 mmol/L (3.5-5.1); Protein, Total 6.3 g/dL (5.8-8.1); Sodium 137 mmol/L (136-145)
[2022-03-13 14:08] LABS: INR-International Normal Ratio 1.2; PTT 29.1 sec (22.9-36.1); Prothrombin Time 14.8 sec (12.0-14.7)
[2022-03-13] MEDS ORDERED: TETANUS, DIPHTHERIA TOX,ADULT (TDVAX) 0.5 ML VIAL IM ONE (16:28)
[2022-03-13] MEDS ORDERED: hydrALAZINE 20 MG/ML VIAL SLOW IVP PRN (16:28)
[2022-03-13] MEDS ORDERED: Ondansetron PF 4 MG/2 ML Vial IVP PRN (16:28)
[2022-03-13] MEDS ORDERED: traMADol HCl 50 MG TAB PO PRN (16:32)
[2022-03-13] MEDS ORDERED: Acetaminophen 500 MG TAB ONE (16:51)
[2022-03-13 16:56] LABS: Magnesium 1.8 mg/dL (1.6-2.6); Phosphorus 3.2 mg/dL (2.3-4.7)
[2022-03-13] MEDS ORDERED: Dextrose 5% in Water 1,000 ML IV PRN (17:04)
[2022-03-13] MEDS ORDERED: Dextrose 50% Abboject 50 ML SYRINGE SLOW IVP PRN (17:04)
[2022-03-13] MEDS ORDERED: Morphine 4 MG/ML VIAL SLOW IVP PRN (17:06)
[2022-03-13] MEDS ORDERED: Magnesium 2 GM/50 ML(in water) 2 GM in Premix Bag 1 BAG IVPB SCH (17:15)
[2022-03-13] MEDS ORDERED: Potassium Phosphate 30 MMOL in Sodium Chloride 0.9% 250 ML 250 ML IVPB SCH (17:15)
[2022-03-13] MEDS: traMADol HCl 50 MG TAB PO SCH (18:49)
[2022-03-13] MEDS: Senokot S 8.6-50 MG TAB PO SCH (21:10)
[2022-03-13] MEDS: Gabapentin 300 MG CAP PO SCH (21:10)
[2022-03-13] MEDS: Famotidine/PF 20 mg/2ml Vial SLOW IVP SCH (21:11)
[2022-03-14] MEDS: Acetaminophen 500 MG TAB PO SCH ×4 (00:01→17:56)
[2022-03-14] MEDS: traMADol HCl 50 MG TAB PO SCH ×4 (00:02→17:56)
[2022-03-14 01:57] LABS: Bacteria/HPF 1+ HPF (None Seen); Bilirubin Negative (Negative); Blood, Urine Negative (Negative); Clarity Clear (Clear); Glucose, Urine (Dipstick) Normal (Negative); Ketone, Urine Negative (Negative); Leukocyte Negative Leu/uL (Negative); Nitrite Negative (Negative); Protein, Urine (Dipstick) Negative (Neg-Trace); RBC/HPF 0-3 HPF (0-3); Specific Gravity, Urine 1.013 (1.002-1.036); Squamous Epithelial None Seen HPF (0-3); Urobilinogen Normal mg/dL (Less than 2); WBC/HPF 0-3 HPF (0-3)
[2022-03-14 04:58] LABS: SARS-CoV-2 NAA Rapid Test Not Detected (NotDetected)
[2022-03-14 06:25] LABS: #Eosinphils 0.2 thou/uL (0.0-0.7); #Lymphocytes 0.5 thou/uL (1.20-3.40); #Monocytes 0.4 thou/uL (0.11-0.59); #Neutrophils 3.9 thou/uL (1.40-6.50); %Basophils 0.2 % (0.0-1.0); %Eosinophils 3.2 % (0.0-10.0); %Lymphocytes 10.8 % (21.0-51.0); %Monocytes 7.4 % (0.0-10.0); %Neutrophils 78.5 % (42.0-75.0); Hemoglobin 10.2 g/dL (12.0-16.0); Mean Corpuscular Volume 96.9 fL (78.0-98.0); Mean Platelet Volume 9.4 fL (7.4-10.4); Platelet Count 56 thou/uL (130-400); RBC Distribution Width 12.8 % (11.5-14.5); Red Blood Cell (RBC) Count 3.28 mill/uL (4.20-5.40)
[2022-03-14 06:49] LABS: Anion Gap 11 mmol/L (10-20); BUN (Urea Nitrogen) 13 mg/dL (9.8-20.1); Calc. Creatinine Clearance 0 mL/min (70-130); Calcium 8.6 mg/dL (7.8-10.44); Carbon Dioxide 25 mmol/L (23-31); Chloride 107 mmol/L (98-107); Estimated GFR 90; Glucose 101 mg/dL (80-115); Magnesium 2.3 mg/dL (1.6-2.6); Phosphorus 4.7 mg/dL (2.3-4.7); Potassium 4.1 mmol/L (3.5-5.1); Sodium 139 mmol/L (136-145)
[2022-03-14] MEDS ORDERED: FLU VACC QS2022-23(65YR UP)/PF 240 MCG/0.7 ML SYRINGE IM ONE (09:00)
[2022-03-14] MEDS: Famotidine/PF 20 mg/2ml Vial SLOW IVP SCH (09:08)
[2022-03-14] MEDS: Gabapentin 300 MG CAP PO SCH ×3 (09:08→20:58)
[2022-03-14] MEDS: Polyethylene Glycol 3350 17 GM Packet PO SCH (09:08)
[2022-03-14] MEDS: Senokot S 8.6-50 MG TAB PO SCH ×2 (09:08→20:57)
[2022-03-14] MEDS ORDERED: Metoprolol Tartrate 25 MG TAB PO SCH ×2 (10:00→11:00)
[2022-03-14] MEDS ORDERED: Boostrix 0.5 ML (Tdap) VIAL (>/=7 yrs of age) IM ONE (10:00)
[2022-03-14] MEDS: TAGRISSO PO SCH (17:44)
[2022-03-14] MEDS: HumaLOG 300 UNITS/3 ML VIAL SC PRN (18:04)
[2022-03-14] MEDS: Metoprolol Tartrate 25 MG TAB PO SCH (20:58)
[2022-03-14] MEDS ORDERED: Enoxaparin Sodium 40 MG/0.4 ML SYRINGE SC SCH (21:00)
[2022-03-15] MEDS: Acetaminophen 500 MG TAB PO SCH ×5 (06:02→23:50)
[2022-03-15] MEDS: Furosemide 40 MG TAB PO SCH (06:03)
[2022-03-15] MEDS: traMADol HCl 50 MG TAB PO SCH ×5 (06:03→23:49)
[2022-03-15] MEDS: Potassium Chloride 10 MEQ TAB PO SCH (06:03)
[2022-03-15 06:15] LABS: #Eosinphils 0.2 thou/uL (0.0-0.7); #Lymphocytes 0.7 thou/uL (1.20-3.40); #Monocytes 0.5 thou/uL (0.11-0.59); #Neutrophils 3.5 thou/uL (1.40-6.50); %Basophils 0.1 % (0.0-1.0); %Eosinophils 3.6 % (0.0-10.0); %Lymphocytes 13.8 % (21.0-51.0); %Neutrophils 72.5 % (42.0-75.0); Mean Corpuscular HGB CONC 31.6 g/dL (32.0-36.0); Mean Corpuscular Volume 98.3 fL (78.0-98.0); Platelet Count 55 thou/uL (130-400); RBC Distribution Width 12.8 % (11.5-14.5); Red Blood Cell (RBC) Count 3.21 mill/uL (4.20-5.40); White Blood Cell (WBC) Count 4.8 thou/uL (4.8-10.8)
[2022-03-15] MEDS: Polyethylene Glycol 3350 17 GM Packet PO SCH (09:00)
[2022-03-15] MEDS: Senokot S 8.6-50 MG TAB PO SCH ×2 (09:00→21:14)
[2022-03-15] MEDS: Metoprolol Tartrate 25 MG TAB PO SCH ×2 (09:01→21:15)
[2022-03-15] MEDS: Gabapentin 300 MG CAP PO SCH ×3 (09:01→21:13)
[2022-03-15] MEDS ORDERED: FLU VACC QS2022-23(65YR UP)/PF 240 MCG/0.7 ML SYRINGE IM ONE (09:45)
[2022-03-15 12:10] VITALS: BMI 29.0
[2022-03-15] MEDS: HumaLOG 300 UNITS/3 ML VIAL SC PRN (12:36)
[2022-03-15] MEDS: TAGRISSO PO SCH (17:37)
[2022-03-15] MEDS: Enoxaparin Sodium 30 MG/0.3 ML SYRINGE SC SCH (21:17)
[2022-03-16] MEDS: Acetaminophen 500 MG TAB PO SCH ×3 (05:30→18:04)
[2022-03-16] MEDS: traMADol HCl 50 MG TAB PO SCH ×3 (05:31→18:04)
[2022-03-16] MEDS: Polyethylene Glycol 3350 17 GM Packet PO SCH (08:21)
[2022-03-16] MEDS: Metoprolol Tartrate 25 MG TAB PO SCH ×2 (08:22→21:05)
[2022-03-16] MEDS: Senokot S 8.6-50 MG TAB PO SCH ×2 (08:22→21:04)
[2022-03-16] MEDS: Potassium Chloride 10 MEQ TAB PO SCH (08:22)
[2022-03-16] MEDS: Gabapentin 300 MG CAP PO SCH ×3 (08:22→21:04)
[2022-03-16] MEDS: Furosemide 40 MG TAB PO SCH (08:23)
[2022-03-16 08:25] LABS: #Eosinphils 0.1 thou/uL (0.0-0.7); #Lymphocytes 0.5 thou/uL (1.20-3.40); #Monocytes 0.3 thou/uL (0.11-0.59); %Eosinophils 2.8 % (0.0-10.0); %Lymphocytes 10.1 % (21.0-51.0); %Monocytes 5.6 % (0.0-10.0); %Neutrophils 81.5 % (42.0-75.0); Hemoglobin 10.9 g/dL (12.0-16.0); Mean Corpuscular HGB CONC 31.3 g/dL (32.0-36.0); Mean Corpuscular Hemoglobin 30.7 pg (27.0-31.0); Mean Platelet Volume 10.3 fL (7.4-10.4); Platelet Count 67 thou/uL (130-400); RBC Distribution Width 12.8 % (11.5-14.5); Red Blood Cell (RBC) Count 3.56 mill/uL (4.20-5.40); White Blood Cell (WBC) Count 4.9 thou/uL (4.8-10.8)
[2022-03-16] MEDS ORDERED: Ibuprofen 200 MG TAB PO PRN (11:19)
[2022-03-16] MEDS: HumaLOG 300 UNITS/3 ML VIAL SC PRN (12:17)
[2022-03-16] MEDS: TAGRISSO PO SCH (18:05)
[2022-03-16] MEDS: Enoxaparin Sodium 30 MG/0.3 ML SYRINGE SC SCH (21:04)
[2022-03-17] MEDS: Acetaminophen 500 MG TAB PO SCH ×3 (00:03→11:59)
[2022-03-17] MEDS: traMADol HCl 50 MG TAB PO SCH ×3 (00:04→11:59)
[2022-03-17] MEDS: Furosemide 40 MG TAB PO SCH (05:33)
[2022-03-17 08:00] LABS: #Eosinphils 0.2 thou/uL (0.0-0.7); #Lymphocytes 0.6 thou/uL (1.20-3.40); #Monocytes 0.4 thou/uL (0.11-0.59); #Neutrophils 3.2 thou/uL (1.40-6.50); %Eosinophils 3.6 % (0.0-10.0); %Lymphocytes 13.1 % (21.0-51.0); %Neutrophils 73.4 % (42.0-75.0); Hemoglobin 9.7 g/dL (12.0-16.0); Mean Corpuscular HGB CONC 31.5 g/dL (32.0-36.0); Mean Corpuscular Hemoglobin 31.1 pg (27.0-31.0); Mean Corpuscular Volume 98.7 fl (78.0-98.0); Mean Platelet Volume 9.7 fL (7.4-10.4); Platelet Count 71 thou/uL (130-400); RBC Distribution Width 12.9 % (11.5-14.5); Red Blood Cell (RBC) Count 3.12 mill/uL (4.20-5.40); White Blood Cell (WBC) Count 4.4 thou/uL (4.8-10.8)
[2022-03-17] MEDS ORDERED: Ferrous Sulfate 325 MG TAB PO SCH (09:00)
[2022-03-17] MEDS ORDERED: Ascorbic Acid 500 mg Chewable Tablet PO SCH (09:00)
[2022-03-17] MEDS: Metoprolol Tartrate 25 MG TAB PO SCH (09:03)
[2022-03-17] MEDS: Gabapentin 300 MG CAP PO SCH (09:03)
[2022-03-17] MEDS: Potassium Chloride 10 MEQ TAB PO SCH (09:03)
[2022-03-17] MEDS: Senokot S 8.6-50 MG TAB PO SCH (09:03)
[2022-03-17] MEDS: Polyethylene Glycol 3350 17 GM Packet PO SCH (09:03)
[2022-03-17 10:16] VITALS: TEMP 98.2
[2022-03-17 13:42] VITALS: BP 156/87
== END 2022-03-17 14:15 | DRG 536 ==
LOC: ERS 12:49 → SURG A 16:28
PROVIDERS: ADMIT Specialist; ATTEND Specialist
DX: S32.592A Other specified fracture of left pubis, initial encounter for closed fracture (principal); C34.11 Malignant neoplasm of upper lobe, right bronchus or lung; Z20.822 Contact with and (suspected) exposure to COVID-19; E11.9 Type 2 diabetes mellitus without complications; E78.00 Pure hypercholesterolemia, unspecified; I10 Essential (primary) hypertension; W18.30XA Fall on same level, unspecified, initial encounter; S00.03XA Contusion of scalp, initial encounter; Z90.49 Acquired absence of other specified parts of digestive tract; Z91.041 Radiographic dye allergy status; Z88.1 Allergy status to other antibiotic agents; Z90.710 Acquired absence of both cervix and uterus; Z79.899 Other long term (current) drug therapy
CPT/HCPCS: 36415; 36416; 70450; 71045; 72125; 72170; 80048; 80053; 81001; 82550; 83690; 83735; 83880; 84100; 85025; 85610; 85730; 90471; 90662; 90715; 90732; 93005; 96361; 96374; 96375; G0008; G0009; G0390; J1650; J1815; J2270; J2405; J3475; J7050; S0028; U0002

== ENCOUNTER 2022-05-01 03:08 | Observation (INO) | payer MEDICARE ==
[2022-05-01 04:16] LABS: #Basophils 0.1 thou/uL (0.0-0.2); #Lymphocytes 0.4 thou/uL (1.20-3.40); #Monocytes 0.5 thou/uL (0.11-0.59); #Neutrophils 6.8 thou/uL (1.40-6.50); %Basophils 0.7 % (0.0-1.0); %Eosinophils 0.1 % (0.0-10.0); %Lymphocytes 4.5 % (21.0-51.0); %Monocytes 6.5 % (0.0-10.0); %Neutrophils 88.3 % (42.0-75.0); Hemoglobin 10.9 g/dL (12.0-16.0); Mean Corpuscular HGB CONC 32.6 g/dL (32.0-36.0); Mean Corpuscular Hemoglobin 30.8 pg (27.0-31.0); Mean Corpuscular Volume 94.3 fl (78.0-98.0); Mean Platelet Volume 9.9 fL (7.4-10.4); Platelet Count 106 10x3/uL (130-400); RBC Distribution Width 13.3 % (11.5-14.5); Red Blood Cell (RBC) Count 3.56 mill/uL (4.20-5.40); White Blood Cell (WBC) Count 7.7 10x3/uL (4.8-10.8)
[2022-05-01 04:34] LABS: ALT (SGPT) 7 U/L (8-55); AST (SGOT) 14 U/L (5-34); Albumin 4.2 g/dL (3.4-4.8); Alkaline Phosphatase 310 U/L (40-110); Anion Gap 16 mmol/L (10-20); BUN (Urea Nitrogen) 20 mg/dL (9.8-20.1); Bilirubin, Total 1.4 mg/dL (0.2-1.2); Calc. Creatinine Clearance 0 mL/min (70-130); Calcium 9.6 mg/dL (7.8-10.44); Carbon Dioxide 27 mmol/L (23-31); Chloride 95 mmol/L (98-107); Estimated GFR 79; Globulin 2.7 g/dL (2.4-3.5); Glucose 231 mg/dL (80-115); Lipase 5 U/L (8-78); Potassium 3.5 mmol/L (3.5-5.1); Protein, Total 6.9 g/dL (5.8-8.1); Sodium 134 mmol/L (136-145)
[2022-05-01] MEDS ORDERED: Famotidine/PF 20 mg/2ml Vial ONE (07:15)
[2022-05-01] MEDS ORDERED: methylPREDNISolone Sod Succ 40 MG VIAL ONE (07:15)
[2022-05-01] MEDS ORDERED: diphenhydrAMINE 50 MG/ML VIAL ONE (07:15)
[2022-05-01] MEDS ORDERED: Ondansetron PF 4 MG/2 ML Vial ONE (07:15)
[2022-05-01 10:29] LABS: Bacteria/HPF None Seen HPF (None Seen); Bilirubin Negative (Negative); Blood, Urine 1+ (Negative); Clarity Clear (Clear); Glucose, Urine (Dipstick) 100 mg/dL (Negative); Ketone, Urine 20 mg/dL (Negative); Leukocyte 250 Leu/uL (Negative); Nitrite Negative (Negative); Protein, Urine (Dipstick) 30 mg/dL (Neg-Trace); RBC/HPF 0-3 HPF (0-3); Specific Gravity, Urine 1.017 (1.002-1.036); Squamous Epithelial 0-3 HPF (0-3); Urobilinogen Normal mg/dL (Less than 2); WBC/HPF 0-3 HPF (0-3)
[2022-05-01] MEDS ORDERED: Iopamidol-370 76% 500 ML 1 ML ONE (13:17)
[2022-05-01 14:58] VITALS: BMI 22.2
[2022-05-01] MEDS: cefTRIAXone\\ROCEPHIN 1 GM in Sodium Chloride 0.9% 100 ML IVPB SCH (15:35)
[2022-05-01] MEDS: traMADol HCl 50 MG TAB PO PRN ×2 (16:32→22:01)
[2022-05-01] MEDS ORDERED: Acetaminophen 325 MG TAB PO PRN (18:52)
[2022-05-01] MEDS ORDERED: HYDROcodone/Acetaminophen 5/325 mg Tablet PO PRN (18:52)
[2022-05-01] MEDS ORDERED: HumaLOG 300 UNITS/3 ML VIAL SC PRN (18:52)
[2022-05-01] MEDS ORDERED: Dextrose 5% in Water 1,000 ML IV PRN (18:52)
[2022-05-01] MEDS ORDERED: Dextrose 50% Abboject 50 ML SYRINGE SLOW IVP PRN (18:52)
[2022-05-01] MEDS ORDERED: Bisacodyl 5 MG TAB PO PRN (18:52)
[2022-05-01] MEDS: Morphine 4 MG/ML VIAL SLOW IVP PRN (19:15)
[2022-05-01] MEDS: Sodium Chloride 0.9% 1,000 ML IV SCH (19:19)
[2022-05-01] MEDS: Lisinopril 20 MG TAB PO SCH (22:01)
[2022-05-01] MEDS: Gabapentin 300 MG CAP PO SCH (22:02)
[2022-05-01] MEDS: metFORMIN 500 MG TAB PO SCH (22:02)
[2022-05-02 05:13] LABS: #Basophils 0.1 thou/uL (0.0-0.2); #Lymphocytes 0.6 thou/uL (1.20-3.40); #Monocytes 0.6 thou/uL (0.11-0.59); #Neutrophils 5.2 thou/uL (1.40-6.50); %Basophils 1.4 % (0.0-1.0); %Eosinophils 0.5 % (0.0-10.0); %Lymphocytes 8.8 % (21.0-51.0); %Monocytes 9.7 % (0.0-10.0); %Neutrophils 79.6 % (42.0-75.0); Hemoglobin 10.7 g/dL (12.0-16.0); Mean Corpuscular HGB CONC 31.9 g/dL (32.0-36.0); Mean Corpuscular Hemoglobin 30.3 pg (27.0-31.0); Mean Platelet Volume 10.5 fL (7.4-10.4); Platelet Count 108 10x3/uL (130-400); RBC Distribution Width 13.5 % (11.5-14.5); Red Blood Cell (RBC) Count 3.53 mill/uL (4.20-5.40); White Blood Cell (WBC) Count 6.6 10x3/uL (4.8-10.8)
[2022-05-02 05:30] LABS: Anion Gap 16 mmol/L (10-20); BUN (Urea Nitrogen) 20 mg/dL (9.8-20.1); Calc. Creatinine Clearance 76 mL/min (70-130); Calcium 9.2 mg/dL (7.8-10.44); Carbon Dioxide 21 mmol/L (23-31); Chloride 99 mmol/L (98-107); Estimated GFR 94; Glucose 163 mg/dL (80-115); Potassium 3.7 mmol/L (3.5-5.1); Sodium 132 mmol/L (136-145)
[2022-05-02] MEDS: Sodium Chloride 0.9% 1,000 ML IV SCH ×2 (08:15→23:02)
[2022-05-02] MEDS: Ondansetron PF 4 MG/2 ML Vial IVP PRN ×3 (08:17→23:45)
[2022-05-02] MEDS: Gabapentin 300 MG CAP PO SCH ×2 (08:29→20:18)
[2022-05-02] MEDS: Amlodipine 5 MG TAB PO SCH (08:29)
[2022-05-02] MEDS: Enoxaparin Sodium 40 MG/0.4 ML SYRINGE SC SCH (08:29)
[2022-05-02] MEDS: Lisinopril 20 MG TAB PO SCH ×2 (08:30→20:19)
[2022-05-02] MEDS: metFORMIN 500 MG TAB PO SCH ×2 (08:31→20:20)
[2022-05-02] MEDS ORDERED: Osimertinib Mesylate [Tagrisso] 80 MG Tablet PO SCH (09:00)
[2022-05-02] MEDS: cefTRIAXone\\ROCEPHIN 1 GM in Sodium Chloride 0.9% 100 ML IVPB SCH (14:47)
[2022-05-02] MEDS: Prochlorperazine Maleate 5 MG TAB PO PRN (20:20)
[2022-05-02] MEDS: HYDROcodone/Acetaminophen 5/325 mg Tablet PO PRN (23:44)
[2022-05-03] MEDS ORDERED: Calcium Carbonate 500 MG ChewTAB PO PRN (00:08)
[2022-05-03] MEDS: Morphine 4 MG/ML VIAL SLOW IVP PRN (00:39)
[2022-05-03 05:23] LABS: #Lymphocytes 0.4 thou/uL (1.20-3.40); #Monocytes 0.8 thou/uL (0.11-0.59); #Neutrophils 9.3 thou/uL (1.40-6.50); %Basophils 0.1 % (0.0-1.0); %Eosinophils 0.2 % (0.0-10.0); %Lymphocytes 4.2 % (21.0-51.0); %Monocytes 7.1 % (0.0-10.0); %Neutrophils 88.5 % (42.0-75.0); Hemoglobin 10.8 g/dL (12.0-16.0); Mean Corpuscular HGB CONC 32.7 g/dL (32.0-36.0); Mean Corpuscular Hemoglobin 30.3 pg (27.0-31.0); Mean Corpuscular Volume 92.7 fl (78.0-98.0); Mean Platelet Volume 9.6 fL (7.4-10.4); Platelet Count 121 10x3/uL (130-400); RBC Distribution Width 13.3 % (11.5-14.5); Red Blood Cell (RBC) Count 3.56 mill/uL (4.20-5.40); White Blood Cell (WBC) Count 10.6 10x3/uL (4.8-10.8)
[2022-05-03 05:41] LABS: Anion Gap 13 mmol/L (10-20); BUN (Urea Nitrogen) 22 mg/dL (9.8-20.1); Calc. Creatinine Clearance 79 mL/min (70-130); Calcium 9.1 mg/dL (7.8-10.44); Carbon Dioxide 28 mmol/L (23-31); Chloride 99 mmol/L (98-107); Estimated GFR 94; Glucose 177 mg/dL (80-115); Magnesium 1.7 mg/dL (1.6-2.6); Phosphorus 2.2 mg/dL (2.3-4.7); Potassium 3.2 mmol/L (3.5-5.1); Sodium 137 mmol/L (136-145)
[2022-05-03] MEDS: Prochlorperazine Maleate 5 MG TAB PO PRN (06:13)
[2022-05-03] MEDS: HYDROcodone/Acetaminophen 5/325 mg Tablet PO PRN ×2 (06:14→11:54)
[2022-05-03] MEDS: Sodium Chloride 0.9% 1,000 ML IV SCH (09:05)
[2022-05-03] MEDS: Amlodipine 5 MG TAB PO SCH (09:06)
[2022-05-03] MEDS: Gabapentin 300 MG CAP PO SCH (09:06)
[2022-05-03] MEDS: Enoxaparin Sodium 40 MG/0.4 ML SYRINGE SC SCH (09:06)
[2022-05-03] MEDS: Lisinopril 20 MG TAB PO SCH (09:07)
[2022-05-03] MEDS: metFORMIN 500 MG TAB PO SCH (09:07)
[2022-05-03] MEDS: cefTRIAXone\\ROCEPHIN 1 GM in Sodium Chloride 0.9% 100 ML IVPB SCH (11:54)
[2022-05-03] MEDS: Ondansetron PF 4 MG/2 ML Vial IVP PRN (11:54)
[2022-05-03 12:07] VITALS: TEMP 98
[2022-05-03 16:01] VITALS: BP 137/74
== END 2022-05-03 17:03 | disposition home or self-care (01) ==
LOC: ERS 03:08 → ERHOLD 10:54 → 2SW 14:38
PROVIDERS: ADMIT Hospitalist; ATTEND Hospitalist
DX: R11.2 Nausea with vomiting, unspecified (principal); T45.1X5A Adverse effect of antineoplastic and immunosuppressive drugs, initial encounter; N39.0 Urinary tract infection, site not specified; E11.9 Type 2 diabetes mellitus without complications; E87.1 Hypo-osmolality and hyponatremia; I10 Essential (primary) hypertension; E78.00 Pure hypercholesterolemia, unspecified; C34.90 Malignant neoplasm of unspecified part of unspecified bronchus or lung; K44.9 Diaphragmatic hernia without obstruction or gangrene; K76.89 Other specified diseases of liver; S32.011A Stable burst fracture of first lumbar vertebra, initial encounter for closed fracture; Z79.84 Long term (current) use of oral hypoglycemic drugs; Z79.899 Other long term (current) drug therapy; Z88.1 Allergy status to other antibiotic agents; Z91.041 Radiographic dye allergy status; Z20.822 Contact with and (suspected) exposure to COVID-19
CPT/HCPCS: 70450; 71045; 74177; 80048 ×2; 80053; 82962 ×3; 83605; 83690; 83735; 83880; 84100; 84484; 85025 ×3; 87086; 93005; 96372 ×2; 96374; 96375 ×2; 96376 ×2; 99285; G0378 ×4; U0003; U0005; 36415; 36416; 81003; 81015; J0696; J1200; J1650; J1815; J2270; J2405; J2920; J3490; J7050; Q0164; Q9967; S0028